=== PATIENT | female | born 1945 | race Caucasian/White ===

== ENCOUNTER 2020-11-03 07:08 | Outpatient (CLI) | payer MEDICARE ==
[2020-11-03 14:54] LABS: BASOPHILS # (AUTO) 0.1 10^3/uL (0.0-0.1); BASOPHILS % (AUTO) 1.3 %; EOSINOPHILS # (AUTO) 0.7 10^3/uL (0.0-0.7); EOSINOPHILS % (AUTO) 10.3 %; HCT - HEMATOCRIT 39.2 % (37.0-47.0); HGB - HEMOGLOBIN 12.2 g/dL (12.0-16.0); LYMPHOCYTES # (AUTO) 2.2 10^3/uL (1.5-3.5); LYMPHOCYTES % (AUTO) 32.4 %; MEAN CORPUSCULAR HEMOGLOBIN 28.1 pg (27.0-31.0); MEAN CORPUSCULAR HGB CONC 31.1 g/dL (32.0-36.0); MEAN CORPUSCULAR VOLUME 90.3 fL (81.0-99.0); MEAN PLATELET VOLUME 10.2 fL (7.9-10.8); MONOCYTES # (AUTO) 0.4 10^3/uL (0.0-1.0); MONOCYTES % (AUTO) 6.5 %; NEUTROPHILS # (AUTO) 3.4 10^3/uL (1.5-6.6); NEUTROPHILS % (AUTO) 49.2 %; PLT - PLATELET COUNT 278 10^3/uL (130-450); RED BLOOD COUNT 4.34 10^6/uL (4.20-5.40); RED CELL DISTRIBUTION WIDTH 13.2 % (12.0-15.0); WHITE BLOOD COUNT 6.8 x10^3/uL (4.8-10.8)
[2020-11-03 15:45] LABS: ALBUMIN 4.2 g/dL (3.2-5.5); ALBUMIN/GLOBULIN RATIO 1.6 (1.0-2.2); ALKALINE PHOSPHATASE 51 IU/L (42-121); ALT ALANINE AMINOTRANSFERASE 15 IU/L (10-60); AST ASPARTATE AMINOTRANSFERASE 21 IU/L (10-42); BILIRUBIN,TOTAL 0.9 mg/dL (0.2-1.0); BUN - BLOOD UREA NITROGEN 31 mg/dL (6-20); CALCIUM 9.5 mg/dL (8.5-10.3); CARBON DIOXIDE - CO2 28 mmol/L (21-32); CHLORIDE 103 mmol/L (101-111); CHOL/HDL RATIO 2.3 (<4.4); CHOLESTEROL 206 mg/dL; CREATININE 1.1 mg/dL (0.4-1.0); GFR - MDRD 49 (>89); GLUCOSE 100 mg/dL (70-100); HDL CHOLESTEROL 89 mg/dL; LDL CHOLESTEROL,CALCULATED 107 mg/dL; LDL/HDL RATIO 1.2 (<4.4); POTASSIUM 4.6 mmol/L (3.5-5.0); SODIUM 138 mmol/L (135-145); TOTAL PROTEIN 6.9 g/dL (6.7-8.2); TRIGLYCERIDES 51 mg/dL; VLDL CHOLESTEROL 10 mg/dL
== END 2020-11-03 07:09 | disposition home or self-care (01) ==
LOC: LAB.S 07:08
PROVIDERS: ATTEND Internal Medicine
DX: Z00.00 Encounter for general adult medical examination without abnormal findings (principal)
CPT/HCPCS: 36415; 80053; 80061; 83721; 84443; 85025

== ENCOUNTER 2020-11-30 21:05 | Outpatient (CLI) | payer MEDICARE | END 2020-11-30 21:06 | disposition critical access hospital (66) | LOC: EMS 21:05 | DX: Z04.3 Encounter for examination and observation following other accident (principal); M25.552 Pain in left hip; M25.532 Pain in left wrist | CPT/HCPCS: A0425; A0427 ==

== ENCOUNTER 2020-11-30 21:42 | Inpatient (IN) | payer MEDICARE ==
[2020-11-30] MEDS ORDERED: oxyCODONE 5 MG TABLET PO STA (23:32)
--- NOTE | 2020-11-30 23:51 | ED Physician Documentation ---
History of Present Illness - Stated complaint Stated Complaint: GLF - Chief complaint Chief Complaint: Trauma Ext - History obtained from History obtained from: Patient - Additonal information Additional information: 75-year-old woman presents with mechanical fall from standing today with sudden onset pain to the left hip and wrist that is constant, aching, severe, worse with range of motion of the wrist and hip. no HT, no loc. no other injury Review of Systems Skin: denies: Lesions, Laceration (s) Musculoskeletal: reports: Extremity pain, Joint pain Neurologic: denies: Focal weakness, Numbness PD PAST MEDICAL HISTORY - Allergies Allergies/Adverse Reactions: Allergies Allergy/AdvReac Type Severity Reaction Status Date / Time No Known Drug Allergies Allergy Verified 11/30/20 22:00 PD ED PE NORMAL - Vitals Vital signs reviewed: Yes - General General: Alert and oriented X 3, No acute distress, Well developed/nourished - HEENT HEENT: Atraumatic, PERRL, EOMI - Neck Neck: Supple, no meningeal sign - Derm Derm: Normal color, Warm and dry - Extremities Extremities: Other (deformity to L wrist with ttp. L hip tender with rom. 2+ BL radial and DP/PT pulses) - Neuro Neuro: Alert and oriented X 3, No motor deficit, No sensory deficit - Psych Psych: Normal mood, Normal affect Results - Vitals Vitals: Vital Signs - 24 hr 11/30/20 21:51 Temperature 35.8 C L Heart Rate 75 Respiratory 16 Rate Blood Pressure 219/91 H O2 Saturation 100 Oxygen O2 Source Room air PD MEDICAL DECISION MAKING - ED course ED course: 75-year-old woman presents with left intertrochanteric fracture and left wrist fracture. Discussed with orthopedics Dr. Benedict he will see her tomorrow. Will admit to medicine. Departure - Departure Disposition: [facility] DC/Xfer Clinical Impression: Hip fracture Distal radius fracture, left Qualifiers: Encounter type: initial encounter Fracture type: closed Condition: Stable Discharge Date/Time: 12/01/20 01:06
[2020-11-30] MEDS ORDERED: MORPHINE 2 MG/ML CARPUJECT IVP PRN (23:58)
--- NOTE | 2020-12-01 00:04 | HISTORY & PHYSICAL EXAMINATION ---
Chief Complaint - Chief Complaint Chief Complaint: Left wrist and hip pain History of Present Illness - Admitted From Admitted From:: Home - History Obtained From Records Reviewed: Yes History obtained from: Patient, ER Physician, EMR - History of Present Illness HPI Comment/Other: This is a 75-year-old female with a past medical history significant for hypertension who presents today complaining of left wrist and hip pain after a fall. She states she was walking her dog when the dog appeared to pull on the leash and she stumbled over her own feet and fell on her left side. She immediately complained of left hip and wrist pain. The pain is worse with movement. She reports no numbness in the extremities. She denies syncope or loss of consciousness. She states she felt nauseous after receiving fentanyl via EMS. She also felt chills and hot flashes on her way here. She denies any chest pain, dyspnea. She reports she is normally quite active. She denies any angina. She is able to climb up a flight of stairs without chest pain or dyspnea. She states she has been told she has a murmur in the past but to her knowledge this was not significant. She denies a history of stroke or diabetes. In the emergency department, she was found to have a left distal radius fracture and a left intertrochanteric femur fracture. This was discussed with orthopedic surgery who will evaluate her in the morning. Given the above findings, medicine was consulted for admission. I did discuss goals of care with the patient and she would like to be a DNR. History - Past Medical History Cardiovascular: reports: Hypertension, High cholesterol - Family & Social History Family History Comment/Other: Her father from prostate cancer. Both of her grandparents had a history of strokes. She reports no other significant family history. Living arrangement: At home Living Situation: With spouse/s.o. Social History Notes: She is a non-smoker. She drinks a half a beer with dinner on a regular basis. Meds/Allgy - Allergies Allergies/Adverse Reactions: Allergies Allergy/AdvReac Type Severity Reaction Status Date / Time No Known Drug Allergies Allergy Verified 11/30/20 22:00 Review of Systems - Constitutional Constitutional: reports: Fever, Chills, Other (Hot flashes.) - Cardiovascular Cariovascular: denies: Chest pain, Edema, Lightheadedness, Syncope, Exertional dyspnea, Decr. exercise tolerance - Respiratory Respiratory: denies: Cough, SOB at rest, SOB with exertion - Gastrointestinal Gastrointestinal: reports: Nausea. denies: Abdominal pain, Vomiting - Musculoskeletal Musculoskeletal: reports: Stiffness, Limited range of motion, Joint pain - Integumentary Integumentary: denies: Rash - Neurological Neurological: denies: General weakness, Focal weakness, Dizziness, Numbness, Pre-existing deficit - Hematologic/Lymphatic Hematologic/Lymphatic: denies: Anemia, Bleeding tendencies - All Other Systems All Other Systems: reports: Reviewed and negative Prior Level of Functionality: She is independent with her ADLs. Exam - Vital Signs Reviewed Vital Signs: Yes Vital Signs: Vital Signs x48h Temp Pulse Resp BP Pulse Ox 11/30/20 21:51 35.8 C L 75 16 219/91 H 100 - Physical Exam General Appearance: positive: Alert, Mild distress Eyes Bilateral: positive: Normal inspection, Conjunctivae nml ENT: positive: ENT inspection nml Neck: positive: Nml inspection Respiratory: positive: No respiratory distress. negative: Wheezes, Rales Cardiovascular: positive: Regular rate & rhythm, Systolic murmur. negative: No murmur, Tachycardia Abdomen: positive: Non-tender, No distention. negative: Tenderness Skin: positive: Warm, Dry Extremities: positive: No pedal edema, Other (Left lower extremity is externally rotated and shortened. There is mild tenderness over the lateral aspect of the left hip. Dorsalis pedis pulse is +2. Sensation intact. Left upper extremity is in a splint. Less than 2 seconds capillary refill.) Neurologic/Psychiatric: positive: Sensation nml, Other (Range of motion is limited due to pain.). negative: Disoriented to person, Disoriented to place, Disoriented to time, Sensory loss Conclusion/Plan - Problem List (1) Fracture of left hip Conclusion/Plan: This is secondary to mechanical fall. She will be made n.p.o. at midnight for surgical intervention with orthopedic surgery tomorrow. Pain control with Dilaudid IV as needed, Toradol IV as needed, and oral Tylenol and oxycodone as needed. She will need Fosamax 2 weeks postoperatively. PT and OT have been consulted as well as social work to assist with disposition but I am hopeful given she is quite active at baseline that she can go home with physical therapy. Qualifiers: Encounter type: initial encounter Fracture type: closed Qualified Code(s): S72.002A - Fracture of unspecified part of neck of left femur, initial encounter for closed fracture (2) Pre-op evaluation Conclusion/Plan: She has no active angina or dyspnea and is able to perform greater than 4 METS. Her Velarde perioperative risk is 0.2%. Given her murmur, we will order an echocardiogram for the morning. EKG has been ordered and is pending and unless both of these reveal any significant abnormalities then there would be no contraindication for surgical intervention. (3) Hypertension Conclusion/Plan: Her blood pressure is elevated with a systolic reading 200 which is likely exacerbated by her pain. We will resume her home benazepril and control her pain as mentioned above. There is no evidence of emergencies we will hold off on IV antihypertensives. Qualifiers: Hypertension type: primary hypertension Qualified Code(s): I10 - Essential (primary) hypertension (4) Distal radius fracture, left Conclusion/Plan: This is secondary to the fall. A splint was placed in the emergency department. Pain control with oxycodone as needed. Appreciate orthopedic surgery input. Qualifiers: Encounter type: initial encounter Fracture type: closed (5) Cardiac murmur Conclusion/Plan: She does have a systolic murmur on exam and we will order an echocardiogram for the morning. - Diagnostic Imaging Results Diagnostic Imaging Results: positive: Prelim report reviewed Core Measures - Anticipated LOS I expect patient to be DC'd or transferred within 96 hours.: Yes - Issues Hospital Issues and Management Plan: 75-year-old female who presents with a fall found to have a left hip fracture. We will admit her and consult with orthopedic surgery for surgical intervention. - DVT/VTE - Prophylaxis VTE/DVT Device ordered at admit?: Yes VTE/DVT Prophylaxis med ordered at admit?: Yes
[2020-12-01] MEDS: HYDROmorphone 2 MG/ML VIAL IVP PRN ×2 (01:10→05:53)
[2020-12-01] MEDS: SODIUM CHLORIDE FLUSH 0.9% 10 ML SYRINGE IVP SCH ×3 (01:10→16:28)
[2020-12-01 01:48] LABS: B. PARAPERTUSSIS- RESP PCR PAN NOT DETECTED; B. PERTUSSIS- RESP PCR PANEL NOT DETECTED; C. PNEUMONIAE- RESP PCR PANEL NOT DETECTED; CORONAVIRUS 229E-RESP PCR NOT DETECTED; CORONAVIRUS HKU1-RESP PCR NOT DETECTED; CORONAVIRUS NL63-RESP PCR NOT DETECTED; CORONAVIRUS OC43-RESP PCR NOT DETECTED; HUMAN METAPNEUMOVIRUS NOT DETECTED; INFLUENZA A- RESP PCR PANEL NOT DETECTED; INFLUENZA B - RESP PCR PANEL NOT DETECTED; M. PNEUMONIAE- RESP PCR PANEL NOT DETECTED; PARAINFLUENZA VIRUS 1 NOT DETECTED; PARAINFLUENZA VIRUS 2 NOT DETECTED; PARAINFLUENZA VIRUS 3 NOT DETECTED; PARAINFLUENZA VIRUS 4 NOT DETECTED; RHINOVIRUS/ENTEROVIRUS DETECTED; RSV- RESP PCR PANEL NOT DETECTED; SARS-CoV-2 -RESP PCR PANEL NOT DETECTED
[2020-12-01 05:00] LABS: BASOPHILS % (AUTO) 0.3 %; EOSINOPHILS % (AUTO) 0.1 %; HCT - HEMATOCRIT 32.9 % (37.0-47.0); HGB - HEMOGLOBIN 10.7 g/dL (12.0-16.0); LYMPHOCYTES # (AUTO) 0.9 10^3/uL (1.5-3.5); LYMPHOCYTES % (AUTO) 8.6 %; MEAN CORPUSCULAR HGB CONC 32.5 g/dL (32.0-36.0); MEAN CORPUSCULAR VOLUME 89.2 fL (81.0-99.0); MEAN PLATELET VOLUME 9.8 fL (7.9-10.8); MONOCYTES # (AUTO) 0.4 10^3/uL (0.0-1.0); MONOCYTES % (AUTO) 4.1 %; NEUTROPHILS # (AUTO) 9.2 10^3/uL (1.5-6.6); NEUTROPHILS % (AUTO) 86.5 %; PLT - PLATELET COUNT 234 10^3/uL (130-450); RED BLOOD COUNT 3.69 10^6/uL (4.20-5.40); RED CELL DISTRIBUTION WIDTH 12.7 % (12.0-15.0); WHITE BLOOD COUNT 10.6 x10^3/uL (4.8-10.8)
[2020-12-01 05:13] LABS: CALCIUM 9.3 mg/dL (8.5-10.3); MAGNESIUM 2.2 mg/dL (1.7-2.8); POTASSIUM 4.4 mmol/L (3.5-5.0)
[2020-12-01] MEDS: ONDANSETRON 4 MG/2 ML VIAL IVP PRN ×2 (05:53→17:40)
--- NOTE | 2020-12-01 08:33 | XRAY Report ---
PROCEDURE: Wrist 2 View LT INDICATIONS: fall; r/o fx TECHNIQUE: 3 views of the wrist were acquired. COMPARISON: None FINDINGS: Bones: No dislocations. No suspicious bony lesions. There is a dorsally angulated intra-articular mildly comminuted fracture involving the distal radius, and a definite distal ulnar fracture plane is not seen. Scaphoid view: Not obtained but the scaphoid visualized appears normal except for mild degenerative change. Soft tissues: No suspicious soft tissue calcifications. IMPRESSION: Distal radius Colle's fracture with dorsal angulation. Reviewed by: Omar Marie MD on 12/01/2020 8:31 AM PDT Approved by: Omar Marie MD on 12/01/2020 8:31 AM PDT Station ID: [id number]
--- NOTE | 2020-12-01 08:34 | XRAY Report ---
PROCEDURE: Hip w/Pelvis 2-3V LT INDICATIONS: fall TECHNIQUE: AP pelvis with lateral view(s) of the left hip(s). COMPARISON: None. FINDINGS: Bones: No dislocations. Pelvic ring appears intact. No suspicious bony lesions. There is an inter trochanteric left hip fracture, and degenerative osteoarthritic change at each hip is moderately shaji re. Soft tissues: The visualized bowel gas pattern is normal. No suspicious soft tissue calcifications. IMPRESSION: Intertrochanteric left hip fracture, moderately severe bilateral joint osteoarthritis. N o pelvic fracture is found. Reviewed by: Omar Marie MD on 12/01/2020 8:32 AM PDT Approved by: Omar Marie MD on 12/01/2020 8:32 AM PDT Station ID: [id number]
--- NOTE | 2020-12-01 08:46 | CONSULTATION NOTE ---
Referring Provider Name of Referring Provider:: Dr. Milan, Dr. Tejada Consult Date: 12/01/20 Chief Complaint - Chief Complaint Chief Complaint: Pain left hip and left wrist following fall History of Present Illness - History Obtained From Records Reviewed: Yes History obtained from: Patient Exam Limitations: Lethargy from pain medications - History of Present Illness HPI Comment/Other: 75-year-old woman who fell from standing height while walking her dog. She became entangled with the lesion her dog or both leading to fall. She enjoys walking and enjoys being active outdoors. After the fall she had immediate pain to left hip and thigh as well as left wrist as the fall was on her left side. She has no complaints of acute pain to right hip. She has a history of pain prior to fall to both hips but apparently has tolerated it. The pain to both hips have been present for least 5 years. She has no neurologic or vascular symptoms to left upper or left lower extremity. She denies syncope, chest pain, shortness of breath, dizziness or loss of consciousness associated with her fall prior to admission. She was seen in the emergency room yesterday evening and admitted to the hospital. History - Past Medical History Cardiovascular: reports: Hypertension, High cholesterol MRSA Hx?: No - Past Surgical History HEENT: reports: Rhinoplasty - Family & Social History Family History Comment/Other: Her father from prostate cancer. Both of her grandparents had a history of strokes. She reports no other significant family history. Living arrangement: At home Living Situation: With spouse/s.o. Social History Notes: She is a non-smoker. She drinks a half a beer with dinner on a regular basis. - POLST Patient has POLST: No Meds/Allgy - Allergies Allergies/Adverse Reactions: Allergies Allergy/AdvReac Type Severity Reaction Status Date / Time No Known Drug Allergies Allergy Verified 11/30/20 22:00 Exam - Vital Signs Vital Signs: Vital Signs x48h Temp Pulse Pulse Resp BP BP Pulse Ox 12/01/20 07:43 36.9 C 66 16 150/67 H 99 12/01/20 01:08 37.6 C 72 16 153/61 H 97 12/01/20 00:45 36.1 C L 63 16 147/62 H 96 - Physical Exam General Appearance: positive: No acute distress Neck: negative: Other (Nontender) Respiratory: positive: Chest non-tender, No respiratory distress Cardiovascular: positive: Regular rate & rhythm Peripheral Pulses: positive: 1+ Skin: positive: Color nml, Dry Extremities: positive: Other Neurologic/Psychiatric: positive: Oriented x3 Conclusion and Plan - Lab Results Laboratory Results 12/01/20 04:50: Sodium 138, Potassium 4.4, Chloride 101, Carbon Dioxide 26, Anion Gap 11.0, BUN 29 H, Creatinine 1.0, Estimated GFR (MDRD) 54 L, Glucose 158 H, Calcium 9.3, Magnesium 2.2 12/01/20 04:50: WBC 10.6, RBC 3.69 L, Hgb 10.7 L, Hct 32.9 L, MCV 89.2, MCH 29.0, MCHC 32.5, RDW 12.7, Plt Count 234, MPV 9.8, Neut # (Auto) 9.2 H, Lymph # (Auto) 0.9 L, [place] # (Auto) 0.4, Eos # (Auto) 0.0, Baso # (Auto) 0.0, Absolute Nucleated RBC 0.00, Nucleated RBC % 0.0 12/01/20 00:35: Nasal Adenovirus (PCR) NOT DETECTED, Nasal B. parapertussis DNA (PCR) NOT DETECTED, Nasal Coronavir 229E PCR NOT DETECTED, Nasal Coronavir HKU1 PCR NOT DETECTED, Nasal Coronavir NL63 PCR NOT DETECTED, Nasal Coronavir OC43 PCR NOT DETECTED, Nasal Enterovir/Rhinovir PCR DETECTED A, Nasal Influenza B PCR NOT DETECTED, Nasal Influenza A PCR NOT DETECTED, Nasal Parainfluen 1 PCR NOT DETECTED, Nasal Parainfluen 2 PCR NOT DETECTED, Nasal Parainfluen 3 PCR NOT DETECTED, Nasal Parainfluen 4 PCR NOT DETECTED, Nasal RSV (PCR) NOT DETECTED, Nasal B.pertussis DNA PCR NOT DETECTED, Nasal C.pneumoniae (PCR) NOT DETECTED, Alex Human Metapneumo PCR NOT DETECTED, Nasal M.pneumoniae (PCR) NOT DETECTED, Nasal SARS-CoV-2 (PCR) NOT DETECTED - Diagnostic Imaging Results Diagnostic Imaging Results: negative: Read independently (X-rays of the left wrist show a mildly shortened angulated fracture of the left distal radius. X- rays of the left hip show a mildly displaced intertrochanteric fracture left hip. Both hip joints show advanced hip joint space narrowing with osteophytes consistent with bilateral hip osteoarthritis) - Diagnosis Diagnosis: 1. Mildly displaced intertrochanteric fracture left hip. 2. Displaced left distal radius fracture, closed. 3. Bilateral hip osteoarthritis - Plan Plan: The plan would be for stabilization of her intertrochanteric fracture with open reduction internal fixation left hip The left distal radius can be treated closed or open. Results are comparable and probably will proceed with the least close reduction of left distal radius. She may require bilateral hip arthroplasties in the future and this was discussed with her. These would be best done as elective procedures in my opinion. The patient is in agreement to the proposed procedures. I have tried to discussed the risk, goals and likelihood of achieving goals, alternatives and their consequences, disability and rarely . She understands that even with fracture healing of her left hip, a hip replacement may be likely. She also understands that the left wrist will have some stiffness as part of the natural history of fracture healing of the left distal radius.
[2020-12-01 08:54] LABS: ABSOLUTE RETICS # AUTO 0.048 10^6/uL (0.020-0.110); RED BLOOD COUNT 3.63 10^6/uL (4.20-5.40); RETICULOCYTE COUNT % (AUTO) 1.32 % (0.5-2.3)
[2020-12-01] MEDS ORDERED: HYDROmorphone 2 MG/ML VIAL IVP PRN (08:56)
[2020-12-01] MEDS ORDERED: SODIUM CHLORIDE 0.9% 1,000 ML IV SCH (09:00)
[2020-12-01] MEDS ORDERED: ENOXAPARIN 40 MG/0.4 ML SYRINGE SUBQ SCH (09:00)
[2020-12-01] MEDS: ENOXAPARIN 40 MG/0.4 ML SYRINGE SUBQ SCH (09:24)
[2020-12-01 09:25] LABS: % IRON SATURATION 10 % (20-50); IRON 31 ug/dL (28-170); TOTAL IRON BINDING CAPACITY 311 ug/dL (250-450); TRANSFERRIN 222 mg/dL (192-382)
[2020-12-01] MEDS: SODIUM CHLORIDE 0.9% 1,000 ML IV SCH (09:27)
[2020-12-01] MEDS: PROCHLORPERAZINE 10 MG/2 ML VIAL IVP PRN (10:26)
[2020-12-01 11:23] LABS: FERRITIN 105.6 ng/mL (11.0-306.8)
[2020-12-01] MEDS: KETOROLAC 30 MG/ML VIAL IVP PRN ×2 (12:42→20:17)
--- NOTE | 2020-12-01 14:18 | PHARMACY PROGRESS NOTE ---
- Best Possible Medication History Admit Date and Time: 11/30/20 6615 Processed by: Pharmacy Medication History completed: Yes Patient Interview: Completed (PATIENT ABLE TO CONFIRM HOME MEDICATIONS) As the person ultimately responsible for medication therapy, providers are able to order a medication from an existing home medication list in [facility] via the "Reconcile Routine" prior to Confirmation of that medication by applications support engineer. Such practice is discouraged except when the physician, in their clinical judgment, deems that a medical need exists for a medication without regard to previous use.
[2020-12-01] MEDS: ACETAMINOPHEN 325 MG TABLET PO PRN ×2 (16:52→22:54)
[2020-12-01] MEDS ORDERED: ZOLPIDEM 5 MG TABLET PO PRN (18:03)
[2020-12-01] MEDS: ATORVASTATIN 40 MG TABLET PO SCH (20:34)
[2020-12-02] MEDS: ONDANSETRON ODT 4 MG TABLET TL PRN ×2 (00:45→12:49)
[2020-12-02] MEDS: oxyCODONE 5 MG TABLET PO PRN ×4 (00:45→16:55)
[2020-12-02] MEDS: SODIUM CHLORIDE FLUSH 0.9% 10 ML SYRINGE IVP SCH ×3 (00:48→18:17)
[2020-12-02] MEDS: SODIUM CHLORIDE 0.9% 1,000 ML IV SCH ×5 (03:37→20:17)
[2020-12-02 05:36] LABS: BASOPHILS % (AUTO) 0.4 %; EOSINOPHILS # (AUTO) 0.1 10^3/uL (0.0-0.7); HGB - HEMOGLOBIN 8.9 g/dL (12.0-16.0); LYMPHOCYTES # (AUTO) 1.7 10^3/uL (1.5-3.5); LYMPHOCYTES % (AUTO) 21.5 %; MEAN CORPUSCULAR VOLUME 87.9 fL (81.0-99.0); MEAN PLATELET VOLUME 10.1 fL (7.9-10.8); MONOCYTES # (AUTO) 0.5 10^3/uL (0.0-1.0); MONOCYTES % (AUTO) 6.9 %; NEUTROPHILS # (AUTO) 5.3 10^3/uL (1.5-6.6); NEUTROPHILS % (AUTO) 69.7 %; PLT - PLATELET COUNT 189 10^3/uL (130-450); RED BLOOD COUNT 3.07 10^6/uL (4.20-5.40); WHITE BLOOD COUNT 7.7 x10^3/uL (4.8-10.8)
[2020-12-02 05:39] LABS: CALCIUM 8.6 mg/dL (8.5-10.3); CREATININE 1.3 mg/dL (0.4-1.0); MAGNESIUM 2.3 mg/dL (1.7-2.8)
[2020-12-02] MEDS ORDERED: KETOROLAC 30 MG/ML VIAL IVP PRN (07:09)
[2020-12-02] MEDS: ACETAMINOPHEN 325 MG TABLET PO PRN (08:42)
[2020-12-02] MEDS: ENOXAPARIN 40 MG/0.4 ML SYRINGE SUBQ SCH (08:51)
[2020-12-02] MEDS ORDERED: lisinopriL 20 MG TABLET PO SCH (09:00)
[2020-12-02] MEDS ORDERED: ENOXAPARIN 40 MG/0.4 ML SYRINGE SUBQ SCH (09:00)
[2020-12-02] MEDS ORDERED: BUPIVACAINE 0.25% PF 30 ML VIAL ONE (10:13)
--- NOTE | 2020-12-02 10:21 | ANESTHESIA ---
Pre-Anesthesia VS, & Labs - Diagnosis Diagnosis 1. Mildly displaced intertrochanteric fracture left hip 2. Displaced left distal radius fracture, closed 3. Bilateral hip osteoarthritis - Procedure L hip nail, L wrist closed reduction Vital Signs: Temp Pulse Resp BP Pulse Ox 37.1 C 77 14 156/73 H 98 12/02/20 09:33 12/02/20 09:33 12/02/20 09:33 12/02/20 09:33 12/02/20 09:33 Height: 5 ft 6 in Weight (kg): 58.967 kg Body Mass Index: 20.9 BMI Classification: Healthy weight - NPO >8 hours - Is Patient ?: No - Lab Results Current Lab Results: Laboratory Tests 12/02/20 04:34: Sodium 135, Potassium 4.0, Chloride 100 L, Carbon Dioxide 25, Anion Gap 10.0, BUN 33 H, Creatinine 1.3 H, Estimated GFR (MDRD) 40 L, Glucose 112 H, Calcium 8.6, Magnesium 2.3 12/02/20 04:34: WBC 7.7, RBC 3.07 L, Hgb 8.9 L, Hct 27.0 L, MCV 87.9, MCH 29.0, MCHC 33.0, RDW 13.0, Plt Count 189, MPV 10.1, Neut # (Auto) 5.3, Lymph # (Auto) 1.7, [place] # (Auto) 0.5, Eos # (Auto) 0.1, Baso # (Auto) 0.0, Absolute Nucleated RBC 0.00, Nucleated RBC % 0.0 12/01/20 04:50: Lactate Dehydrogenase 146 12/01/20 04:50: Ferritin 105.6, Vitamin B12 2231 H 12/01/20 04:50: Iron 31, TIBC 311, % Saturation 10 L, Transferrin 222 12/01/20 04:50: RBC 3.63 L, Reticulocyte % (Auto) 1.32, Absolute Retic 0.048 12/01/20 04:50: Sodium 138, Potassium 4.4, Chloride 101, Carbon Dioxide 26, Anio n Gap 11.0, BUN 29 H, Creatinine 1.0, Estimated GFR (MDRD) 54 L, Glucose 158 H, Calcium 9.3, Magnesium 2.2 12/01/20 04:50: WBC 10.6, RBC 3.69 L, Hgb 10.7 L, Hct 32.9 L, MCV 89.2, MCH 29.0, MCHC 32.5, RDW 12.7, Plt Count 234, MPV 9.8, Neut # (Auto) 9.2 H, Lymph # (Auto) 0.9 L, [place] # (Auto) 0.4, Eos # (Auto) 0.0, Baso # (Auto) 0.0, Absolute Nucleated RBC 0.00, Nucleated RBC % 0.0 Lab results reviewed: Yes Fish Bones: 12/02/20 04:34 12/02/20 04:34 Home Medications and Allergies Home Medications: Ambulatory Orders Benazepril HCl [Lotensin] 20 mg PO DAILY 12/01/20 Rosuvastatin Calcium [Crestor] 20 mg PO QPM 12/01/20 Zolpidem Tartrate [Ambien Cr] 6.25 mg PO QPM PRN 12/01/20 Active Medications Acetaminophen (Acetaminophen 325 Mg Tablet) 650 mg PO Q4HR PRN PRN Reason: Pain 1 to 4 Last Admin: 12/02/20 08:42 Dose: 650 mg Documented by: Atorvastatin Calcium (Atorvastatin 40 Mg Tablet) 40 mg PO QPM [facility] Last Admin: 12/01/20 20:34 Dose: 40 mg Documented by: Enoxaparin Sodium (Enoxaparin 40 Mg/0.4 Ml Syringe) 40 mg SUBQ DAILY [facility] Last Admin: 12/02/20 08:51 Dose: Not Given Documented by: Hydralazine HCl (Hydralazine Inj 20 Mg/Ml Vial) 10 mg IVP QID PRN PRN Reason: Hypertensive Emergency Hydromorphone HCl (Hydromorphone 1 Mg/Ml Carpuject) 1 mg IVP Q2HR PRN PRN Reason: PAIN Ondansetron HCl (Ondansetron 4 Mg/2 Ml Vial) 4 mg IVP Q6HR PRN PRN Reason: Nausea / Vomiting Last Admin: 12/01/20 17:40 Dose: 4 mg Documented by: Ondansetron HCl (Ondansetron Odt 4 Mg Tablet) 4 mg TL Q6HR PRN PRN Reason: Nausea / Vomiting Last Admin: 12/02/20 00:45 Dose: 4 mg Documented by: Oxycodone HCl (Oxycodone 5 Mg Tablet) 5 mg PO Q4HR PRN PRN Reason: Pain 5 to 7 Last Admin: 12/02/20 10:05 Dose: 5 mg Documented by: Prochlorperazine Edisylate (Prochlorperazine 10 Mg/2 Ml Vial) 10 mg IVP Q6HR PRN PRN Reason: Nausea / Vomiting Last Admin: 12/01/20 10:26 Dose: 10 mg Documented by: Sodium Chloride (Sodium Chloride Flush 0.9% 10 Ml Syringe) 10 ml IVP PRN PRN PRN Reason: NEEDED PER PROVIDER ORDERS Sodium Chloride (Sodium Chloride Flush 0.9% 10 Ml Syringe) 10 ml IVP 0100,0900,1700 NITO Last Admin: 12/02/20 00:48 Dose: 10 ml Documented by: Zolpidem Tartrate (Zolpidem 5 Mg Tablet) 5 mg PO QPM PRN PRN Reason: Insomnia Benazepril HCl [Lotensin] 20 mg PO DAILY 12/01/20 Rosuvastatin Calcium [Crestor] 20 mg PO QPM 12/01/20 Zolpidem Tartrate [Ambien Cr] 6.25 mg PO QPM PRN 12/01/20 Allergies/Adverse Reactions: Allergies Allergy/AdvReac Type Severity Reaction Status Date / Time No Known Drug Allergies Allergy Verified 11/30/20 22:00 Anes History & Medical History - Anesthetic History Anesthesia Complications: reports: No previous complications Family history of Anesthesia Complications: Denies Family history of Malignant Hyperthermia: Denies - Medical History Cardiovascular: reports: Hypertension, High cholesterol Smoking Status: Never smoker - Surgical History Eyes Ears Nose Throat (EENT): reports: Rhinoplasty Exam General: Alert, Oriented x3, Cooperative Dental: WNL Mouth Openin Fingerbreadth Neck Mobility: Normal Mallampati classification: II Thyromental Distance: 4-6 cm Respiratory: Lungs clear, Normal breath sounds, No respiratory distress Cardiovascular: Regular rate Neurological: Normal speech Mental/Cognitive Status: Alert/Oriented X3, Normal for patient Cognitive Status: Within normal limits Plan Anesthesia Type: General (backup), Spinal, Fascia [place] Block Regional Block: Per Surgeon's request for Post Op pain control Consent for Procedure(s) Verified and Reviewed: Yes Code Status: Attempt Resuscitation ASA classification: 2-Mild systemic disease Is this case an emergency?: No
[2020-12-02] MEDS ORDERED: MIDAZOLAM 2 MG/2 ML VIAL ONE (10:58)
[2020-12-02] MEDS ORDERED: PHENYLEPHRINE 10 MG/ML VIAL ONE (10:59)
[2020-12-02] MEDS ORDERED: PROPOFOL 200 MG/20 ML VIAL IVP ONE ×2 (11:00→13:42)
[2020-12-02] MEDS ORDERED: LIDOCAINE-MPF 2% 5 ML VIAL ONE (11:01)
[2020-12-02] MEDS ORDERED: KETAMINE 500 MG/10 ML VIAL ONE (12:08)
[2020-12-02] MEDS ORDERED: SODIUM CHLORIDE 0.9% 10 ML VIAL IVP ONE (12:09)
--- NOTE | 2020-12-02 12:24 | PROVIDER PROGRESS NOTE ---
Assessment/Plan - Problem List (1) Fracture of left hip Qualifiers: Encounter type: initial encounter Fracture type: closed Qualified Code(s): S72.002A - Fracture of unspecified part of neck of left femur, initial encounter for closed fracture Assessment/Plan: pt will have left hip repair on today noon, will followup. continue pain control, continue PT/OT, DVT prophylaxis per surgeon (2) Pre-op evaluation Conclusion/Plan: my colleague did pre-op evaluation. ECHO reveals normal EF with mild aortic stenosis. EKG reveals Sinus rhythm. She has no active angina or dyspnea and is able to perform greater than 4 METS. Her [place] perioperative risk is 0.2%. (3) Hypertension stable. continue Vital signs monitor (4) Distal radius fracture, left stable. This is secondary to the fall. A splint was placed in the emergency department. Pain control with oxycodone and HydroMorphine as needed. Appreci ate orthopedic surgery input. (5) Cardiac murmur ECHO reveals normal EF with mild aortic stenosis. EKG reveals Sinus rhythm. (6)dehydration pt has slight elevated creatinine and dehydration, order IVF 125cc/h, lab monitor - Current Meds Current Meds: Current Medications Generic Name Dose Route Start Last Admin Trade Name Freq PRN Reason Stop Dose Admin Acetaminophen 650 mg 11/30/20 23:58 12/02/20 08:42 Acetaminophen 325 Mg Tablet PO 650 mg Q4HR PRN Administration Pain 1 to 4 Atorvastatin Calcium 40 mg 12/01/20 21:00 12/01/20 20:34 Atorvastatin 40 Mg Tablet PO 40 mg QPM NITO Administration Enoxaparin Sodium 40 mg 12/01/20 09:02 12/02/20 08:51 Enoxaparin 40 Mg/0.4 Ml Syringe SUBQ Not Given DAILY NITO Ondansetron HCl 4 mg 11/30/20 23:58 12/01/20 17:40 Ondansetron 4 Mg/2 Ml Vial IVP 4 mg Q6HR PRN Administration Nausea / Vomiting Ondansetron HCl 4 mg 11/30/20 23:58 12/02/20 00:45 Ondansetron Odt 4 Mg Tablet TL 4 mg Q6HR PRN Administration Nausea / Vomiting Oxycodone HCl 5 mg 11/30/20 23:58 12/02/20 10:05 Oxycodone 5 Mg Tablet PO 5 mg Q4HR PRN Administration Pain 5 to 7 Prochlorperazine Edisylate 10 mg 12/01/20 08:56 12/01/20 10:26 Prochlorperazine 10 Mg/2 Ml Vial IVP 10 mg Q6HR PRN Administration Nausea / Vomiting Sodium Chloride 10 ml 12/01/20 01:00 12/02/20 00:48 Sodium Chloride Flush 0.9% 10 Ml Syringe IVP 10 ml 0100,0900,1700 NITO Administration - Lab Result Fish Bone Diagrams: 12/02/20 04:34 12/02/20 04:34 - Additional Planning My Orders: My Active Orders 12/01/20 18:03 Zolpidem [Ambien] 5 mg PO QPM PRN 12/01/20 21:00 Atorvastatin [Lipitor] 40 mg PO QPM 12/02/20 00:01 NPO except Meds at Midnight [DIET] 12/02/20 07:12 hydrALAZINE INJ [Apresoline Inj] 10 mg IVP QID PRN 12/02/20 07:13 Incentive Spirometry - RT [RC] .tid 12/02/20 14:00 H&H [HEMOGLOBIN AND HEMATOCRIT] [HEME] Timed Subjective - Subjective Patient Reports: Feeling Better Objective Vital Signs: Vital Signs - 24 hr 12/01/20 12/02/20 12/02/20 16:07 00:15 09:33 Temperature 36.9 C 37.1 C 37.1 C Heart Rate [ 71 78 77 Brachial] Respiratory 18 16 14 Rate Blood Pressure 143/67 H 145/79 H 156/73 H [Right Brachial artery] O2 Saturation 99 97 98 Oxygen O2 Source Room air I&O (Last 24 Hrs): Intake and Output Totals x24h 11/30/20 12/01/20 12/02/20 23:59 23:59 23:59 Intake Total 1432.96 490.48 Output Total 80 Balance 1352.96 490.48 General: Alert, Oriented x3, Cooperative, No acute distress HEENT: Atraumatic Neck: Supple Lymphatic: no adenopathy Neuro: Alert, Non Focal, Oriented Times 3 Cardiovascular: Regular rate, Normal S1, Normal S2 Respiratory: Chest non-tender, No respiratory distress Abdomen: Normal bowel sounds, Soft Extremities: Normal pulses - Results Results: Laboratory Results WBC 7.7 x10^3/uL (4.8-10.8) 12/02/20 04:34 RBC 3.07 10^6/uL (4.20-5.40) L 12/02/20 04:34 Hgb 8.9 g/dL (12.0-16.0) L 12/02/20 04:34 Hct 27.0 % (37.0-47.0) L 12/02/20 04:34 MCV 87.9 fL (81.0-99.0) 12/02/20 04:34 MCH 29.0 pg (27.0-31.0) 12/02/20 04:34 MCHC 33.0 g/dL (32.0-36.0) 12/02/20 04:34 RDW 13.0 % (12.0-15.0) 12/02/20 04:34 Plt Count 189 10^3/uL (130-450) 12/02/20 04:34 MPV 10.1 fL (7.9-10.8) 12/02/20 04:34 Reticulocyte % (Auto) 1.32 % (0.5-2.3) 12/01/20 04:50 Neut # (Auto) 5.3 10^3/uL (1.5-6.6) 12/02/20 04:34 Lymph # (Auto) 1.7 10^3/uL (1.5-3.5) 12/02/20 04:34 [place] # (Auto) 0.5 10^3/uL (0.0-1.0) 12/02/20 04:34 Eos # (Auto) 0.1 10^3/uL (0.0-0.7) 12/02/20 04:34 Baso # (Auto) 0.0 10^3/uL (0.0-0.1) 12/02/20 04:34 Absolute Nucleated RBC 0.00 x10^3/uL 12/02/20 04:34 Nucleated RBC % 0.0 /100WBC 12/02/20 04:34 Absolute Retic 0.048 10^6/uL (0.020-0.110) 12/01/20 04:50 Sodium 135 mmol/L (135-145) 12/02/20 04:34 Potassium 4.0 mmol/L (3.5-5.0) 12/02/20 04:34 Chloride 100 mmol/L (101-111) L 12/02/20 04:34 Carbon Dioxide 25 mmol/L (21-32) 12/02/20 04:34 Anion Gap 10.0 (6-13) 12/02/20 04:34 BUN 33 mg/dL (6-20) H 12/02/20 04:34 Creatinine 1.3 mg/dL (0.4-1.0) H 12/02/20 04:34 Estimated GFR (MDRD) 40 (>89) L 12/02/20 04:34 Glucose 112 mg/dL (70-100) H 12/02/20 04:34 Calcium 8.6 mg/dL (8.5-10.3) 12/02/20 04:34 Magnesium 2.3 mg/dL (1.7-2.8) 12/02/20 04:34 Iron 31 ug/dL (28-170) 12/01/20 04:50 TIBC 311 ug/dL (250-450) 12/01/20 04:50 % Saturation 10 % (20-50) L 12/01/20 04:50 Transferrin 222 mg/dL (192-382) 12/01/20 04:50 Ferritin 105.6 ng/mL (11.0-306.8) 12/01/20 04:50 Lactate Dehydrogenase 146 IU/L (91-225) 12/01/20 04:50 Vitamin B12 2231 pg/mL (180-914) H 12/01/20 04:50 Nasal Adenovirus (PCR) NOT DETECTED 12/01/20 00:35 Nasal B. parapertussis DNA (PCR) NOT DETECTED 12/01/20 00:35 Nasal Coronavir 229E PCR NOT DETECTED 12/01/20 00:35 Nasal Coronavir HKU1 PCR NOT DETECTED 12/01/20 00:35 Nasal Coronavir NL63 PCR NOT DETECTED 12/01/20 00:35 Nasal Coronavir OC43 PCR NOT DETECTED 12/01/20 00:35 Nasal Enterovir/Rhinovir PCR DETECTED A 12/01/20 00:35 Nasal Influenza B PCR NOT DETECTED 12/01/20 00:35 Nasal Influenza A PCR NOT DETECTED 12/01/20 00:35 Nasal Parainfluen 1 PCR NOT DETECTED 12/01/20 00:35 Nasal Parainfluen 2 PCR NOT DETECTED 12/01/20 00:35 Nasal Parainfluen 3 PCR NOT DETECTED 12/01/20 00:35 Nasal Parainfluen 4 PCR NOT DETECTED 12/01/20 00:35 Nasal RSV (PCR) NOT DETECTED 12/01/20 00:35 Nasal B.pertussis DNA PCR NOT DETECTED 12/01/20 00:35 Nasal C.pneumoniae (PCR) NOT DETECTED 12/01/20 00:35 Alex Human Metapneumo PCR NOT DETECTED 12/01/20 00:35 Nasal M.pneumoniae (PCR) NOT DETECTED 12/01/20 00:35 Nasal SARS-CoV-2 (PCR) NOT DETECTED 12/01/20 00:35 ABX Reporting Has patient been on IV antibiotics over the past 48 hours?: No Current Medications - Current Medications Current Medications: Active Medications Acetaminophen (Acetaminophen 325 Mg Tablet) 650 mg PO Q4HR PRN PRN Reason: Pain 1 to 4 Last Admin: 12/02/20 08:42 Dose: 650 mg Documented by: Atorvastatin Calcium (Atorvastatin 40 Mg Tablet) 40 mg PO QPM [facility] Last Admin: 12/01/20 20:34 Dose: 40 mg Documented by: Enoxaparin Sodium (Enoxaparin 40 Mg/0.4 Ml Syringe) 40 mg SUBQ DAILY [facility] Last Admin: 12/02/20 08:51 Dose: Not Given Documented by: Hydralazine HCl (Hydralazine Inj 20 Mg/Ml Vial) 10 mg IVP QID PRN PRN Reason: Hypertensive Emergency Hydromorphone HCl (Hydromorphone 1 Mg/Ml Carpuject) 1 mg IVP Q2HR PRN PRN Reason: PAIN Sodium Chloride (Normal Saline 0.9%) 1,000 mls @ 125 mls/hr IV .Q8H [facility] Ondansetron HCl (Ondansetron 4 Mg/2 Ml Vial) 4 mg IVP Q6HR PRN PRN Reason: Nausea / Vomiting Last Admin: 12/01/20 17:40 Dose: 4 mg Documented by: Ondansetron HCl (Ondansetron Odt 4 Mg Tablet) 4 mg TL Q6HR PRN PRN Reason: Nausea / Vomiting Last Admin: 12/02/20 12:49 Dose: 4 mg Documented by: Oxycodone HCl (Oxycodone 5 Mg Tablet) 5 mg PO Q4HR PRN PRN Reason: Pain 5 to 7 Last Admin: 12/02/20 10:05 Dose: 5 mg Documented by: Prochlorperazine Edisylate (Prochlorperazine 10 Mg/2 Ml Vial) 10 mg IVP Q6HR PRN PRN Reason: Nausea / Vomiting Last Admin: 12/01/20 10:26 Dose: 10 mg Documented by: Sodium Chloride (Sodium Chloride Flush 0.9% 10 Ml Syringe) 10 ml IVP PRN PRN PRN Reason: NEEDED PER PROVIDER ORDERS Sodium Chloride (Sodium Chloride Flush 0.9% 10 Ml Syringe) 10 ml IVP 0100,0900,1700 NITO Last Admin: 12/02/20 13:44 Dose: Not Given Documented by: Zolpidem Tartrate (Zolpidem 5 Mg Tablet) 5 mg PO QPM PRN PRN Reason: Insomnia Benazepril HCl [Lotensin] 20 mg PO DAILY 12/01/20 Rosuvastatin Calcium [Crestor] 20 mg PO QPM 12/01/20 Zolpidem Tartrate [Ambien Cr] 6.25 mg PO QPM PRN 12/01/20
[2020-12-02] MEDS ORDERED: ceFAZolin 1 GM VIAL ONE (13:39)
[2020-12-02] MEDS ORDERED: TRANEXAMIC ACID 1,000 MG/10 ML VIAL ONE (13:46)
[2020-12-02] MEDS ORDERED: HYDROmorphone 0.5 MG/0.5 ML SYRINGE IVP PRN (14:37)
[2020-12-02] MEDS ORDERED: MORPHINE 2 MG/ML CARPUJECT IVP PRN (14:37)
[2020-12-02] MEDS ORDERED: ePHEDrine 50 MG/ML VIAL IVP PRN (14:37)
[2020-12-02] MEDS ORDERED: METOCLOPRAMIDE 10 MG/2 ML VIAL IVP PRN (14:37)
[2020-12-02] MEDS ORDERED: ONDANSETRON 4 MG/2 ML VIAL IVP PRN (14:37)
[2020-12-02] MEDS ORDERED: fentaNYL 100 MCG/2 ML VIAL IVP PRN (14:37)
[2020-12-02] MEDS ORDERED: NALOXONE 0.4 MG/ML VIAL IVP PRN (14:37)
[2020-12-02] MEDS ORDERED: ATROPINE ABBOJECT 1 MG/10 ML SYRINGE IVP PRN (14:37)
[2020-12-02] MEDS ORDERED: LACTATED RINGERS 1,000 ML IV SCH (15:00)
[2020-12-02] MEDS ORDERED: LACTATED RINGERS 1,000 ML IV ONE (15:46)
--- NOTE | 2020-12-02 15:53 | OPERATIVE REPORT ---
Operative Report - General Admit Date: 11/30/20 Procedure Date: 12/02/20 Planned Procedure: 1. Open reduction internal fixation intertrochanteric fracture left hip 2. Closed reduction left distal radius and application of short arm cast Pre-Op Diagnosis: And displaced left distal radius fracture Post Op Diagnosis: Displaced left hip intertrochanteric fracture and displaced left distal rad - Procedure Note Primary Surgeon: Gary Benedict MD Anesthesia Provider: Blair Odonnell CRNA Anesthesia Technique: Moderate sedation, Spinal Estimated Blood Loss (mL): 25 Indications: This is a relatively active 75-year-old woman who took a fall walking her dog, fell on her left side and was admitted to the hospital with left hip and left wrist pain. She was found to have a displaced intertrochanteric fracture of the left hip and a fracture left distal radius. She did have painful movement of the left hip, no fracture hematoma and x-ray showed the mildly displaced intertrochanteric fracture of the left. She also had tenderness in the length this with x-rays showing shortening and angulation of the left distal radius fracture. Both fractures were closed injuries with intact skin, no neurovascular deficit. She had been evaluated by the hospitalist prior to surgery and was felt to be a suitable candidate for surgery. The patient was in agreement to the surgery and signed informed consent prior to surgery Findings: Displaced intertrochanteric fracture left hip and left distal radius associated with osteopenia. Complications: None - Other Other Information/Narrative: After satisfactory spinal anesthesia was achieved, the patient was transferred to the [place] fracture table in the supine position. Boot traction was applied to the left foot and well-leg celis to the nonoperative right leg. Traction was applied to the left leg through the boot with the patella facing superiorly and the hip in a neutral position with regard to abduction and adduction and hip flexion/extension. The C-arm was used to assess the reduction and showed excellent alignment on both AP and lateral views. The left hip was then prepped and draped in a sterile manner in the usual fashion using a vertical [place] transparent barrier. A 4 to 5 cm incision was made in line with the greater trochanter but proximal to the greater trochanter. The subcutaneous tissue and fascia were split. A starting bone all was used to engage the trochanteric fossa at its most lateral edge. The starting awl was impacted to lesser trochanter and a guidepin was then inserted. The position of the guidepin was confirmed on both AP and lateral views. Reaming was then carried out with the starting reamer. The 10 mm diameter tatyana and guide was then utilized to insert the tatyana through the trochanteric area and pushed distally using C-arm image intensifier and biplanar mode. The leg screw guidepin was inserted through a separate incision more distal. This was inserted in the proximate midline in mansi th AP and lateral C arm images. The depth of the guidepin was 100 mm. The compression screw drills were then utilized both short and long. The antirotation bar was inserted. The lag screw reamer was then utilized and placed over the previously inserted pin to the appropriate depth. The 95 mm lag screw was inserted and the 90 compression screw followed achieving nice compression at the fracture site. The alignment of the fracture was very good on both AP and lateral views as well as the fixation. A third incision was made for the distal locking screw. Bicortical fixation was achieved with a 30 mm cortical screw. The wounds were irrigated. The subcutaneous tissue was closed with 2-0 Vicryl and the skin was closed with 3-0 Monocryl, Dermabond and dry sterile dressings. There is no deformity to the leg. The patient tolerated the procedure well. She did receive 2 g of Ancef prior to the incision.The fracture left distal radius was treated with closed reduction. This was achie dorothy with longitudinal traction and direct manipulation of the left distal radius. The C arm image intensifier showed satisfactory alignment and improved alignment of the left distal radius. A short arm fiberglass cast was applied, molded with the wrist placed in neutral position in slight ulnar deviation. The ring over the ring finger was cut and removed since it cannot be removed and is a potential source of constriction to the finger. There is no vascular compromise noted to the ring finger. But the ring was removed as a precaution. She tolerated this part of the procedure well and a timeout procedure was performed prior to doing the close reduction of the left distal radius.
[2020-12-02] MEDS ORDERED: ACETAMINOPHEN 1,000 MG/100 ML 100 ML IV ONE ×2 (16:03→16:06)
[2020-12-02] MEDS ORDERED: KETOROLAC 30 MG/ML VIAL IVP ONE (16:04)
[2020-12-02] MEDS ORDERED: KETOROLAC 15 MG/ML VIAL ONE (16:06)
--- NOTE | 2020-12-02 16:15 | OPERATIVE REPORT ---
Operative Report - General Admit Date: 11/30/20 - Other Other Information/Narrative: delete this document
[2020-12-02] MEDS ORDERED: ceFAZolin 1 GM VIAL IVP STA ×2 (16:30)
[2020-12-02] MEDS: ONDANSETRON 4 MG/2 ML VIAL IVP PRN (16:49)
[2020-12-02] MEDS ORDERED: ceFAZolin 2 GM/50 ML 2 GM/50 ML BAG IV SCH (17:00)
--- NOTE | 2020-12-02 17:17 | XRAY Report ---
PROCEDURE: OR C-Arm Procedure INDICATIONS: fx left hip and wrist TECHNIQUE: 3 intraoperative fluoroscopic images of left hip were obtained. COMPARISON: 11/30/2020. FINDINGS: Intraoperative fluoroscopic images of left hip shows internal fixation of patient's known left intert rochanteric femoral fracture with intramedullary tatyana and fixation screws in place. Left hip alignment is anatomic. Total fluoroscopy time is 36 seconds. IMPRESSION: Fluoroscopy guidance was provided intraoperatively for left hip ORIF. Reviewed by: Titus Ortiz MD on 12/02/2020 5:16 PM PDT Approved by: Titus Ortiz MD on 12/02/2020 5:16 PM PDT Station ID: [id number]
--- NOTE | 2020-12-02 17:18 | XRAY Report ---
PROCEDURE: OR C-Arm Procedure INDICATIONS: WRIST ORIF TECHNIQUE: 2 intraoperative fluoroscopic images of left wrist COMPARISON: Wrist radiograph dated 11/30/2020. FINDINGS: Intraoperative fluoroscopic images shows reduction of previously noted impacted distal radial fractur e with anatomic wrist alignment. Total fluoroscopy time is 5 seconds. IMPRESSION: Fluoroscopy guidance was provided intraoperatively for reduction of previously noted impacted distal radial fracture. Reviewed by: Titus Ortiz MD on 12/02/2020 5:17 PM PDT Approved by: Titus Ortiz MD on 12/02/2020 5:17 PM PDT Station ID: [id number]
[2020-12-02] MEDS: HYDROmorphone 1 MG/ML CARPUJECT IVP PRN (18:16)
[2020-12-02 19:04] LABS: HCT - HEMATOCRIT 24.5 % (37.0-47.0)
[2020-12-02] MEDS: PROCHLORPERAZINE 10 MG/2 ML VIAL IVP PRN (19:15)
[2020-12-02] MEDS: ceFAZolin 2 GM/50 ML 2 GM/50 ML BAG IV SCH (20:19)
[2020-12-02] MEDS: ATORVASTATIN 40 MG TABLET PO SCH (20:19)
[2020-12-03] MEDS: oxyCODONE 5 MG TABLET PO PRN ×4 (01:57→15:54)
[2020-12-03] MEDS: ACETAMINOPHEN 325 MG TABLET PO PRN ×5 (01:58→20:03)
[2020-12-03] MEDS: SODIUM CHLORIDE FLUSH 0.9% 10 ML SYRINGE IVP SCH ×4 (02:02→23:25)
[2020-12-03] MEDS: ceFAZolin 2 GM/50 ML 2 GM/50 ML BAG IV SCH (04:15)
[2020-12-03 06:49] LABS: BASOPHILS % (AUTO) 0.4 %; EOSINOPHILS # (AUTO) 0.2 10^3/uL (0.0-0.7); EOSINOPHILS % (AUTO) 2.2 %; HCT - HEMATOCRIT 22.3 % (37.0-47.0); HGB - HEMOGLOBIN 7.3 g/dL (12.0-16.0); LYMPHOCYTES # (AUTO) 1.4 10^3/uL (1.5-3.5); LYMPHOCYTES % (AUTO) 20.2 %; MEAN CORPUSCULAR HGB CONC 32.7 g/dL (32.0-36.0); MEAN CORPUSCULAR VOLUME 88.5 fL (81.0-99.0); MEAN PLATELET VOLUME 9.5 fL (7.9-10.8); MONOCYTES # (AUTO) 0.5 10^3/uL (0.0-1.0); MONOCYTES % (AUTO) 7.4 %; NEUTROPHILS # (AUTO) 4.8 10^3/uL (1.5-6.6); NEUTROPHILS % (AUTO) 69.5 %; PLT - PLATELET COUNT 169 10^3/uL (130-450); RED BLOOD COUNT 2.52 10^6/uL (4.20-5.40); RED CELL DISTRIBUTION WIDTH 12.6 % (12.0-15.0); WHITE BLOOD COUNT 6.9 x10^3/uL (4.8-10.8)
[2020-12-03 06:57] LABS: CALCIUM 7.9 mg/dL (8.5-10.3); POTASSIUM 3.6 mmol/L (3.5-5.0)
[2020-12-03] MEDS: SODIUM CHLORIDE 0.9% 1,000 ML IV SCH ×2 (07:49→23:24)
[2020-12-03] MEDS: ENOXAPARIN 40 MG/0.4 ML SYRINGE SUBQ SCH (07:49)
[2020-12-03] MEDS: lisinopriL 20 MG TABLET PO SCH (08:48)
[2020-12-03] MEDS: polyethylene glycoL 3350 17 GM PACKET PO SCH (08:48)
[2020-12-03] MEDS: CALCIUM CARBONATE CHEW 500 MG TABLET PO SCH ×2 (08:49→21:19)
[2020-12-03] MEDS: CHOLECALCIFEROL 25 MCG TABLET PO SCH (08:49)
--- NOTE | 2020-12-03 13:26 | PROVIDER PROGRESS NOTE ---
Assessment/Plan - Problem List (1) Fracture of left hip Qualifiers: Encounter type: initial encounter Fracture type: closed Qualified Code(s): S72.002A - Fracture of unspecified part of neck of left femur, initial encounter for closed fracture Assessment/Plan: 12/03 day 1 after s/p left hip repair. pt is doing well, will continue PT/OT, pain control, and Lovenox for DVT prophylaxis pt will have left hip repair on today noon, will followup. continue pain control, continue PT/OT, DVT prophylaxis per surgeon (2) anemia 12/03 HGB is 7.3, some Hemodilation. Patient is status post of hip repair surgery. We will do anemia study, We will continue H&H monitor patient. Patient does not show acute anemia symptoms (3) Hypertension stable. continue Vital signs monitor (4) Distal radius fracture, left stable. This is secondary to the fall. A splint was placed in the emergency department. Pain control with oxycodone and HydroMorphine as needed. Appreciate orthopedic surgery input. (5) Cardiac murmur ECHO reveals normal EF with mild aortic stenosis. EKG reveals Sinus rhythm. (6)dehydration 12/03 resolved. we will keep IVF at 75cc/h, lab monitor pt has slight elevated creatinine and dehydration, order IVF 125cc/h, lab monitor - Current Meds Current Meds: Current Medications Generic Name Dose Route Start Last Admin Trade Name Freq PRN Reason Stop Dose Admin Acetaminophen 650 mg 11/30/20 23:58 12/03/20 11:10 Acetaminophen 325 Mg Tablet PO 650 mg Q4HR PRN Administration Pain 1 to 4 Atorvastatin Calcium 40 mg 12/01/20 21:00 12/02/20 20:19 Atorvastatin 40 Mg Tablet PO 40 mg QPM NITO Administration Calcium Carbonate/Glycine 500 mg 12/03/20 09:00 12/03/20 08:49 Calcium Carbonate Chew 500 Mg Tablet PO 500 mg BID NITO Administration Cholecalciferol 50 mcg 12/03/20 09:00 12/03/20 08:49 Cholecalciferol 25 Mcg Tablet PO 50 mcg DAILY NITO Administration Enoxaparin Sodium 40 mg 12/01/20 09:02 12/03/20 07:49 Enoxaparin 40 Mg/0.4 Ml Syringe SUBQ 40 mg DAILY NITO Administration Hydromorphone HCl 1 mg 12/01/20 09:53 12/02/20 18:16 Hydromorphone 1 Mg/Ml Carpuject IVP 1 mg Q2HR PRN Administration PAIN Sodium Chloride 1,000 mls @ 75 mls/hr 12/03/20 08:00 12/03/20 07:49 Normal Saline 0.9% IV 12/04/20 10:39 75 mls/hr .[id number] NITO Administration Lisinopril 20 mg 12/03/20 09:00 12/03/20 08:48 Lisinopril 20 Mg Tablet PO 20 mg DAILY NITO Administration Ondansetron HCl 4 mg 11/30/20 23:58 12/02/20 16:49 Ondansetron 4 Mg/2 Ml Vial IVP 4 mg Q6HR PRN Administration Nausea / Vomiting Ondansetron HCl 4 mg 11/30/20 23:58 12/02/20 12:49 Ondansetron Odt 4 Mg Tablet TL 4 mg Q6HR PRN Administration Nausea / Vomiting Oxycodone HCl 5 mg 11/30/20 23:58 12/03/20 11:11 Oxycodone 5 Mg Tablet PO 5 mg Q4HR PRN Administration Pain 5 to 7 Polyethylene Glycol 17 gm 12/03/20 09:00 12/03/20 08:48 Polyethylene Glycol 3350 17 Gm Packet PO 17 gm DAILY NITO Administration Prochlorperazine Edisylate 10 mg 12/01/20 08:56 12/02/20 19:15 Prochlorperazine 10 Mg/2 Ml Vial IVP 10 mg Q6HR PRN Administration Nausea / Vomiting Sodium Chloride 10 ml 12/01/20 01:00 12/03/20 07:50 Sodium Chloride Flush 0.9% 10 Ml Syringe IVP 10 ml 0100,0900,1700 NITO Administration - Lab Result Fish Bone Diagrams: 12/03/20 06:43 12/03/20 06:43 - Additional Planning My Orders: My Active Orders 12/02/20 Dinner Regular Diet [DIET] 12/03/20 08:00 Sodium Chloride 0.9% [Normal Saline 0.9%] 1,000 ml IV 75 mls/hr 12/03/20 09:00 Calcium Carbonate [Tums] 500 mg PO BID Cholecalciferol [Vitamin D3] 50 mcg PO DAILY lisinopriL [Zestril] 20 mg PO DAILY 12/03/20 14:00 H&H [HEMOGLOBIN AND HEMATOCRIT] [HEME] Timed 12/03/20 22:00 H&H [HEMOGLOBIN AND HEMATOCRIT] [HEME] Timed Subjective - Subjective Patient Reports: Feeling Better Objective Vital Signs: Vital Signs - 24 hr 12/02/20 12/02/20 12/02/20 15:42 15:48 15:51 Temperature 37.3 C Heart Rate 73 73 72 Heart Rate [ Brachial] Respiratory 14 13 12 Rate Blood Pressure 143/74 H 111/92 H 105/85 H Blood Pressure [Right Brachial artery] O2 Saturation 97 100 100 12/02/20 12/02/20 12/02/20 15:56 16:01 16:11 Temperature 37.2 C Heart Rate 77 76 74 Heart Rate [ Brachial] Respiratory 14 13 12 Rate Blood Pressure 108/85 H 124/90 H 140/68 H Blood Pressure [Right Brachial artery] O2 Saturation 100 100 97 12/02/20 12/02/20 12/02/20 16:16 16:21 16:31 Temperature 37.6 C Heart Rate 74 70 84 Heart Rate [ Brachial] Respiratory 11 L 13 13 Rate Blood Pressure 145/72 H 159/70 H 154/64 H Blood Pressure [Right Brachial artery] O2 Saturation 97 98 98 12/02/20 12/02/20 12/02/20 16:45 17:01 17:15 Temperature 37.5 C 36.9 C 37.4 C Heart Rate Heart Rate [ 100 80 76 Brachial] Respiratory 16 18 16 Rate Blood Pressure Blood Pressure 170/66 H 159/70 H 170/70 H [Right Brachial artery] O2 Saturation 98 100 99 12/02/20 12/02/20 12/02/20 17:30 18:00 18:30 Temperature 37.4 C 36.8 C 36.8 C Heart Rate Heart Rate [ 81 71 76 Brachial] Respiratory 16 20 16 Rate Blood Pressure Blood Pressure 163/77 H 153/50 H 171/66 H [Right Brachial artery] O2 Saturation 100 97 98 12/02/20 12/02/20 12/03/20 19:28 20:30 01:46 Temperature 36.6 C 36.9 C 37.1 C Heart Rate Heart Rate [ 82 97 86 Brachial] Respiratory 16 16 16 Rate Blood Pressure Blood Pressure 165/74 H 154/53 H 164/61 H [Right Brachial artery] O2 Saturation 98 99 99 12/03/20 12/03/20 05:22 07:26 Temperature 37.3 C 37.0 C Heart Rate Heart Rate [ 74 77 Brachial] Respiratory 16 16 Rate Blood Pressure Blood Pressure 148/62 H 148/60 H [Right Brachial artery] O2 Saturation 97 98 Oxygen O2 Source Room air I&O (Last 24 Hrs): Intake and Output Totals x24h 12/01/20 12/02/20 12/03/20 23:59 23:59 23:59 Intake Total 1432.96 5783.260 3616.667 Output Total 80 175 575 Balance 1352.96 1573.813 626.667 General: Alert, Oriented x3, Cooperative, No acute distress HEENT: Atraumatic, PERRLA Neck: Supple Lymphatic: no adenopathy Neuro: Alert, Non Focal, Oriented Times 3 Cardiovascular: Regular rate, Normal S1, Normal S2 Respiratory: Chest non-tender, No respiratory distress Abdomen: Normal bowel sounds, Soft, No tenderness Extremities: Normal pulses, Other (Normal distal neurological and vascular exam.) - Results Results: Laboratory Results WBC 6.9 x10^3/uL (4.8-10.8) 12/03/20 06:43 RBC 2.52 10^6/uL (4.20-5.40) L 12/03/20 06:43 Hgb 7.3 g/dL (12.0-16.0) L 12/03/20 06:43 Hct 22.3 % (37.0-47.0) L 12/03/20 06:43 MCV 88.5 fL (81.0-99.0) 12/03/20 06:43 MCH 29.0 pg (27.0-31.0) 12/03/20 06:43 MCHC 32.7 g/dL (32.0-36.0) 12/03/20 06:43 RDW 12.6 % (12.0-15.0) 12/03/20 06:43 Plt Count 169 10^3/uL (130-450) 12/03/20 06:43 MPV 9.5 fL (7.9-10.8) 12/03/20 06:43 Reticulocyte % (Auto) 1.32 % (0.5-2.3) 12/01/20 04:50 Neut # (Auto) 4.8 10^3/uL (1.5-6.6) 12/03/20 06:43 Lymph # (Auto) 1.4 10^3/uL (1.5-3.5) L 12/03/20 06:43 [place] # (Auto) 0.5 10^3/uL (0.0-1.0) 12/03/20 06:43 Eos # (Auto) 0.2 10^3/uL (0.0-0.7) 12/03/20 06:43 Baso # (Auto) 0.0 10^3/uL (0.0-0.1) 12/03/20 06:43 Absolute Nucleated RBC 0.00 x10^3/uL 12/03/20 06:43 Nucleated RBC % 0.0 /100WBC 12/03/20 06:43 Absolute Retic 0.048 10^6/uL (0.020-0.110) 12/01/20 04:50 Sodium 132 mmol/L (135-145) L 12/03/20 06:43 Potassium 3.6 mmol/L (3.5-5.0) 12/03/20 06:43 Chloride 99 mmol/L (101-111) L 12/03/20 06:43 Carbon Dioxide 25 mmol/L (21-32) 12/03/20 06:43 Anion Gap 8.0 (6-13) 12/03/20 06:43 BUN 23 mg/dL (6-20) H 12/03/20 06:43 Creatinine 1.0 mg/dL (0.4-1.0) 12/03/20 06:43 Estimated GFR (MDRD) 54 (>89) L 12/03/20 06:43 Glucose 120 mg/dL (70-100) H 12/03/20 06:43 Calcium 7.9 mg/dL (8.5-10.3) L 12/03/20 06:43 Magnesium 2.0 mg/dL (1.7-2.8) 12/03/20 06:43 Iron 31 ug/dL (28-170) 12/01/20 04:50 TIBC 311 ug/dL (250-450) 12/01/20 04:50 % Saturation 10 % (20-50) L 12/01/20 04:50 Transferrin 222 mg/dL (192-382) 12/01/20 04:50 Ferritin 105.6 ng/mL (11.0-306.8) 12/01/20 04:50 Lactate Dehydrogenase 146 IU/L (91-225) 12/01/20 04:50 Vitamin B12 2231 pg/mL (180-914) H 12/01/20 04:50 Nasal Adenovirus (PCR) NOT DETECTED 12/01/20 00:35 Nasal B. parapertussis DNA (PCR) NOT DETECTED 12/01/20 00:35 Nasal Coronavir 229E PCR NOT DETECTED 12/01/20 00:35 Nasal Coronavir HKU1 PCR NOT DETECTED 12/01/20 00:35 Nasal Coronavir NL63 PCR NOT DETECTED 12/01/20 00:35 Nasal Coronavir OC43 PCR NOT DETECTED 12/01/20 00:35 Nasal Enterovir/Rhinovir PCR DETECTED A 12/01/20 00:35 Nasal Influenza B PCR NOT DETECTED 12/01/20 00:35 Nasal Influenza A PCR NOT DETECTED 12/01/20 00:35 Nasal Parainfluen 1 PCR NOT DETECTED 12/01/20 00:35 Nasal Parainfluen 2 PCR NOT DETECTED 12/01/20 00:35 Nasal Parainfluen 3 PCR NOT DETECTED 12/01/20 00:35 Nasal Parainfluen 4 PCR NOT DETECTED 12/01/20 00:35 Nasal RSV (PCR) NOT DETECTED 12/01/20 00:35 Nasal B.pertussis DNA PCR NOT DETECTED 12/01/20 00:35 Nasal C.pneumoniae (PCR) NOT DETECTED 12/01/20 00:35 Alex Human Metapneumo PCR NOT DETECTED 12/01/20 00:35 Nasal M.pneumoniae (PCR) NOT DETECTED 12/01/20 00:35 Nasal SARS-CoV-2 (PCR) NOT DETECTED 12/01/20 00:35 ABX Reporting Has patient been on IV antibiotics over the past 48 hours?: No Current Medications - Current Medications Current Medications: Active Medications Acetaminophen (Acetaminophen 325 Mg Tablet) 650 mg PO Q4HR PRN PRN Reason: Pain 1 to 4 Last Admin: 12/03/20 11:10 Dose: 650 mg Documented by: Atorvastatin Calcium (Atorvastatin 40 Mg Tablet) 40 mg PO QPM NITO Last Admin: 12/02/20 20:19 Dose: 40 mg Documented by: Calcium Carbonate/Glycine (Calcium Carbonate Chew 500 Mg Tablet) 500 mg PO BID [facility] Last Admin: 12/03/20 08:49 Dose: 500 mg Documented by: Cholecalciferol (Cholecalciferol 25 Mcg Tablet) 50 mcg PO DAILY [facility] Last Admin: 12/03/20 08:49 Dose: 50 mcg Documented by: Enoxaparin Sodium (Enoxaparin 40 Mg/0.4 Ml Syringe) 40 mg SUBQ DAILY [facility] Last Admin: 12/03/20 07:49 Dose: 40 mg Documented by: Hydralazine HCl (Hydralazine Inj 20 Mg/Ml Vial) 10 mg IVP QID PRN PRN Reason: Hypertensive Emergency Hydromorphone HCl (Hydromorphone 1 Mg/Ml Carpuject) 1 mg IVP Q2HR PRN PRN Reason: PAIN Last Admin: 12/02/20 18:16 Dose: 1 mg Documented by: Sodium Chloride (Normal Saline 0.9%) 1,000 mls @ 75 mls/hr IV .[id number] [facility] Stop: 12/04/20 10:39 Last Admin: 12/03/20 07:49 Dose: 75 mls/hr Documented by: Lisinopril (Lisinopril 20 Mg Tablet) 20 mg PO DAILY [facility] Last Admin: 12/03/20 08:48 Dose: 20 mg Documented by: Ondansetron HCl (Ondansetron 4 Mg/2 Ml Vial) 4 mg IVP Q6HR PRN PRN Reason: Nausea / Vomiting Last Admin: 12/02/20 16:49 Dose: 4 mg Documented by: Ondansetron HCl (Ondansetron Odt 4 Mg Tablet) 4 mg TL Q6HR PRN PRN Reason: Nausea / Vomiting Last Admin: 12/02/20 12:49 Dose: 4 mg Documented by: Oxycodone HCl (Oxycodone 5 Mg Tablet) 5 mg PO Q4HR PRN PRN Reason: Pain 5 to 7 Last Admin: 12/03/20 11:11 Dose: 5 mg Documented by: Polyethylene Glycol (Polyethylene Glycol 3350 17 Gm Packet) 17 gm PO DAILY [facility] Last Admin: 12/03/20 08:48 Dose: 17 gm Documented by: Prochlorperazine Edisylate (Prochlorperazine 10 Mg/2 Ml Vial) 10 mg IVP Q6HR PRN PRN Reason: Nausea / Vomiting Last Admin: 12/02/20 19:15 Dose: 10 mg Documented by: Sodium Chloride (Sodium Chloride Flush 0.9% 10 Ml Syringe) 10 ml IVP PRN PRN PRN Reason: NEEDED PER PROVIDER ORDERS Sodium Chloride (Sodium Chloride Flush 0.9% 10 Ml Syringe) 10 ml IVP 0100,0900,1700 NITO Last Admin: 12/03/20 07:50 Dose: 10 ml Documented by: Zolpidem Tartrate (Zolpidem 5 Mg Tablet) 5 mg PO QPM PRN PRN Reason: Insomnia Benazepril HCl [Lotensin] 20 mg PO DAILY 12/01/20 Rosuvastatin Calcium [Crestor] 20 mg PO QPM 12/01/20 Zolpidem Tartrate [Ambien Cr] 6.25 mg PO QPM PRN 12/01/20
--- NOTE | 2020-12-03 13:37 | PROVIDER PROGRESS NOTE ---
Subjective - General Admit Date: 11/30/20 Procedure Date: 12/02/20 Post Op Days: 1 Procedure Performed: Status post open reduction internal fixation intertrochanteric fracture lef - Review of Systems Wound/Incisions: positive: Dressing dry and intact General: positive: No symptoms Pulmonary: positive: No symptoms Cardiovascular: positive: No symptoms Musculoskeletal: negative: Other (Pain is controlled to extremities) Psychiatric: positive: No symptoms All Other Systems: positive: Reviewed and negative Objective - Patient Data Vital Signs: Vital Signs x48h Temp Pulse Pulse Pulse Pulse Pulse Resp 12/03/20 12:00 83 85 92 83 12/03/20 07:26 37.0 C 77 16 BP BP BP BP BP Pulse Ox 12/03/20 12:00 121/48 L 130/68 120/69 170/72 H 12/03/20 07:26 148/60 H 98 Weight: Weight 12/01/20 12/02/20 12/03/20 23:59 23:59 23:59 Weight (kg) 58.967 kg 58.967 kg Intake & Output: Intake and Output Totals x24h 12/01/20 12/02/20 12/03/20 23:59 23:59 23:59 Intake Total 1432.96 4299.659 8630.667 Output Total 80 175 575 Balance 1352.96 8522.482 0555.667 - Lab Results Lab Results: 12/03/20 06:43 12/03/20 06:43 Other Lab Results: Lab Results x24hrs 12/03/20 12/03/20 12/02/20 Range/Units 06:43 06:43 19:00 WBC 6.9 (4.8-10.8) x10^3/uL RBC 2.52 L (4.20-5.40) 10^6/uL Hgb 7.3 L 8.0 L (12.0-16.0) g/dL Hct 22.3 L 24.5 L (37.0-47.0) % MCV 88.5 (81.0-99.0) fL MCH 29.0 (27.0-31.0) pg MCHC 32.7 (32.0-36.0) g/dL RDW 12.6 (12.0-15.0) % Plt Count 169 (130-450) 10^3/uL MPV 9.5 (7.9-10.8) fL Neut # (Auto) 4.8 (1.5-6.6) 10^3/uL Lymph # (Auto) 1.4 L (1.5-3.5) 10^3/uL [place] # (Auto) 0.5 (0.0-1.0) 10^3/uL Eos # (Auto) 0.2 (0.0-0.7) 10^3/uL Baso # (Auto) 0.0 (0.0-0.1) 10^3/uL Absolute Nucleated RBC 0.00 x10^3/uL Nucleated RBC % 0.0 /100WBC Sodium 132 L (135-145) mmol/L Potassium 3.6 (3.5-5.0) mmol/L Chloride 99 L (101-111) mmol/L Carbon Dioxide 25 (21-32) mmol/L Anion Gap 8.0 (6-13) BUN 23 H (6-20) mg/dL Creatinine 1.0 (0.4-1.0) mg/dL Estimated GFR (MDRD) 54 L (>89) Glucose 120 H (70-100) mg/dL Calcium 7.9 L (8.5-10.3) mg/dL Magnesium 2.0 (1.7-2.8) mg/dL - Current Medications Current Medications: Current Medications Generic Name Dose Route Start Last Admin Trade Name Freq PRN Reason Stop Dose Admin Acetaminophen 650 mg 11/30/20 23:58 12/03/20 11:10 Acetaminophen 325 Mg Tablet PO 650 mg Q4HR PRN Administration Pain 1 to 4 Atorvastatin Calcium 40 mg 12/01/20 21:00 12/02/20 20:19 Atorvastatin 40 Mg Tablet PO 40 mg QPM NITO Administration Calcium Carbonate/Glycine 500 mg 12/03/20 09:00 12/03/20 08:49 Calcium Carbonate Chew 500 Mg Tablet PO 500 mg BID NITO Administration Cholecalciferol 50 mcg 12/03/20 09:00 12/03/20 08:49 Cholecalciferol 25 Mcg Tablet PO 50 mcg DAILY NITO Administration Enoxaparin Sodium 40 mg 12/01/20 09:02 12/03/20 07:49 Enoxaparin 40 Mg/0.4 Ml Syringe SUBQ 40 mg DAILY NITO Administration Hydromorphone HCl 1 mg 12/01/20 09:53 12/02/20 18:16 Hydromorphone 1 Mg/Ml Carpuject IVP 1 mg Q2HR PRN Administration PAIN Sodium Chloride 1,000 mls @ 75 mls/hr 12/03/20 08:00 12/03/20 07:49 Normal Saline 0.9% IV 12/04/20 10:39 75 mls/hr .[id number] NITO Administration Lisinopril 20 mg 12/03/20 09:00 12/03/20 08:48 Lisinopril 20 Mg Tablet PO 20 mg DAILY NITO Administration Ondansetron HCl 4 mg 11/30/20 23:58 12/02/20 16:49 Ondansetron 4 Mg/2 Ml Vial IVP 4 mg Q6HR PRN Administration Nausea / Vomiting Ondansetron HCl 4 mg 11/30/20 23:58 12/02/20 12:49 Ondansetron Odt 4 Mg Tablet TL 4 mg Q6HR PRN Administration Nausea / Vomiting Oxycodone HCl 5 mg 11/30/20 23:58 12/03/20 11:11 Oxycodone 5 Mg Tablet PO 5 mg Q4HR PRN Administration Pain 5 to 7 Polyethylene Glycol 17 gm 12/03/20 09:00 12/03/20 08:48 Polyethylene Glycol 3350 17 Gm Packet PO 17 gm DAILY NITO Administration Prochlorperazine Edisylate 10 mg 12/01/20 08:56 12/02/20 19:15 Prochlorperazine 10 Mg/2 Ml Vial IVP 10 mg Q6HR PRN Administration Nausea / Vomiting Sodium Chloride 10 ml 12/01/20 01:00 12/03/20 07:50 Sodium Chloride Flush 0.9% 10 Ml Syringe IVP 10 ml 0100,0900,1700 NITO Administration - Physical Exam Wound/Incisions: positive: Dressing dry and intact General Appearance: positive: No acute distress Neurologic/Psychiatric: positive: Oriented x3 Comments/Other: Patient is sitting up, doing well. She has had physical therapy. Her pain is well controlled. Her cast is fitting well. Color, motion sensation intact to fingers left hand. Incisions clean and dry, dressings intact left hip. There is no deformity to left leg. Neurovascular is intact to both left upper and left lower extremity. There is no sign of hematoma about the left thigh. Impression/Plan - Problem List Problem List: Status post open reduction internal fixation intertrochanteric fracture left hip: Continue physical and occupational therapy, use of walker, weightbearing as tolerated left leg. She may need a platform for her left forearm. Status post closed reduction left distal radius and application of short arm cast. She is doing well. She needs to continue with elevation of left hand and active range of motion of fingers to prevent stiffness of fingers. I like to recheck her in approximately 1 month in the orthopedic clinic
[2020-12-03 15:29] LABS: ABSOLUTE RETICS # AUTO 0.062 10^6/uL (0.020-0.110); RED BLOOD COUNT 2.37 10^6/uL (4.20-5.40); RETICULOCYTE COUNT % (AUTO) 2.62 % (0.5-2.3)
[2020-12-03 15:30] LABS: HCT - HEMATOCRIT 20.7 % (37.0-47.0)
[2020-12-03 15:32] LABS: HGB - HEMOGLOBIN 6.9 g/dL (12.0-16.0)
[2020-12-03 15:48] LABS: % IRON SATURATION 11 % (20-50); IRON 20 ug/dL (28-170); TOTAL IRON BINDING CAPACITY 189 ug/dL (250-450); TRANSFERRIN 135 mg/dL (192-382)
[2020-12-03] MEDS: FERROUS GLUCONATE 324 MG TABLET PO SCH (15:54)
[2020-12-03 16:05] LABS: FERRITIN 170.1 ng/mL (11.0-306.8)
[2020-12-03] MEDS: ONDANSETRON ODT 4 MG TABLET TL PRN (19:13)
[2020-12-03 21:09] LABS: BILIRUBIN,URINE NEGATIVE (NEGATIVE); GLUCOSE, URINE (UA) NEGATIVE (NEGATIVE); KETONES,URINE (UA) NEGATIVE (NEGATIVE); LEUKOCYTE ESTERASE, URINE NEGATIVE (NEGATIVE); NITRITE,URINE NEGATIVE (NEGATIVE); OCCULT BLOOD,URINE NEGATIVE (NEGATIVE); PROTEIN,URINE NEGATIVE (NEGATIVE); UROBILINOGEN,URINE 0.2 (NORMAL) E.U./dL (NORMAL)
[2020-12-03 21:19] LABS: BACTERIA,URINE Rare /HPF (None Seen); CLARITY,URINE CLEAR (CLEAR); RBC,URINE 0-5 /HPF (0-5); SQUAMOUS EPITHELIAL CELL,UR FEW Squamous (<= Few); WBC,URINE 0-3 /HPF (0-5)
[2020-12-03] MEDS: ATORVASTATIN 40 MG TABLET PO SCH (21:19)
[2020-12-03 21:53] LABS: HCT - HEMATOCRIT 22.7 % (37.0-47.0); HGB - HEMOGLOBIN 7.6 g/dL (12.0-16.0)
[2020-12-04] MEDS: oxyCODONE 5 MG TABLET PO PRN ×6 (00:21→21:24)
[2020-12-04] MEDS: ACETAMINOPHEN 325 MG TABLET PO PRN ×5 (00:21→21:23)
[2020-12-04] MEDS: polyethylene glycoL 3350 17 GM PACKET PO SCH (08:38)
[2020-12-04] MEDS: hydrALAZINE INJ 20 MG/ML VIAL IVP PRN (08:42)
[2020-12-04] MEDS: FERROUS GLUCONATE 324 MG TABLET PO SCH (08:44)
[2020-12-04] MEDS: CHOLECALCIFEROL 25 MCG TABLET PO SCH (08:44)
[2020-12-04] MEDS: lisinopriL 20 MG TABLET PO SCH (08:45)
[2020-12-04] MEDS: ENOXAPARIN 40 MG/0.4 ML SYRINGE SUBQ SCH (08:46)
[2020-12-04] MEDS: CALCIUM CARBONATE CHEW 500 MG TABLET PO SCH ×2 (08:46→21:23)
[2020-12-04] MEDS: SODIUM CHLORIDE FLUSH 0.9% 10 ML SYRINGE IVP SCH ×2 (11:22→17:17)
--- NOTE | 2020-12-04 14:05 | PROVIDER PROGRESS NOTE ---
Subjective - Prog Note Date Prog Note Date: 12/04/20 Prog Note Time: 14:09 - Subjective Pt reports feeling: Improved Subjective: tired. not much energy. denies cp, sob, and pain is controlled. Physical therapy try to get her up to work with her and she passed out. Such they brought her back to bed and physical therapy would like to delay therapy until tomorrow. She started out with a systolic of 1 72-1 80. Her blood pressure has been stable but they did not do orthostatics on her. I will have asked the aide or nursing to document some vital signs since 830 this morning. Current Medications - Current Medications Current Medications: Active Medications Acetaminophen (Acetaminophen 325 Mg Tablet) 650 mg PO Q4HR PRN PRN Reason: Pain 1 to 4 Last Admin: 12/04/20 12:55 Dose: 650 mg Documented by: Atorvastatin Calcium (Atorvastatin 40 Mg Tablet) 40 mg PO QPM [facility] Last Admin: 12/03/20 21:19 Dose: 40 mg Documented by: Calcium Carbonate/Glycine (Calcium Carbonate Chew 500 Mg Tablet) 500 mg PO BID [facility] Last Admin: 12/04/20 08:46 Dose: 500 mg Documented by: Cholecalciferol (Cholecalciferol 25 Mcg Tablet) 50 mcg PO DAILY [facility] Last Admin: 12/04/20 08:44 Dose: 50 mcg Documented by: Enoxaparin Sodium (Enoxaparin 40 Mg/0.4 Ml Syringe) 40 mg SUBQ DAILY [facility] Last Admin: 12/04/20 08:46 Dose: 40 mg Documented by: Ferrous Gluconate (Ferrous Gluconate 324 Mg Tablet) 324 mg PO DAILYWM [facility] Last Admin: 12/04/20 08:44 Dose: 324 mg Documented by: Hydralazine HCl (Hydralazine Inj 20 Mg/Ml Vial) 10 mg IVP QID PRN PRN Reason: Hypertensive Emergency Last Admin: 12/04/20 08:42 Dose: 10 mg Documented by: Hydromorphone HCl (Hydromorphone 1 Mg/Ml Carpuject) 1 mg IVP Q2HR PRN PRN Reason: PAIN Last Admin: 12/02/20 18:16 Dose: 1 mg Documented by: Lisinopril (Lisinopril 20 Mg Tablet) 20 mg PO DAILY [facility] Last Admin: 12/04/20 08:45 Dose: 20 mg Documented by: Ondansetron HCl (Ondansetron 4 Mg/2 Ml Vial) 4 mg IVP Q6HR PRN PRN Reason: Nausea / Vomiting Last Admin: 12/02/20 16:49 Dose: 4 mg Documented by: Ondansetron HCl (Ondansetron Odt 4 Mg Tablet) 4 mg TL Q6HR PRN PRN Reason: Nausea / Vomiting Last Admin: 12/03/20 19:13 Dose: 4 mg Documented by: Oxycodone HCl (Oxycodone 5 Mg Tablet) 5 mg PO Q4HR PRN PRN Reason: Pain 5 to 7 Last Admin: 12/04/20 12:55 Dose: 5 mg Documented by: Polyethylene Glycol (Polyethylene Glycol 3350 17 Gm Packet) 17 gm PO DAILY [facility] Last Admin: 12/04/20 08:38 Dose: 17 gm Documented by: Prochlorperazine Edisylate (Prochlorperazine 10 Mg/2 Ml Vial) 10 mg IVP Q6HR PRN PRN Reason: Nausea / Vomiting Last Admin: 12/02/20 19:15 Dose: 10 mg Documented by: Sodium Chloride (Sodium Chloride Flush 0.9% 10 Ml Syringe) 10 ml IVP PRN PRN PRN Reason: NEEDED PER PROVIDER ORDERS Sodium Chloride (Sodium Chloride Flush 0.9% 10 Ml Syringe) 10 ml IVP 0 100,0900,1700 [facility] Last Admin: 12/04/20 11:22 Dose: Not Given Documented by: Zolpidem Tartrate (Zolpidem 5 Mg Tablet) 5 mg PO QPM PRN PRN Reason: Insomnia Benazepril HCl [Lotensin] 20 mg PO DAILY 12/01/20 Rosuvastatin Calcium [Crestor] 20 mg PO QPM 12/01/20 Zolpidem Tartrate [Ambien Cr] 6.25 mg PO QPM PRN 12/01/20 Objective - Vital Signs/Intake & Output Reviewed Vital Signs: Yes Vital Signs: Vital Signs x48h Temp Pulse Resp BP BP Pulse Ox 12/04/20 09:12 143/54 H 12/04/20 08:59 89 143/54 H 12/04/20 08:54 92 151/62 H 12/04/20 08:47 86 158/66 H 12/04/20 08:42 183/71 H 12/04/20 07:39 37.0 C 72 16 183/71 H 96 Intake & Output: Intake & Output 12/01/20 12/02/20 12/03/20 12/04/20 23:59 23:59 23:59 23:59 Intake Total 1432.96 4556.976 3393.667 1800 Output Total 80 175 1175 1100 Balance 1352.96 1991.082 5504.667 700 - Objective General Appearance: positive: No acute distress, Alert, Other (pale, quiet, pleasant white female in no distress) Eyes Bilateral: positive: PERRL, EOMI ENT: positive: No signs of dehydration Neck: positive: No JVD. negative: Stiff neck Respiratory: positive: No respiratory distress. negative: Wheezes, Rales, Rhonchi Cardiovascular: positive: Regular rate & rhythm, Systolic murmur. negative: Gallop/S4, Friction rub Abdomen: positive: Non-tender, No organomegaly, Nml bowel sounds, No distention Skin: positive: Warm, Dry, Pallor Extremities: positive: Full ROM, Pedal edema Neurologic/Psychiatric: positive: Oriented x3, CN's nml (2-12), Motor nml, Sensation nml - Lab Results Fish Bones: 12/03/20 20:43 12/03/20 06:43 Other Labs: Lab Results x24hrs 12/03/20 12/03/20 12/03/20 Range/Units 20:53 20:43 16:00 RBC (4.20-5.40) 10^6/uL Hgb 7.6 L (12.0-16.0) g/dL Hct 22.7 L (37.0-47.0) % Reticulocyte % (Auto) (0.5-2.3) % Absolute Retic (0.020-0.110) 10^6/uL Iron (28-170) ug/dL TIBC (250-450) ug/dL % Saturation (20-50) % Transferrin (192-382) mg/dL Ferritin (11.0-306.8) ng/mL Lactate Dehydrogenase (91-225) IU/L Vitamin B12 (180-914) pg/mL Urine Color YELLOW Urine Clarity CLEAR (CLEAR) Urine pH 6.0 (5.0-7.5) PH Ur Specific [place] 1.020 (1.002-1.030) Urine Protein NEGATIVE (NEGATIVE) mg/dL Urine Glucose (UA) NEGATIVE (NEGATIVE) mg/dL Urine Ketones NEGATIVE (NEGATIVE) mg/dL Urine Occult Blood NEGATIVE (NEGATIVE) Urine Nitrite NEGATIVE (NEGATIVE) Urine Bilirubin NEGATIVE (NEGATIVE) Urine Urobilinogen 0.2 (NORMAL) (NORMAL) E.U./dL Ur Leukocyte Esterase NEGATIVE (NEGATIVE) Urine RBC 0-5 (0-5) /HPF Urine WBC 0-3 (0-5) /HPF Ur Squamous Epith Cells FEW Squamous (<= Few) Urine Bacteria Rare (None Seen) /HPF Blood Type A POSITIVE Blood Type Recheck Antibody Screen NEGATIVE Crossmatch IS Only See Detail 12/03/20 12/03/20 12/03/20 Range/Units 15:21 15: 15:21 RBC (4.20-5.40) 10^6/uL Hgb (12.0-16.0) g/dL Hct (37.0-47.0) % Reticulocyte % (Auto) (0.5-2.3) % Absolute Retic (0.020-0.110) 10^6/uL Iron (28-170) ug/dL TIBC (250-450) ug/dL % Saturation (20-50) % Transferrin (192-382) mg/dL Ferritin 170.1 (11.0-306.8) ng/mL Lactate Dehydrogenase 109 (91-225) IU/L Vitamin B12 1363 H (180-914) pg/mL Urine Color Urine Clarity (CLEAR) Urine pH (5.0-7.5) PH Ur Specific [place] (1.002-1.030) Urine Protein (NEGATIVE) mg/dL Urine Glucose (UA) (NEGATIVE) mg/dL Urine Ketones (NEGATIVE) mg/dL Urine Occult Blood (NEGATIVE) Urine Nitrite (NEGATIVE) Urine Bilirubin (NEGATIVE) Urine Urobilinogen (NORMAL) E.U./dL Ur Leukocyte Esterase (NEGATIVE) Urine RBC (0-5) /HPF Urine WBC (0-5) /HPF Ur Squamous Epith Cells (<= Few) Urine Bacteria (None Seen) /HPF Blood Type Blood Type Recheck A POSITIVE Antibody Screen Crossmatch IS Only 12/03/20 12/03/20 12/03/20 Range/Units 15:21 15: 15:21 RBC 2.37 L (4.20-5.40) 10^6/uL Hgb 6.9 L* (12.0-16.0) g/dL Hct 20.7 L (37.0-47.0) % Reticulocyte % (Auto) 2.62 H (0.5-2.3) % Absolute Retic 0.062 (0.020-0.110) 10^6/uL Iron 20 L (28-170) ug/dL TIBC 189 L (250-450) ug/dL % Saturation 11 L (20-50) % Transferrin 135 L (192-382) mg/dL Ferritin (11.0-306.8) ng/mL Lactate Dehydrogenase (91-225) IU/L Vitamin B12 (180-914) pg/mL Urine Color Urine Clarity (CLEAR) Urine pH (5.0-7.5) PH Ur Specific [place] (1.002-1.030) Urine Protein (NEGATIVE) mg/dL Urine Glucose (UA) (NEGATIVE) mg/dL Urine Ketones (NEGATIVE) mg/dL Urine Occult Blood (NEGATIVE) Urine Nitrite (NEGATIVE) Urine Bilirubin (NEGATIVE) Urine Urobilinogen (NORMAL) E.U./dL Ur Leukocyte Esterase (NEGATIVE) Urine RBC (0-5) /HPF Urine WBC (0-5) /HPF Ur Squamous Epith Cells (<= Few) Urine Bacteria (None Seen) /HPF Blood Type Blood Type Recheck Antibody Screen Crossmatch IS Only Assessment/Plan - Problem List (1) Fracture of left hip Impression: She is postoperative day #2. She has had an episode of hypotension today. She says she just felt nauseated, everything seemed to close and on her and she felt sweaty. So I think this is vasovagal syncope due to orthostatic hypotension. She is already received 1 unit of blood. Plan: Check orthostatics Work with physical therapy tomorrow She is already choice her rehab facility. Unfortunately they do not take patients on the weekend and she would have to be discharged December 06. (2) Acute blood loss anemia She was admitted at 10.7. Drifted down after surgery and she was 6.9 yesterday morning and received 1 unit of blood. After transfusion she was 7.6. She has not allowed the lab to check her blood today. This is even after the episode of syncope. I explained to her that I need to check to see if her anemia is the reason she passed out. I would like to give her another unit of blood if that would help her not pass out. Iron 20, TIBC 189, percent saturation 11, transferrin 135. 10 is 170. LDH 109. B12 1363. Reticulocyte count is 2.62 with absolute reticulocyte count 0.062. Already started on ferrous gluconate. We will add vitamin C 500 mg a day with the iron. (3) Hypertension stable. continue Vital signs monitor. Orthostatics. Blood pressures actually on the high side. But when she stands up she must drop. (4) Distal radius fracture, left stable. This is secondary to the fall. A splint was placed in the emergency department. Pain control with oxycodone and HydroMorphine as needed. Appreciate orthopedic surgery input. She will need a platform walker. This will allow her to rest her wrist on a walker to stabilize her from both her arm and her leg. (5) Cardiac murmur ECHO reveals normal EF with mild aortic stenosis. EKG reveals Sinus rhythm. (6)dehydration Admission creatinine was 1.3. She was 1.0 yesterday. So far she is not allowed us to recheck her blood today. But at this time I think her dehydration and acute kidney injury resolved.
[2020-12-04 17:42] LABS: BASOPHILS % (AUTO) 0.6 %; EOSINOPHILS # (AUTO) 0.2 10^3/uL (0.0-0.7); EOSINOPHILS % (AUTO) 2.5 %; HCT - HEMATOCRIT 23.6 % (37.0-47.0); LYMPHOCYTES # (AUTO) 1.2 10^3/uL (1.5-3.5); LYMPHOCYTES % (AUTO) 18.2 %; MEAN CORPUSCULAR HEMOGLOBIN 29.9 pg (27.0-31.0); MEAN CORPUSCULAR HGB CONC 33.9 g/dL (32.0-36.0); MEAN CORPUSCULAR VOLUME 88.1 fL (81.0-99.0); MEAN PLATELET VOLUME 9.5 fL (7.9-10.8); MONOCYTES # (AUTO) 0.4 10^3/uL (0.0-1.0); MONOCYTES % (AUTO) 6.1 %; NEUTROPHILS # (AUTO) 4.9 10^3/uL (1.5-6.6); NEUTROPHILS % (AUTO) 72.2 %; PLT - PLATELET COUNT 200 10^3/uL (130-450); RED BLOOD COUNT 2.68 10^6/uL (4.20-5.40); RED CELL DISTRIBUTION WIDTH 13.2 % (12.0-15.0); WHITE BLOOD COUNT 6.7 x10^3/uL (4.8-10.8)
[2020-12-04 17:51] LABS: CREATININE 0.9 mg/dL (0.4-1.0); MAGNESIUM 2.1 mg/dL (1.7-2.8); POTASSIUM 3.7 mmol/L (3.5-5.0)
[2020-12-04] MEDS: ATORVASTATIN 40 MG TABLET PO SCH (21:23)
[2020-12-05] MEDS: SODIUM CHLORIDE FLUSH 0.9% 10 ML SYRINGE IVP SCH ×4 (00:46→23:45)
[2020-12-05] MEDS: hydrALAZINE INJ 20 MG/ML VIAL IVP PRN ×2 (00:46→06:31)
[2020-12-05] MEDS: ACETAMINOPHEN 325 MG TABLET PO PRN ×4 (01:34→22:17)
[2020-12-05] MEDS: ONDANSETRON ODT 4 MG TABLET TL PRN (06:04)
[2020-12-05 06:41] LABS: BASOPHILS % (AUTO) 0.5 %; EOSINOPHILS # (AUTO) 0.5 10^3/uL (0.0-0.7); EOSINOPHILS % (AUTO) 5.9 %; HCT - HEMATOCRIT 26.4 % (37.0-47.0); HGB - HEMOGLOBIN 8.7 g/dL (12.0-16.0); LYMPHOCYTES # (AUTO) 1.5 10^3/uL (1.5-3.5); LYMPHOCYTES % (AUTO) 17.8 %; MEAN CORPUSCULAR HEMOGLOBIN 29.6 pg (27.0-31.0); MEAN CORPUSCULAR VOLUME 89.8 fL (81.0-99.0); MEAN PLATELET VOLUME 9.9 fL (7.9-10.8); MONOCYTES # (AUTO) 0.5 10^3/uL (0.0-1.0); MONOCYTES % (AUTO) 6.5 %; NEUTROPHILS # (AUTO) 5.6 10^3/uL (1.5-6.6); NEUTROPHILS % (AUTO) 68.9 %; PLT - PLATELET COUNT 251 10^3/uL (130-450); RED BLOOD COUNT 2.94 10^6/uL (4.20-5.40); RED CELL DISTRIBUTION WIDTH 13.1 % (12.0-15.0); WHITE BLOOD COUNT 8.1 x10^3/uL (4.8-10.8)
[2020-12-05 06:49] LABS: CALCIUM 8.4 mg/dL (8.5-10.3); CREATININE 0.7 mg/dL (0.4-1.0); POTASSIUM 3.5 mmol/L (3.5-5.0)
[2020-12-05] MEDS: PROCHLORPERAZINE 10 MG/2 ML VIAL IVP PRN (07:05)
[2020-12-05] MEDS: polyethylene glycoL 3350 17 GM PACKET PO SCH (08:21)
[2020-12-05] MEDS: CALCIUM CARBONATE CHEW 500 MG TABLET PO SCH ×2 (08:22→20:24)
[2020-12-05] MEDS: ASCORBIC ACID 500 MG TABLET PO SCH (08:22)
[2020-12-05] MEDS: FERROUS GLUCONATE 324 MG TABLET PO SCH (08:22)
[2020-12-05] MEDS: lisinopriL 20 MG TABLET PO SCH (08:22)
[2020-12-05] MEDS: ENOXAPARIN 40 MG/0.4 ML SYRINGE SUBQ SCH (08:23)
[2020-12-05] MEDS: CHOLECALCIFEROL 25 MCG TABLET PO SCH (08:23)
[2020-12-05] MEDS: oxyCODONE 5 MG TABLET PO PRN ×3 (08:23→22:16)
--- NOTE | 2020-12-05 10:43 | PROVIDER PROGRESS NOTE ---
Subjective - Prog Note Date Prog Note Date: 12/05/20 Prog Note Time: 10:41 - Subjective Pt reports feeling: Worse (Patient reports feeling "crummy" d/t worsening nausea and pain in her hip. She is worried about her high BP and is disappointed she is missing a republican tonight where she hoped to make new friends as she is new to living on [facility].) Objective - Vital Signs/Intake & Output Vital Signs: Vital Signs x48h Temp Pulse Resp BP BP Pulse Ox 12/05/20 07:19 37.2 C 105 H 18 149/63 H 98 12/05/20 07:01 149/63 H 12/05/20 06:55 86 142/62 H 12/05/20 06:31 198/134 H Intake & Output: Intake & Output 12/02/20 12/03/20 12/04/20 12/05/20 23:59 23:59 23:59 23:59 Intake Total 0851.804 5921.667 2700 150 Output Total 175 1175 1750 1400 Balance 0466.887 3660.667 950 -1250 - Objective General Appearance: positive: Alert, Mild distress Respiratory: positive: Chest non-tender, No respiratory distress, Breath sounds nml Cardiovascular: positive: Regular rate & rhythm, Systolic murmur (grade 2-3) Abdomen: positive: Non-tender, Nml bowel sounds, No distention Skin: positive: Color nml, No rash, Warm, Dry Extremities: positive: Nml appearance, Other (L hip surgical site discomfort, LUE surgical site discomfort; bunions to bilateral great toes) Neurologic/Psychiatric: positive: Oriented x3, Motor nml, Sensation nml, Mood/affect nml - Lab Results Fish Bones: 12/05/20 06:05 12/05/20 06:05 Other Labs: Lab Results x24hrs 12/05/20 12/05/20 12/04/20 Range/Units 06:05 06:05 17:35 WBC 8.1 (4.8-10.8) x10^3/uL RBC 2.94 L (4.20-5.40) 10^6/uL Hgb 8.7 L (12.0-16.0) g/dL Hct 26.4 L (37.0-47.0) % MCV 89.8 (81.0-99.0) fL MCH 29.6 (27.0-31.0) pg MCHC 33.0 (32.0-36.0) g/dL RDW 13.1 (12.0-15.0) % Plt Count 251 (130-450) 10^3/uL MPV 9.9 (7.9-10.8) fL Neut # (Auto) 5.6 (1.5-6.6) 10^3/uL Lymph # (Auto) 1.5 (1.5-3.5) 10^3/uL [place] # (Auto) 0.5 (0.0-1.0) 10^3/uL Eos # (Auto) 0.5 (0.0-0.7) 10^3/uL Baso # (Auto) 0.0 (0.0-0.1) 10^3/uL Absolute Nucleated RBC 0.00 x10^3/uL Nucleated RBC % 0.0 /100WBC Sodium 135 134 L (135-145) mmol/L Potassium 3.5 3.7 (3.5-5.0) mmol/L Chloride 100 L 101 (101-111) mmol/L Carbon Dioxide 27 25 (21-32) mmol/L Anion Gap 8.0 8.0 (6-13) BUN 13 16 (6-20) mg/dL Creatinine 0.7 0.9 (0.4-1.0) mg/dL Estimated GFR (MDRD) 82 L 61 L (>89) Glucose 135 H 150 H (70-100) mg/dL Calcium 8.4 L 8.0 L (8.5-10.3) mg/dL Magnesium 2.0 2.1 (1.7-2.8) mg/dL 12/04/20 Range/Units 17:35 WBC 6.7 (4.8-10.8) x10^3/uL RBC 2.68 L (4.20-5.40) 10^6/uL Hgb 8.0 L (12.0-16.0) g/dL Hct 23.6 L (37.0-47.0) % MCV 88.1 (81.0-99.0) fL MCH 29.9 (27.0-31.0) pg MCHC 33.9 (32.0-36.0) g/dL RDW 13.2 (12.0-15.0) % Plt Count 200 (130-450) 10^3/uL MPV 9.5 (7.9-10.8) fL Neut # (Auto) 4.9 (1.5-6.6) 10^3/uL Lymph # (Auto) 1.2 L (1.5-3.5) 10^3/uL [place] # (Auto) 0.4 (0.0-1.0) 10^3/uL Eos # (Auto) 0.2 (0.0-0.7) 10^3/uL Baso # (Auto) 0.0 (0.0-0.1) 10^3/uL Absolute Nucleated RBC 0.00 x10^3/uL Nucleated RBC % 0.0 /100WBC Sodium (135-145) mmol/L Potassium (3.5-5.0) mmol/L Chloride (101-111) mmol/L Carbon Dioxide (21-32) mmol/L Anion Gap (6-13) BUN (6-20) mg/dL Creatinine (0.4-1.0) mg/dL Estimated GFR (MDRD) (>89) Glucose (70-100) mg/dL Calcium (8.5-10.3) mg/dL Magnesium (1.7-2.8) mg/dL - Diagnostic Imaging Diagnostic Imaging Results: positive: Final report reviewed (X-ray and fluro reports reviewed) Assessment/Plan - Problem List (1) Fracture of left hip Impression: She is POD #3 of ORIF. Still having pain issues in that hip, more today than yesterday. I discussed with her that days 2-3 can be the most challenging post- operatively, which she stated was reassuring. She is participating with her physical therapy and looks forward to rehab. (2) Acute blood loss anemia She was admitted at 10.7. It was 6.9 post-operatively and she has since received 1 unit of blood. After transfusion she was 7.6, and she is 8.7 today. While her Hg has improved, she is still very symptomatic and today during PT she became pale, diaphoretic and hypotensive. Because she is still symptomatic, we will transfuse an additional 1 unit of PRBCs today for symptomatic anemia. Iron 20, TIBC 189, percent saturation 11, transferrin 135. 10 is 170. LDH 109. B 12 1363. Reticulocyte count is 2.62 with absolute reticulocyte count 0.062. She has been started on ferrous gluconate and vit c. (3) Hypertension This morning she received 10mg IV Hydralazine for a BP 198/134. Elevated BP likely r/t pain, nausea and anticipate this to be variable. Continue Vital signs monitoring, orthostatics. Today she became hypotensive while working with PT; will be very conservative managing her fluctuating pressures at this time as this does not appear to be a chronic issue. She will receive an additional 1 unit PRBCs today for symptomatic anemia, which may improve the hypotension fluctuations. Continue with adequate pain and nausea management (4) Distal radius fracture, left Closed reduction of left distal radius w/ application of short arm cast, stable. This is secondary to the fall. Pain control with oxycodone and HydroMorphine as needed. She will need a platform walker. This will allow her to rest her wrist on a walker to stabilize her from both her arm and her leg. Encouraged her to continue with elevation and active ROM of her left fingers, per orthopedic recommendations. (5) Cardiac murmur ECHO reveals normal EF with mild aortic stenosis. EKG reveals Sinus rhythm. Systolic murmur grade 2-3. (6)dehydration Admission creatinine was 1.3, which improved with fluids. IVFs were stopped, but she requested them to be resumed today since she is unable to take in much PO d/t continued nausea and loss of appetite. Will order D5+NS at 83.3/hr until she is able to take in more PO. (6)Nausea Patient reports extreme nausea since admission. We believe this is likely due to a combination of being opioid-naive (as she states the nausea first began after she received fentanyl in the ED) and also d/t her symptomatic anemia with associated BP lability. Continue antiemetics as ordered. She may benefit from receiving ondansetron 30mins prior to mealtimes to help promote adequate intake.
[2020-12-05] MEDS: HYDROmorphone 1 MG/ML CARPUJECT IVP PRN (11:11)
[2020-12-05] MEDS: SODIUM CHLORIDE FLUSH 0.9% 10 ML SYRINGE IVP PRN (11:12)
[2020-12-05] MEDS: DEXTROSE 5%-0.9% NACL 1,000 ML IV SCH ×2 (11:51→23:50)
[2020-12-05] MEDS: ATORVASTATIN 40 MG TABLET PO SCH (20:24)
[2020-12-05] MEDS: SENNA 8.6 MG TABLET PO SCH (21:27)
[2020-12-05] MEDS: DOCUSATE SODIUM 250 MG CAPSULE PO SCH (21:27)
[2020-12-06] MEDS: ACETAMINOPHEN 325 MG TABLET PO PRN ×5 (02:14→22:40)
[2020-12-06] MEDS: oxyCODONE 5 MG TABLET PO PRN ×5 (02:14→22:58)
[2020-12-06 05:57] LABS: BASOPHILS % (AUTO) 0.5 %; EOSINOPHILS # (AUTO) 0.4 10^3/uL (0.0-0.7); EOSINOPHILS % (AUTO) 5.3 %; HCT - HEMATOCRIT 24.1 % (37.0-47.0); LYMPHOCYTES # (AUTO) 1.8 10^3/uL (1.5-3.5); MEAN CORPUSCULAR HEMOGLOBIN 30.1 pg (27.0-31.0); MEAN CORPUSCULAR HGB CONC 33.2 g/dL (32.0-36.0); MEAN CORPUSCULAR VOLUME 90.6 fL (81.0-99.0); MEAN PLATELET VOLUME 9.6 fL (7.9-10.8); MONOCYTES # (AUTO) 0.6 10^3/uL (0.0-1.0); NEUTROPHILS # (AUTO) 4.5 10^3/uL (1.5-6.6); NEUTROPHILS % (AUTO) 61.7 %; PLT - PLATELET COUNT 272 10^3/uL (130-450); RED BLOOD COUNT 2.66 10^6/uL (4.20-5.40); RED CELL DISTRIBUTION WIDTH 13.5 % (12.0-15.0); WHITE BLOOD COUNT 7.4 x10^3/uL (4.8-10.8)
[2020-12-06 06:04] LABS: CREATININE 0.8 mg/dL (0.4-1.0)
[2020-12-06 06:28] LABS: CALCIUM 8.6 mg/dL (8.5-10.3)
[2020-12-06] MEDS: polyethylene glycoL 3350 17 GM PACKET PO SCH (08:40)
[2020-12-06] MEDS: ONDANSETRON 4 MG/2 ML VIAL IVP PRN (08:41)
[2020-12-06] MEDS: ASCORBIC ACID 500 MG TABLET PO SCH (08:45)
[2020-12-06] MEDS: FERROUS GLUCONATE 324 MG TABLET PO SCH (08:45)
[2020-12-06] MEDS: CALCIUM CARBONATE CHEW 500 MG TABLET PO SCH ×2 (08:45→21:28)
[2020-12-06] MEDS: DOCUSATE SODIUM 250 MG CAPSULE PO SCH (08:45)
[2020-12-06] MEDS: CHOLECALCIFEROL 25 MCG TABLET PO SCH (08:45)
[2020-12-06] MEDS: lisinopriL 20 MG TABLET PO SCH (08:46)
[2020-12-06] MEDS: SENNA 8.6 MG TABLET PO SCH (08:46)
[2020-12-06] MEDS: ENOXAPARIN 40 MG/0.4 ML SYRINGE SUBQ SCH (08:47)
[2020-12-06] MEDS: SODIUM CHLORIDE FLUSH 0.9% 10 ML SYRINGE IVP SCH ×2 (08:48→21:28)
--- NOTE | 2020-12-06 09:10 | PROVIDER PROGRESS NOTE ---
Subjective - Prog Note Date Prog Note Date: 12/06/20 Prog Note Time: 09:06 - Subjective Pt reports feeling: Improved (Patient reports feeling "a little better than yesterday" in terms of pain. She states she was able to eat a little yesterday afternoon, but is still experiencing some nausea. She is hoping to transfer to a rehab facility later today or tomorrow.) Objective - Vital Signs/Intake & Output Vital Signs: Vital Signs x48h Temp Pulse Resp BP Pulse Ox 12/06/20 01:15 37.0 C 77 16 133/59 H 95 Intake & Output: Intake & Output 12/03/20 12/04/20 12/05/20 12/06/20 23:59 23:59 23:59 23:59 Intake Total 3401.667 2700 1708.607 350 Output Total 1175 1750 2300 700 Balance 2226.667 950 -591.393 -350 - Objective General Appearance: positive: No acute distress, Alert Eyes Bilateral: positive: Normal inspection Respiratory: positive: Chest non-tender, No respiratory distress, Breath sounds nml Cardiovascular: positive: Regular rate & rhythm (systolic murmur grade 2-3) Abdomen: positive: Non-tender, No organomegaly, Nml bowel sounds Back: positive: Nml inspection Skin: positive: Color nml, No rash, Warm Neurologic/Psychiatric: positive: Oriented x3, Motor nml, Sensation nml, Mood/affect nml - Lab Results Fish Bones: 12/06/20 05:21 12/06/20 05:21 Other Labs: Lab Results x24hrs 12/06/20 12/06/20 12/03/20 Range/Units 05:21 05:21 16:00 WBC 7.4 (4.8-10.8) x10^3/uL RBC 2.66 L (4.20-5.40) 10^6/uL Hgb 8.0 L (12.0-16.0) g/dL Hct 24.1 L (37.0-47.0) % MCV 90.6 (81.0-99.0) fL MCH 30.1 (27.0-31.0) pg MCHC 33.2 (32.0-36.0) g/dL RDW 13.5 (12.0-15.0) % Plt Count 272 (130-450) 10^3/uL MPV 9.6 (7.9-10.8) fL Neut # (Auto) 4.5 (1.5-6.6) 10^3/uL Lymph # (Auto) 1.8 (1.5-3.5) 10^3/uL [place] # (Auto) 0.6 (0.0-1.0) 10^3/uL Eos # (Auto) 0.4 (0.0-0.7) 10^3/uL Baso # (Auto) 0.0 (0.0-0.1) 10^3/uL Absolute Nucleated RBC 0.00 x10^3/uL Nucleated RBC % 0.0 /100WBC Sodium 138 (135-145) mmol/L Potassium 4.0 (3.5-5.0) mmol/L Chloride 104 (101-111) mmol/L Carbon Dioxide 27 (21-32) mmol/L Anion Gap 7.0 (6-13) BUN 18 (6-20) mg/dL Creatinine 0.8 (0.4-1.0) mg/dL Estimated GFR (MDRD) 70 L (>89) Glucose 114 H (70-100) mg/dL Calcium 8.6 (8.5-10.3) mg/dL Blood Type A POSITIVE Antibody Screen NEGATIVE Crossmatch IS Only See Detail Assessment/Plan - Problem List (1) Fracture of left hip Impression: She is POD #4 of ORIF. Still having pain issues in that hip, less today than yesterday. She is participating with her physical therapy and looks forward to rehab at [facility]. (2) Acute blood loss anemia She was admitted at 10.7. It was 6.9 post-operatively and she has since received ~1/2 unit of blood before it was stopped early due to the patient having a slight. After transfusion she was 7.6, and she is 8.0 today. While her Hg has improved, she is still very symptomatic and yesterday during PT she became pale, diaphoretic and hypotensive. She was very hypotensive during othrostatic VS. We ordered an additional 1 unit PRBCs yesterday, but the patient did not want the transfusion yesterday. She is on board to be transfused today and we will pre- medicate with Tylenol and Benadryl. Because she is still symptomatic, we will transfuse the 1 unit of PRBCs today for symptomatic anemia. Iron 20, TIBC 189, percent saturation 11, transferrin 135. 10 is 170. LDH 109. B12 1363. Reticulocyte count is 2.62 with absolute reticulocyte count 0.062. She has been started on ferrous gluconate and vit c. (3) Hypertension Yesterday morning she received 10mg IV Hydralazine for a BP 198/134. Elevated BP likely r/t pain, nausea and anticipate this to be variable. Yesterday she became hypotensive while working with PT; we will be very conservative managing her fluctuating pressures at this time as this does not appear to be a chronic issue and she becomes quite hypotensive with position changes. She will receive an additional 1 unit PRBCs today for symptomatic anemi a, which may improve the BP fluctuations. Continue with adequate pain and nausea management. (4) Distal radius fracture, left Closed reduction of left distal radius w/ application of short arm cast, stable. This is secondary to the fall. Pain control with oxycodone and HydroMorphine as needed. She will need a platform walker. This will allow her to rest her wrist on a walker to stabilize her from both her arm and her leg. Encouraged her to continue with elevation and active ROM of her left fingers, per orthopedic recommendations. (5) Cardiac murmur ECHO reveals normal EF with mild aortic stenosis. EKG reveals Sinus rhythm. Systolic murmur grade 2-3. (6)dehydration Admission creatinine was 1.3, which improved with fluids. IVFs were stopped, but she requested them to be resumed yesterday since she is unable to take in much PO d/t continued nausea and loss of appetite. D5+NS at 83.3/hr until she is able to take in more PO. (6)Nausea Patient reports extreme nausea since admission. We believe this is likely due to a combination of being opioid-naive (as she states the nausea first began after she received fentanyl in the ED) and also d/t her symptomatic anemia with associated BP lability. Continue antiemetics as ordered. She may benefit from receiving ondansetron 30mins prior to mealtimes to help promote adequate intake.
[2020-12-06] MEDS ORDERED: diphenhydrAMINE INJ 50 MG/ML VIAL IVP STA (09:24)
[2020-12-06] MEDS ORDERED: diphenhydrAMINE INJ 50 MG/ML VIAL ONE (09:29)
--- NOTE | 2020-12-06 11:42 | Discharge Plan ---
"Discharge Plan for SNF / [facility] - Discharge Plan And Transition Orders Problem Reviewed?: Yes - SNF / [facility] Transition Orders Admit to ([facility] Discharge Diagnosis: 1. Intertrochanteric femoral neck fracture 2. Fall 3. Left wrist fracture 4. Orthostatic hypotension 5. Acute blood loss anemia after surgery 6. Hypertension history 7. Mild aortic stenosis, moderate aortic regurgitation Medicare Certification Statement: I certify that Post Hospital half-way care is medically necessary on a continuing basis for any of the conditions for which she/he is receiving care during hospitalization. Notify PCP of admission and forward orders to primary provider for signature. Weight on admission and: Weekly Other Notification Orders: Call PCP immediately if patient develops dyspnea, chest pain/tightness or edema. Additional Bowel Program Orders: If no BM after 2 days, nurse may give M.O.M. 30ml PO PRN and/or ducolax Supp 1 IN and/or NEELAM 250mg P.O., and/or senna 1-2 tabs PO. On day 3 nurse may give repeat above order until residents constipation is resolved. Annual Influenza Vaccine (between Jan 12 and August 11): Yes Two-step PPD per [facility] [id number] or approved exception documents: Yes Medication Orders: PLEASE REFER TO THE DISCHARGE MEDICATION LIST. - Diet Type: Geriatric Texture: Regular Liquids: Thin May have monthly special meal: Yes - Therapies | Activity Therapy: Evaluation | Treat if indicated: PT, OT Rehabilitation Potential: Return to independent living Activity: Wt Bearing as Tolerated Weight Bearing: Full Weight Assistance Devices: Walker, Other (Walker needs platform to support left wrist fracture as she walks.) Follow Up: 1. Orthopedic surgery in 2 weeks to have mayo removed. Also to have postoperative follow-up. 2.. To follow-up with her primary care provider for treatment of osteoporosis. She would be a candidate for calcium, vitamin D, and Reclast. She will need a postoperative CBC. She will also need referral to cardiology for possible symptomatic aortic stenosis. <Antoinette Aleman - Last Filed: 12/06/20 21:19> - SNF / [facility] Transition Orders Medicare Certification Statement: I certify that Post Hospital half-way care is medically necessary on a continuing basis for any of the conditions for which she/he is receiving care during hospitalization. Notify PCP of admission and forward orders to primary provider for signature. Other Notification Orders: Call PCP immediately if patient develops dyspnea, chest pain/tightness or edema. Additional Bowel Program Orders: If no BM after 2 days, nurse may give M.O.M. 30ml PO PRN and/or ducolax Supp 1 IN and/or NEELAM 250mg P.O., and/or senna 1-2 tabs PO. On day 3 nurse may give repeat above order until residents constipation is resolved. Medication Orders: PLEASE REFER TO THE DISCHARGE MEDICATION LIST. <Dickinson - Last Filed: 12/07/20 12:38> - Discharge Plan And Transition Orders Disposition: Home, Self Care Condition: Stable Allergies and Adverse Reactions: Allergies Allergy/AdvReac Type Severity Reaction Status Date / Time No Known Drug Allergies Allergy Verified 11/30/20 22:00 Health Concerns: 75-year-old female who has a past medical history of hypertension who presented to our emergency room with a fall. She ended up breaking her left hip, and her left wrist. Postoperatively she has had orthostatic falls and blood pressure with near syncope when she tries to stand for too long. As such she is received 2 units of blood for symptomatic anemia. She is progressing well with physical therapy but needs further rehab to be able to return to home in independent living. Plan of Treatment: 1. rehabilitation at half-way level of care until she is able to be returning home. 2. Monitor anemia to see if she needs a transfusion down the road. In the meantime she should be on iron and vitamin C daily until hemoglobin reaches normal level of 12 g of hemoglobin. 3. She has a history of syncope at home and had near syncope here that we attributed to acute blood loss anemia. However she has mild to moderate aortic stenosis on echocardiogram. I would strongly recommend a cardiology follow-up in the outpatient setting. She may be a candidate for left heart cath to truly assess aortic valve size and stenosis if she continues to be symptomatic. Care Goals: To return to home and independent living Assessment: Patient understands care goals and will follow through - Medications New Prescriptions: oxyCODONE [Roxicodone] 5 mg PO Q4HR PRN #30 tablet PRN Reason: Pain 5 to 7 Calcium Carbonate [Calcium Antacid] 300 mg PO TID #1 tab.chew Ondansetron HCl [Zofran] 4 mg PO Q6H PRN #15 tab PRN Reason: Nausea / Vomiting"
[2020-12-06] MEDS: DEXTROSE 5%-0.9% NACL 1,000 ML IV SCH (15:32)
[2020-12-06] MEDS: ATORVASTATIN 40 MG TABLET PO SCH (21:28)
[2020-12-06] MEDS ORDERED: BISACODYL 10 MG SUPP PR ONE (21:29)
[2020-12-07] MEDS: SODIUM CHLORIDE FLUSH 0.9% 10 ML SYRINGE IVP SCH ×2 (00:36→09:37)
[2020-12-07] MEDS: oxyCODONE 5 MG TABLET PO PRN ×3 (03:15→12:17)
[2020-12-07] MEDS: ACETAMINOPHEN 325 MG TABLET PO PRN ×3 (03:16→12:16)
[2020-12-07] MEDS: DEXTROSE 5%-0.9% NACL 1,000 ML IV SCH (03:30)
[2020-12-07] MEDS: ONDANSETRON 4 MG/2 ML VIAL IVP PRN (08:14)
[2020-12-07 08:23] LABS: BASOPHILS % (AUTO) 0.4 %; EOSINOPHILS # (AUTO) 0.3 10^3/uL (0.0-0.7); EOSINOPHILS % (AUTO) 2.4 %; HCT - HEMATOCRIT 28.4 % (37.0-47.0); HGB - HEMOGLOBIN 9.3 g/dL (12.0-16.0); LYMPHOCYTES # (AUTO) 1.4 10^3/uL (1.5-3.5); LYMPHOCYTES % (AUTO) 12.9 %; MEAN CORPUSCULAR HEMOGLOBIN 29.9 pg (27.0-31.0); MEAN CORPUSCULAR HGB CONC 32.7 g/dL (32.0-36.0); MEAN CORPUSCULAR VOLUME 91.3 fL (81.0-99.0); MEAN PLATELET VOLUME 9.2 fL (7.9-10.8); MONOCYTES # (AUTO) 0.7 10^3/uL (0.0-1.0); MONOCYTES % (AUTO) 6.3 %; NEUTROPHILS # (AUTO) 8.3 10^3/uL (1.5-6.6); NEUTROPHILS % (AUTO) 77.3 %; PLT - PLATELET COUNT 290 10^3/uL (130-450); RED BLOOD COUNT 3.11 10^6/uL (4.20-5.40); RED CELL DISTRIBUTION WIDTH 14.1 % (12.0-15.0); WHITE BLOOD COUNT 10.7 x10^3/uL (4.8-10.8)
[2020-12-07 08:31] LABS: CALCIUM 8.3 mg/dL (8.5-10.3); CREATININE 0.8 mg/dL (0.4-1.0); POTASSIUM 3.9 mmol/L (3.5-5.0)
[2020-12-07] MEDS: ENOXAPARIN 40 MG/0.4 ML SYRINGE SUBQ SCH (09:35)
[2020-12-07] MEDS: CALCIUM CARBONATE CHEW 500 MG TABLET PO SCH (09:35)
[2020-12-07] MEDS: CHOLECALCIFEROL 25 MCG TABLET PO SCH (09:36)
[2020-12-07] MEDS: ASCORBIC ACID 500 MG TABLET PO SCH (09:36)
[2020-12-07] MEDS: FERROUS GLUCONATE 324 MG TABLET PO SCH (09:36)
[2020-12-07] MEDS: lisinopriL 20 MG TABLET PO SCH (09:37)
[2020-12-07] MEDS: DOCUSATE SODIUM 250 MG CAPSULE PO SCH (09:40)
[2020-12-07] MEDS: SENNA 8.6 MG TABLET PO SCH (09:43)
[2020-12-07] MEDS: polyethylene glycoL 3350 17 GM PACKET PO SCH (09:43)
[2020-12-07] MEDS: PROCHLORPERAZINE 10 MG/2 ML VIAL IVP PRN (11:05)
[2020-12-07] MEDS: SODIUM CHLORIDE FLUSH 0.9% 10 ML SYRINGE IVP PRN (11:10)
--- NOTE | 2020-12-07 11:13 | DISCHARGE SUMMARY ---
"Discharge Summary Admit Date: 12/01/20 Discharge Date: 12/07/20 Discharging Provider: Kennedy Rosenbaum Primary Care Provider: Sushma Nagy Condition at Discharge: Stable Discharge Disposition: 01 Home, Self Care Discharge [facility] Name: [facility] - DIAGNOSES Discharge Diagnoses with Status of Each Condition: (1) Fracture of left hip Patient had a mechanical fall And left hip fracture. Patient had left hip repair by Orthopedic surgeon. Patient had PT and OT evaluation and treatment in the hospital. Patient was recommended to discharge to SNF. Pain medication Hitchcock and Lovenox for DVT prophylaxis is prescribed for patient, Follow-up with orthopedic surgeon In 2 weeks or earlier as needed (2) Acute blood loss anemia Patient had 2 unit blood transfusion hospital. Hemoglobin is 9.3 at discharge. P atient was found iron deficiency as well. Patient is prescribed iron, vitamin C, follow-up with PCP continue monitor hemoglobin. (3) Hypertension Stable, resume patient's home blood pressure medicine, follow-up with PCP continue management (4) Distal radius fracture, left Patient had mechanical fall in the home. Patient had a left distal radius fracture. orthopedic surgeon did Closed reduction of left distal radius w/ application of short arm cast, stable and normal on Neurological and vascular exam on distal fingers. Continue PT/OT SNF, continue cast care for pt in SNF, Follow-up with orthopedic surgeon In 2 weeks or earlier as needed (5) Cardiac murmur ECHO reveals normal EF with mild aortic stenosis. EKG reveals Sinus rhythm. Follow-up with remarketing manager continue management. (6)dehydration Creatinine 0.8, resolved, encourage patient keep hydration (6)Nausea improved. Patient tolerated eating, she ate her diet 100%. Patient reports extreme nausea since admission. We believe this is likely due to being opioid- naive (as she states the nausea first began after she received fentanyl in the ED). Patient is prescribed Zofran as needed. She may benefit from receiving ondansetron 30mins prior to mealtimes to help promote adequate intake. - HPI History of Present Illness: refer from Dr. Milan's HPI on 12/01/20 This is a 75-year-old female with a past medical history significant for hyperte nsion who presents today complaining of left wrist and hip pain after a fall. She states she was walking her dog when the dog appeared to pull on the leash and she stumbled over her own feet and fell on her left side. She immediately complained of left hip and wrist pain. The pain is worse with movement. She reports no numbness in the extremities. She denies syncope or loss of consciousness. She states she felt nauseous after receiving fentanyl via EMS. She also felt chills and hot flashes on her way here. She denies any chest pain, dyspnea. She reports she is normally quite active. She denies any angina. She is able to climb up a flight of stairs without chest pain or dyspnea. She states she has been told she has a murmur in the past but to her knowledge this was not significant. She denies a history of stroke or diabetes. In the emergency department, she was found to have a left distal radius fracture and a left intertrochanteric femur fracture. This was discussed with orthopedic surgery who will evaluate her in the morning. Given the above findings, medicine was consulted for admission. I did discuss goals of care with the patient and she would like to be a DNR. - CONSULTS | PROCEDURES Consultations: Orthopedic surgeon Dr. Benedict Procedures: 1. Open reduction internal fixation intertrochanteric fracture left hip 2. Closed reduction left distal radius and application of short arm cast - HOSPITAL COURSE Hospital Course: Patient had mechanical fall in the home. Patient was found to have left hip fracture and left radius fracture. Patient had a orthopedic surgeon consult. pt had Open reduction internal fixation intertrochanteric fracture left hip and Closed reduction left distal radius and application of short arm cast. After surgery, patient developed symptomatic anemia likely due to surgery blood loss. After transfusion, patient hemoglobin is 9.3, patient's anemia symptoms have resolved. Patient had PT and OT evaluation and treatment, patient was recommended to discharge to [facility]. Patient is discharge to [facility] today With hemodynamic stable condition - ALLERGIES Allergies/Adverse Reactions: Allergies Allergy/AdvReac Type Severity Reaction Status Date / Time No Known Drug Allergies Allergy Verified 11/30/20 22:00 - MEDICATIONS Home Medications: Ambulatory Orders Medication Instructions Recorded Confirmed Benazepril HCl [Lotensin] 20 mg PO DAILY 12/01/20 12/01/20 Rosuvastatin Calcium [Crestor] 20 mg PO QPM 12/01/20 12/01/20 Zolpidem Tartrate [Ambien Cr] 6.25 mg PO QPM PRN 12/01/20 12/01/20 Acetaminophen [Tylenol] 650 mg PO Q4HR PRN tablet 12/06/20 Ascorbic Acid Chew [Vitamin C] 500 mg PO DAILY tablet 12/06/20 Calcium Carbonate [Calcium Antacid] 300 mg PO TID #1 tab.chew 12/06/20 Cholecalciferol [Vitamin D3] 50 mcg PO DAILY tablet 12/06/20 Enoxaparin [Lovenox] 40 mg SUBQ DAILY #14 12/06/20 Ferrous Gluconate [Fergon] 324 mg PO DAILYWM tablet 12/06/20 oxyCODONE [Roxicodone] 5 mg PO Q4HR PRN #30 tablet 12/06/20 Ondansetron HCl [Zofran] 4 mg PO Q6H PRN #15 tab 12/07/20 - PHYSICAL EXAM AT DISCHARGE General Appearance: positive: No acute distress, Alert. negative: Lethargic Eyes Bilateral: positive: Normal inspection, PERRL, No lid inflammation ENT: positive: ENT inspection nml, No signs of dehydration. negative: Purulent nasal drainage Neck: positive: Nml inspection, Trachea midline. negative: Thyromegaly, Tracheal deviation Respiratory: positive: Chest non-tender, No respiratory distress. negative: Wheezes, Rales Cardiovascular: positive: Regular rate & rhythm, Systolic murmur, Diastolic murmur. negative: Tachycardia, Bradycardia Peripheral Pulses: positive: 2+ Abdomen: positive: Non-tender, Nml bowel sounds, No distention. negative: Tenderness Back: positive: Nml inspection Skin: positive: Color nml, Warm, Dry. negative: Cyanosis Extremities: positive: Non-tender, Nml appearance, Other (Both left upper and lower extremity had normal neurological and vascular examination on distal ). negative: Calf tenderness Neurologic/Psychiatric: positive: Oriented x3, Sensation nml, Mood/affect nml. negative: Weakness, Sensory loss, Facial droop, Slurred/abnml speech, Depressed mood/affect - LABS Result Diagrams: 12/07/20 08:15 12/07/20 08:15 - FOLLOW UP Follow Up: 1. rehabilitation at assisted level of care until she is able to be returning home. 2. Monitor anemia to see if she needs a transfusion down the road. In the meantime she should be on iron and vitamin C daily until hemoglobin reaches normal level of 12 g of hemoglobin. 3. She has a history of syncope at home and had near syncope here that we attributed to acute blood loss anemia. However she has mild to moderate aortic stenosis on echocardiogram. I would strongly recommend a cardiology follow-up in the outpatient setting. She may be a candidate for left heart cath to truly assess aortic valve size and stenosis if she continues to be symptomatic. 4. Orthopedic surgery in 2 weeks to have mayo removed or early as needed. Also to have postoperative follow-up. 5. To follow-up with her primary care provider for treatment of osteoporosis. She would be a candidate for calcium, vitamin D, and Reclast. She will need a postoperative CBC. She will also need referral to cardiology for possible symptomatic aortic stenosis. - TIME SPENT Time Spent in Discharge (Minutes): 45"
[2020-12-07 13:22] VITALS: BP 148/59
== END 2020-12-07 13:09 | disposition home or self-care (01) | DRG 481 ==
LOC: EDUNIT# → ED 21:42 → MS2 23:58
PROVIDERS: ADMIT Internal Medicine; ATTEND Nurse Practitioner Gerontology
PROC: 0QS704Z Reposition Left Upper Femur with Internal Fixation Device, Open Approach (ICD-10-PCS; principal; 2020-12-02 12:30)
PROC: 0PSJXZZ Reposition Left Radius, External Approach (ICD-10-PCS; 2020-12-02 12:30)
PROC: 30233N1 Transfusion of Nonautologous Red Blood Cells into Peripheral Vein, Percutaneous Approach (ICD-10-PCS; 2020-12-03)
DX: S72.142A Displaced intertrochanteric fracture of left femur, initial encounter for closed fracture (principal); S52.532A Colles' fracture of left radius, initial encounter for closed fracture; D62 Acute posthemorrhagic anemia; N17.9 Acute kidney failure, unspecified; W01.0XXA Fall on same level from slipping, tripping and stumbling without subsequent striking against object, initial encounter; Y92.9 Unspecified place or not applicable; M85.89 Other specified disorders of bone density and structure, multiple sites; E61.1 Iron deficiency; I10 Essential (primary) hypertension; I35.0 Nonrheumatic aortic (valve) stenosis; E86.0 Dehydration; R11.0 Nausea; T40.2X5A Adverse effect of other opioids, initial encounter; Y92.238 Other place in hospital as the place of occurrence of the external cause; Z66 Do not resuscitate; M16.0 Bilateral primary osteoarthritis of hip; I95.1 Orthostatic hypotension; G89.18 Other acute postprocedural pain; M81.0 Age-related osteoporosis without current pathological fracture
CPT/HCPCS: 36415; 73100; 73502; 80048; 81001; 82607; 82728; 83540; 83615; 83735; 84466; 85014; 85018; 85025; 85045; 86850; 86900; 86901; 86920; 87040; 87205; 87631; 93005; 93306; 97162; 97166; 97530; 99284; 99285; A9270; C1713; J0131; J0690; J1170; J1200; J1650; J7120; P9016; Q0162; 0202U

== ENCOUNTER 2021-01-18 14:07 | Outpatient (CLI) | payer MEDICARE ==
--- NOTE | 2021-01-18 13:15 | XRAY Report ---
PROCEDURE: Wrist 3 View LT INDICATIONS: COLLES FX OF L RADIUS TECHNIQUE: 3 views of the wrist were acquired. COMPARISON: 11/30/2020 FINDINGS: Bones: Comminuted, intra-articular fracture of the distal radius redemonstrated. Soft tissues: No suspicious soft tissue calcifications. IMPRESSION: Comminuted, intra-articular distal radius fracture not significantly changed compared to prior exam.. Reviewed by: Ginger Coreas MD, PhD on 01/18/2021 1:14 PM PDT Approved by: Ginger Coreas MD, PhD on 01/18/2021 1:14 PM PDT Station ID: [id number]
--- NOTE | 2021-01-18 13:17 | XRAY Report ---
PROCEDURE: Hip w/Pelvis 1V LT INDICATIONS: DISPLACED INTERTROCHANTERIC FX OF L FEMUR TECHNIQUE: AP pelvis with lateral view(s) of the bilateral hip(s). COMPARISON: .. FINDINGS: Bones: Postoperative changes compatible with ORIF of intertrochanteric left femur fracture noted. Ort hopedic hardware is intact. Dynamic compression screw projects within 6 mm of the left femoral head. Chronic appearing right obturator ring fracture. Moderate to severe bilateral hip osteophytosis. Soft tissues: The visualized bowel gas pattern is normal. No suspicious soft tissue calcifications. IMPRESSION: Status post ORIF of left intertrochanteric femur fracture. Reviewed by: Ginger Coreas MD, PhD on 01/18/2021 1:16 PM PDT Approved by: Ginger Coreas MD, PhD on 01/18/2021 1:16 PM PDT Station ID: [id number]
--- NOTE | 2021-01-18 13:19 | XRAY Report ---
PROCEDURE: Femur 2V LT INDICATIONS: DISPLACED INTERTROCHANTERIC FX OF L FEMUR TECHNIQUE: 2 views of the left femur were acquired. COMPARISON: None. FINDINGS: Bones: Post surgical changes compatible with ORIF of intertrochanteric proximal left femur fracture. Orthopedic hardware is intact. No lucencies at the bone hardware interface. Dynamic compression screw projects within 6 mm of the humeral head. Single distal interlocking screw. Soft tissues: No suspicious soft tissue calcifications or masses. IMPRESSION: Status post ORIF of intertrochanteric left femur fracture. Reviewed by: Ginger Coreas MD, PhD on 01/18/2021 1:17 PM PDT Approved by: Ginger Coreas MD, PhD on 01/18/2021 1:17 PM PDT Station ID: [id number]
== END 2021-01-18 14:08 ==
LOC: DI.N 14:07
PROVIDERS: ATTEND Orthopaedic Surgery
DX: S52.532A Colles' fracture of left radius, initial encounter for closed fracture (principal); S72.142A Displaced intertrochanteric fracture of left femur, initial encounter for closed fracture

== ENCOUNTER 2021-01-19 13:01 | Outpatient (CLI) | payer MEDICARE ==
[2021-01-19 13:20] LABS: HCT - HEMATOCRIT 36.3 % (37.0-47.0); HGB - HEMOGLOBIN 11.7 g/dL (12.0-16.0); MEAN CORPUSCULAR HEMOGLOBIN 29.7 pg (27.0-31.0); MEAN CORPUSCULAR HGB CONC 32.2 g/dL (32.0-36.0); MEAN CORPUSCULAR VOLUME 92.1 fL (81.0-99.0); MEAN PLATELET VOLUME 9.6 fL (7.9-10.8); RED BLOOD COUNT 3.94 10^6/uL (4.20-5.40); WHITE BLOOD COUNT 9.5 x10^3/uL (4.8-10.8)
== END 2021-01-19 13:02 | disposition home or self-care (01) ==
LOC: LAB 13:01
PROVIDERS: ATTEND Internal Medicine
DX: D50.0 Iron deficiency anemia secondary to blood loss (chronic) (principal)
CPT/HCPCS: 36415; 85027

== ENCOUNTER 2021-03-01 10:45 | Outpatient (CLI) | payer MEDICARE ==
--- NOTE | 2021-03-01 11:06 | XRAY Report ---
PROCEDURE: Femur 2V LT INDICATIONS: DISPLACED INTERTROCHANTERIC FX OF L FEMUR TECHNIQUE: 2 views of the femur were acquired. COMPARISON: January 18, 2021 FINDINGS: BONES: Redemonstrated fracture deformity of the femoral neck with fixation hardware in place. No hard cartwright compromise is appreciated. Moderate to advanced degenerative changes of the hip with joint space loss, remodeling, and osteophyt osis. SOFT TISSUES: No focal abnormality. IMPRESSION: 1.No significant interval change. Reviewed by: Michael Holguin MD on 03/01/2021 11:05 AM PDT Approved by: Michael Holguin MD on 03/01/2021 11:05 AM PDT Station ID: [id number]
--- NOTE | 2021-03-01 11:09 | XRAY Report ---
PROCEDURE: Hip w/Pelvis 2-3V LT INDICATIONS: FRACTURE OF LEFT FEMUR TECHNIQUE: AP pelvis with lateral view(s) of the left hip(s). COMPARISON: October 31, 2020. FINDINGS: BONES/JOINTS: No acute, displaced fracture. Redemonstrated deform of the right pubis, compatible with remote chronic injury. No widening of the p ubic symphysis. The sacroiliac joints are symmetric. The femoral heads are normally seated within the acetabulum. Moderate to advanced degenerative change s of the hips with remodeling, osteophytosis, and sclerosis of the opposing articular surfaces. Left hip fixation hardware is seen without appreciable compromise. SOFT TISSUES: No focal abnormality. IMPRESSION: 1.No acute osseous abnormality. Reviewed by: Michael Holguin MD on 03/01/2021 11:08 AM PDT Approved by: Michael Holguin MD on 03/01/2021 11:08 AM PDT Station ID: [id number]
== END 2021-03-01 23:59 ==
LOC: DI.N 10:45
PROVIDERS: ATTEND Orthopaedic Surgery
DX: S72.142A Displaced intertrochanteric fracture of left femur, initial encounter for closed fracture (principal)

== ENCOUNTER 2021-03-09 14:22 | Outpatient (CLI) | payer MEDICARE ==
[2021-03-09 15:03] LABS: ALBUMIN 4.7 g/dL (3.2-5.5); ALKALINE PHOSPHATASE 75 IU/L (42-121); ALT ALANINE AMINOTRANSFERASE 22 IU/L (10-60); AST ASPARTATE AMINOTRANSFERASE 21 IU/L (10-42); BILIRUBIN,TOTAL 0.6 mg/dL (0.2-1.0); CHOL/HDL RATIO 2.3 (<4.4); CHOLESTEROL 174 mg/dL; HDL CHOLESTEROL 75 mg/dL; LDL CHOLESTEROL,CALCULATED 79 mg/dL; LDL/HDL RATIO 1.1 (<4.4); TOTAL PROTEIN 7.5 g/dL (6.7-8.2); TRIGLYCERIDES 99 mg/dL; VLDL CHOLESTEROL 20 mg/dL
[2021-03-09 16:29] LABS: BILIRUBIN,DIRECT < 0.1 mg/dL (0.1-0.5)
== END 2021-03-09 14:23 | disposition home or self-care (01) ==
LOC: LAB 14:22
PROVIDERS: ATTEND Internal Medicine Cardiovascular Disease
DX: E78.5 Hyperlipidemia, unspecified (principal)
CPT/HCPCS: 36415; 80061; 80076; 83721

== ENCOUNTER 2021-03-23 13:10 | Outpatient (CLI) | payer MEDICARE ==
--- NOTE | 2021-03-23 16:48 | DEXA Report ---
PROCEDURE: Dexa Spine and/or Hip INDICATIONS: OSTEOPOROSIS TECHNIQUE: Dual energy x-ray absorptiometry (DXA) was performed on a FSI System. Regions measur ed are the AP Spine, femoral neck, and if needed forearm. COMPARISON: None. FINDINGS: Lumbar Spine: Bone Mineral Density 1.106 g/cm/cm,T score -0.6, normal Left Hip: Bone Mineral Density 0.770 g/cm/cm,T score -1.9, moderate osteopenia Left Femoral Neck: Bone Mineral Density 0.859 g/cm/cm, T score -1.3, mild osteopenia (T score greater or equal to -1.0: NORMAL) (T score from -1.1 to -2.4: OSTEOPENIA) (T score less than or equal to -2.5 to: OSTEOPOROSIS) Impression: Moderate osteopenia in the left hip. Patients with diagnosis of osteoporosis or osteopenia should have regular bone mineral density assess ment. For those eligible for Medicare, routine testing is allowed once every 2 years. Testing frequ ency can be increased for patients who have rapidly progressing disease or for those who are receivin g medical therapy to restore bone mass. Reviewed by: Jennifer Woods MD on 03/23/2021 4:47 PM PST Approved by: Jennifer Woods MD on 03/23/2021 4:47 PM PST Station ID: [id number]
== END 2021-03-23 13:11 | disposition home or self-care (01) ==
LOC: DI 13:10
PROVIDERS: ATTEND Internal Medicine
DX: M80.00XS Age-related osteoporosis with current pathological fracture, unspecified site, sequela (principal); M85.89 Other specified disorders of bone density and structure, multiple sites

== ENCOUNTER 2022-03-28 08:37 | Outpatient (CLI) | payer MEDICARE | END 2022-03-28 23:59 | disposition critical access hospital (66) | LOC: EMS 08:37 | DX: M25.551 Pain in right hip (principal); W01.0XXA Fall on same level from slipping, tripping and stumbling without subsequent striking against object, initial encounter; Y93.01 Activity, walking, marching and hiking; Y92.008 Other place in unspecified non-institutional (private) residence as the place of occurrence of the external cause | CPT/HCPCS: A0425; A0429 ==

== ENCOUNTER 2022-03-28 09:13 | Inpatient (IN) | payer MEDICARE ==
--- NOTE | 2022-03-28 09:25 | ED Physician Documentation ---
PD HPI LOWER EXT INJURY - Stated complaint Stated Complaint: FALL/RT HIP PX - Chief complaint Chief Complaint: Ext Problem - History obtained from History obtained from: Patient, EMS - History of Present Illness PD HPI LOW EXT INJURY LOCATION: Right, Hip Type of injury: Fall (slipped on [address], landed right hip.) Where injury occurred: Home Timing - onset: How many hours ago (1), Today Timing - duration: Hours (1) Timing - details: Abrupt onset, Still present Improved by: Rest Worsened by: Moving, Palpating Associated symptoms: No: Weakness, Numbness Contributing factors: Prior ortho surgery (left hip November 2020 Dr. bain for left hip fracture.). No: Anticoagulated Recently seen: Not recently seen Review of Systems Constitutional: denies: Fever, Chills Nose: denies: Rhinorrhea / runny nose, Congestion Throat: denies: Sore throat Cardiac: denies: Chest pain / pressure Respiratory: denies: Cough GI: denies: Nausea, Vomiting Skin: denies: Abrasion (s), Laceration (s) Neurologic: denies: Focal weakness, Numbness, Altered mental status, Headache, Head injury PD PAST MEDICAL HISTORY - Past Medical History Cardiovascular: Hypertension, High cholesterol Neuro: None Musculoskeletal: Osteoarthritis - Past Surgical History Past Surgical History: Yes HEENT: Rhinoplasty - Present Medications Home Medications: Ambulatory Orders Medication Instructions Recorded Confirmed Benazepril HCl [Lotensin] 20 mg PO DAILY 12/01/20 12/01/20 Rosuvastatin Calcium [Crestor] 20 mg PO QPM 12/01/20 12/01/20 Zolpidem Tartrate [Ambien Cr] 6.25 mg PO QPM PRN 12/01/20 12/01/20 Acetaminophen [Tylenol] 650 mg PO Q4HR PRN tablet 12/06/20 Ascorbic Acid [Vitamin C] 500 mg PO DAILY tablet 12/06/20 Calcium Carbonate [Calcium Antacid] 300 mg PO TID #1 tab.chew 12/06/20 Cholecalciferol [Vitamin D3] 50 mcg PO DAILY tablet 12/06/20 Enoxaparin [Lovenox] 40 mg SUBQ DAILY #14 12/06/20 Ferrous Gluconate [Fergon] 324 mg PO DAILYWM tablet 12/06/20 oxyCODONE [Roxicodone] 5 mg PO Q4HR PRN #30 tablet 12/06/20 ondansetron HCL [Zofran] 4 mg PO Q6H PRN #15 tab 12/07/20 - Allergies Allergies/Adverse Reactions: Allergies Allergy/AdvReac Type Severity Reaction Status Date / Time No Known Drug Allergies Allergy Verified 11/30/20 22:00 - Social History Does the pt smoke?: No Smoking Status: Never smoker Does the pt drink ETOH?: Yes Does the pt have substance abuse?: No - Immunizations Immunizations are current?: Yes - POLST Patient has POLST: No PD ED PE NORMAL - Vitals Vital signs reviewed: Yes - General General: Alert and oriented X 3, No acute distress, Well developed/nourished - HEENT HEENT: Atraumatic, Moist mucous membranes, Pharynx benign - Neck Neck: Supple, no meningeal sign, No adenopathy - Cardiac Cardiac: RRR, No murmur - Respiratory Respiratory: Clear bilaterally, Other (no chestwall tenderness) - Abdomen Abdomen: Soft, Non tender - Back Back: No spinal TTP - Derm Derm: Normal color, Warm and dry - Extremities Extremities: No deformity, No tenderness to palpate, Other (right hip with pain on slight ROM, impaction and distraction. ) - Neuro Neuro: Alert and oriented X 3, No motor deficit, No sensory deficit, Normal speech Eye Opening: Spontaneous Motor: Obeys Commands Verbal: Oriented GCS Score: 15 - Psych Psych: Normal mood, Normal affect Results - Vitals Vitals: Vital Signs - 24 hr 03/28/22 03/28/22 03/28/22 09:14 10:56 12:00 Temperature 36.2 C L Heart Rate 66 65 84 Respiratory 18 17 Rate Blood Pressure 157/96 H 169/79 H O2 Saturation 100 97 99 03/28/22 14:00 Temperature Heart Rate 84 Respiratory 16 Rate Blood Pressure 160/87 H O2 Saturation 98 Oxygen O2 Source Room air - EKG (time done) 10:36 Rate: Rate (enter#) (63) Rhythm: NSR [place]: Normal Intervals: Normal PA QRS: Normal, Poor R wave progression Ischemia: Normal ST segments. No: ST elevation c/w ischemia, ST depression - Labs Labs: Laboratory Tests 03/28/22 03/28/22 03/28/22 10:29 10:29 10:29 WBC 12.4 H RBC 3.96 L Hgb 11.4 L Hct 35.6 L MCV 89.9 MCH 28.8 MCHC 32.0 RDW 13.0 Plt Count 230 MPV 9.9 Neut # (Auto) 10.6 H Lymph # (Auto) 1.0 L Gilchrist # (Auto) 0.5 Eos # (Auto) 0.2 Baso # (Auto) 0.1 Absolute Nucleated RBC 0.00 Nucleated RBC % 0.0 PT 11.2 INR 1.0 Sodium 138 Potassium 4.3 Chloride 102 Carbon Dioxide 28 Anion Gap 8.0 BUN 19 Creatinine 1.0 Estimated GFR (MDRD) 54 L Glucose 109 H Calcium 9.4 Magnesium 2.1 Total Bilirubin 0.4 AST 25 ALT 21 Alkaline Phosphatase 49 Total Protein 6.5 L Albumin 3.9 Globulin 2.6 Albumin/Globulin Ratio 1.5 Lipase 30 Nasal Adenovirus (PCR) Nasal B. parapertussis DNA (PCR) Nasal Coronavir 229E PCR Nasal Coronavir HKU1 PCR Nasal Coronavir NL63 PCR Nasal Coronavir OC43 PCR Nasal Enterovir/Rhinovir PCR Nasal Influenza B PCR Nasal Influenza A PCR Nasal Parainfluen 1 PCR Nasal Parainfluen 2 PCR Nasal Parainfluen 3 PCR Nasal Parainfluen 4 PCR Nasal RSV (PCR) Nasal B.pertussis DNA PCR Nasal C.pneumoniae (PCR) Alex Human Metapneumo PCR Nasal M.pneumoniae (PCR) Nasal SARS-CoV-2 (PCR) 03/28/22 11:50 WBC RBC Hgb Hct MCV MCH MCHC RDW Plt Count MPV Neut # (Auto) Lymph # (Auto) Gilchrist # (Auto) Eos # (Auto) Baso # (Auto) Absolute Nucleated RBC Nucleated RBC % PT INR Sodium Potassium Chloride Carbon Dioxide Anion Gap BUN Creatinine Estimated GFR (MDRD) Glucose Calcium Magnesium Total Bilirubin AST ALT Alkaline Phosphatase Total Protein Albumin Globulin Albumin/Globulin Ratio Lipase Nasal Adenovirus (PCR) NOT DETECTED Nasal B. parapertussis DNA (PCR) NOT DETECTED Nasal Coronavir 229E PCR NOT DETECTED Nasal Coronavir HKU1 PCR NOT DETECTED Nasal Coronavir NL63 PCR NOT DETECTED Nasal Coronavir OC43 PCR NOT DETECTED Nasal Enterovir/Rhinovir PCR NOT DETECTED Nasal Influenza B PCR NOT DETECTED Nasal Influenza A PCR NOT DETECTED Nasal Parainfluen 1 PCR NOT DETECTED Nasal Parainfluen 2 PCR NOT DETECTED Nasal Parainfluen 3 PCR NOT DETECTED Nasal Parainfluen 4 PCR NOT DETECTED Nasal RSV (PCR) NOT DETECTED Nasal B.pertussis DNA PCR NOT DETECTED Nasal C.pneumoniae (PCR) NOT DETECTED Alex Human Metapneumo PCR NOT DETECTED Nasal M.pneumoniae (PCR) NOT DETECTED Nasal SARS-CoV-2 (PCR) NOT DETECTED - Rads (name of study) right hip Radiology: Prelim report reviewed (right intertrochanteric fracture. ), See rad report PD MEDICAL DECISION MAKING - ED course Complexity details: considered differential, d/w patient, d/w environmental remediation consultant (Dr. Benedict and Dr. Desir) Departure - Departure Disposition: 66 [facility] DC/Xfer Clinical Impression: Intertrochanteric fracture of right hip, Accidental fall Condition: Stable Record reviewed to determine appropriate education?: Yes
[2022-03-28] MEDS ORDERED: HYDROmorphone 1 MG/ML CARPUJECT IM STA (09:40)
--- NOTE | 2022-03-28 10:32 | XRAY Report ---
PROCEDURE: Hip w/Pelvis 2-3V RT INDICATIONS: fall onto right hip, pain TECHNIQUE: AP pelvis with lateral view(s) of the right hip(s). COMPARISON: None. FINDINGS: Bones: There is a trochanteric fracture of the right hip with extension into the base of the femoral neck. Severe right hip degenerative arthritis. Severe left hip degenerative arthritis. Pelvic ring ap pears intact. No suspicious bony lesions. Soft tissues: The visualized bowel gas pattern is normal. No suspicious soft tissue calcifications. IMPRESSION: 1. Trochanteric fracture of the right hip, also involving the base of the femoral neck. 2. Severe bilateral degenerative hip disease. Reviewed by: Reginaldo Monahan MD on 03/28/2022 10:31 AM PST Approved by: Reginaldo Monahan MD on 03/28/2022 10:31 AM PST Station ID: [id number]
[2022-03-28 10:35] LABS: BASOPHILS # (AUTO) 0.1 10^3/uL (0.0-0.1); BASOPHILS % (AUTO) 0.5 %; EOSINOPHILS # (AUTO) 0.2 10^3/uL (0.0-0.7); EOSINOPHILS % (AUTO) 1.8 %; HCT - HEMATOCRIT 35.6 % (37.0-47.0); HGB - HEMOGLOBIN 11.4 g/dL (12.0-16.0); LYMPHOCYTES % (AUTO) 8.3 %; MEAN CORPUSCULAR HEMOGLOBIN 28.8 pg (27.0-31.0); MEAN CORPUSCULAR VOLUME 89.9 fL (81.0-99.0); MEAN PLATELET VOLUME 9.9 fL (7.9-10.8); MONOCYTES # (AUTO) 0.5 10^3/uL (0.0-1.0); MONOCYTES % (AUTO) 4.1 %; NEUTROPHILS # (AUTO) 10.6 10^3/uL (1.5-6.6); NEUTROPHILS % (AUTO) 84.9 %; PLT - PLATELET COUNT 230 10^3/uL (130-450); RED BLOOD COUNT 3.96 10^6/uL (4.20-5.40); WHITE BLOOD COUNT 12.4 x10^3/uL (4.8-10.8)
[2022-03-28 10:50] LABS: PT - PROTHROMBIN TIME 11.2 secs (9.9-12.6)
[2022-03-28 10:57] LABS: ALBUMIN 3.9 g/dL (3.2-5.5); ALBUMIN/GLOBULIN RATIO 1.5 (1.0-2.2); BILIRUBIN,TOTAL 0.4 mg/dL (0.2-1.0); CALCIUM 9.4 mg/dL (8.5-10.3); MAGNESIUM 2.1 mg/dL (1.7-2.8); POTASSIUM 4.3 mmol/L (3.5-5.0); TOTAL PROTEIN 6.5 g/dL (6.7-8.2)
[2022-03-28 12:49] LABS: B. PARAPERTUSSIS- RESP PCR PAN NOT DETECTED; B. PERTUSSIS- RESP PCR PANEL NOT DETECTED; C. PNEUMONIAE- RESP PCR PANEL NOT DETECTED; CORONAVIRUS 229E-RESP PCR NOT DETECTED; CORONAVIRUS HKU1-RESP PCR NOT DETECTED; CORONAVIRUS NL63-RESP PCR NOT DETECTED; CORONAVIRUS OC43-RESP PCR NOT DETECTED; HUMAN METAPNEUMOVIRUS NOT DETECTED; INFLUENZA A- RESP PCR PANEL NOT DETECTED; INFLUENZA B - RESP PCR PANEL NOT DETECTED; M. PNEUMONIAE- RESP PCR PANEL NOT DETECTED; PARAINFLUENZA VIRUS 1 NOT DETECTED; PARAINFLUENZA VIRUS 2 NOT DETECTED; PARAINFLUENZA VIRUS 3 NOT DETECTED; PARAINFLUENZA VIRUS 4 NOT DETECTED; RHINOVIRUS/ENTEROVIRUS NOT DETECTED; RSV- RESP PCR PANEL NOT DETECTED; SARS-CoV-2 -RESP PCR PANEL NOT DETECTED
[2022-03-28] MEDS ORDERED: HYDROmorphone 1 MG/ML CARPUJECT IVP STA (14:36)
[2022-03-28] MEDS ORDERED: KETOROLAC 15 MG/ML VIAL IVP STA (14:36)
--- NOTE | 2022-03-28 14:38 | CONSULTATION NOTE ---
Referring Provider Name of Referring Provider:: ED provider and Orthopedist Consult Date: 03/28/22 Chief Complaint - Chief Complaint Chief Complaint: Pain in R hip after a fall, slipped on icy surface History of Present Illness - Admitted From Admitted From:: ED - History Obtained From Records Reviewed: Yes History obtained from: ED provider and the patient - History of Present Illness HPI Comment/Other: This is a 76 y/o WF with Hx HTN and aortic stenosis. In 2020, she fell and broke her L hip and it was repaired here. During that hospital stay an Echo was done as she had a loud heart murmur and the Echo showed mild Aortic stenosis and moderate Aortic regurg. Cardiology eval and management was advised to be done after discharge. Today while walking outside on an icy surface, she slipped and fell on her R hip, and had pain and was brought to the ED. Her imaging shows a R hip fracture. She is being admitted by Orthopedics and the Hospitalist Team is consulting. At the last admission a year ago, she told the admitting provider she wanted to be a DNR. History - Past Medical History Cardiovascular: reports: Hypertension, High cholesterol, Murmur, Valve disorder (By Echo in 12/01: mild and moderate AI) Neuro: reports: None Musculoskeletal: reports: Osteoarthritis MRSA Hx?: No - Past Surgical History Ortho: reports: Hip replacement (after a fall in 11/2020) HEENT: reports: Rhinoplasty - Family & Social History Family History: Mother: Alive and Well, Father: Alive and Well Family History Comment/Other: Her father from prostate cancer. Both of her grandparents had a history of strokes. She reports no other significant family history. Living arrangement: At home Living Situation: With spouse/s.o. Social History Notes: She is a non-smoker. She drinks a half a beer with dinner on a regular basis. - Substance History Use: Uses substance without health or social issues: NONE - POLST Patient has POLST: No Meds/Allgy - Home Medications Home Medications: Ambulatory Orders Medication Instructions Recorded Confirmed Benazepril HCl [Lotensin] 20 mg PO DAILY 12/01/20 12/01/20 Rosuvastatin Calcium [Crestor] 20 mg PO QPM 12/01/20 12/01/20 Zolpidem Tartrate [Ambien Cr] 6.25 mg PO QPM PRN 12/01/20 12/01/20 Acetaminophen [Tylenol] 650 mg PO Q4HR PRN tablet 12/06/20 Ascorbic Acid [Vitamin C] 500 mg PO DAILY tablet 12/06/20 Calcium Carbonate [Calcium Antacid] 300 mg PO TID #1 tab.chew 12/06/20 Cholecalciferol [Vitamin D3] 50 mcg PO DAILY tablet 12/06/20 Enoxaparin [Lovenox] 40 mg SUBQ DAILY #14 12/06/20 Ferrous Gluconate [Fergon] 324 mg PO DAILYWM tablet 12/06/20 oxyCODONE [Roxicodone] 5 mg PO Q4HR PRN #30 tablet 12/06/20 ondansetron HCL [Zofran] 4 mg PO Q6H PRN #15 tab 12/07/20 - Allergies Allergies/Adverse Reactions: Allergies Allergy/AdvReac Type Severity Reaction Status Date / Time No Known Drug Allergies Allergy Verified 11/30/20 22:00 Review of Systems - All Other Systems All Other Systems: reports: Reviewed and negative Exam - Vital Signs Vital Signs: Vital Signs x48h Temp Pulse Resp BP Pulse Ox 03/28/22 14:00 84 16 160/87 H 98 03/28/22 12:00 84 17 169/79 H 99 03/28/22 10:56 65 97 03/28/22 09:14 36.2 C L 66 18 157/96 H 100 - Physical Exam General Appearance: positive: Alert, Mild distress (Nauseated afyter receiving narcotic Dilaudid) Eyes Bilateral: positive: Normal inspection, EOMI ENT: positive: ENT inspection nml, No signs of dehydration Neck: positive: Nml inspection, No JVD Respiratory: positive: No respiratory distress, Breath sounds nml Cardiovascular: positive: Regular rate & rhythm, Systolic murmur Abdomen: positive: Non-tender, No organomegaly, No distention Skin: positive: Warm, Dry Extremities: positive: No pedal edema Neurologic/Psychiatric: positive: Oriented x3 Conclusion/Plan - Problem List (1) Intertrochanteric fracture of right hip Conclusion/Plan: Caused by fall at home. Plan is for orthopedic surg tomorrow Will allow diet today, clear liquids tomorrow for breakfast, then NPO except meds since she will be third case for the OR tomorrow. Continue pain meds PT and OT to follow after OR (2) Pre-operative clearance Conclusion/Plan: This patient's Revised Cardiac Risk Index is 1 point, which is a Class II risk, which gives her a 6% chance of perioperative cardiac event (such as , [place] or cardiac arrest) and in the next 30 days. The case was discussed with the Orthopedist and Orthopedic PA. The pt has given consent for surgery. (3) Fall at home Conclusion/Plan: Apparently this was a fall because of an icy surface. Because of her anemia plus prior history of falls, after surgery will follow orthostatic vital signs. (4) Nonrheumatic aortic valve stenosis with regurgitation Conclusion/Plan: Her EKG shows the same LVH voltage with NSSTT changes, as a year ago. We need to watch her fluid balance and BP control, since excessive fluids or high BP may cause CHF. (5) Hypertension Conclusion/Plan: We will resume her home med which is DILAN inhibitor. She may need additional doses of IV blood pressure meds since blood pressure could be higher while she is in pain. Qualifiers: Hypertension type: primary hypertension Qualified Code(s): I10 - Essential (primary) hypertension (6) Anemia Conclusion/Plan: She presents mildly anemic, hemoglobin 10 with a normal MCV. Will watch CBC daily - Lab Results Fish Bones: 03/29/22 05:25 03/28/22 10:29 - Diagnostic Imaging Results Diagnostic Imaging Results: positive: Final report reviewed - EKG Results EKG Comparison: Unchanged from prior EKG - Other Other Results/Comments: Attestation: The patient is expected to be discharged or transferred to another facility within 96 hours: Yes.
[2022-03-28] MEDS ORDERED: oxyCODONE 5 MG TABLET PO PRN (16:43)
[2022-03-28] MEDS ORDERED: ACETAMINOPHEN 325 MG TABLET PO PRN (16:43)
[2022-03-28] MEDS ORDERED: SODIUM CHLORIDE FLUSH 0.9% 10 ML SYRINGE IVP PRN (16:43)
[2022-03-28] MEDS ORDERED: TRANEXAMIC ACID 1,000 MG in SODIUM CHLORIDE 0.9% 100ML 100 ML IV STA (16:43)
[2022-03-28] MEDS ORDERED: ONDANSETRON 4 MG/2 ML VIAL IVP PRN (16:43)
[2022-03-28] MEDS ORDERED: fentaNYL 100 MCG/2 ML VIAL IVP STA (16:43)
--- NOTE | 2022-03-28 16:50 | HISTORY & PHYSICAL EXAMINATION ---
HPI - History Obtained From History obtained from: Patient, Family, Other Exam limitations: Clinical condition - History of Present Illness HPI Comment/Other: This is a 76-year-old woman who slipped on pavement today and landed on her right hip. She had marked pain about her right hip and upper thigh, inability to bear weight on right leg and was brought to the emergency room for evaluation. She does have a history of arthritis to her hips, mainly left and had an intertrochanteric fracture of her left hip that I treated with intramedullary nail. She states she can walk up to 2 miles per day. Her right hip is been bothering her recently. She denies any other areas of pain other than her right hip. She denies chest pain, shortness of breath, dizziness or syncope associated with the fall. The pavement that she fell was slippery at the time of fall. She is accompanied by her significant other, soon-to-be as there contemplating wedding on 04/08/2022. She has been evaluated in the [place] area for potential hip replacement on the left. She is also been evaluated for her back. She does have a history of a murmur. She does have a history of a transient ischemic attack in the past. She does have hypertension. She denies myocardial infarction, stroke, pulmonary embolus or cancer. PMH/PSH - Past Medical History Cardiovascular: positive: Hypertension, High cholesterol, Murmur, Valve disorder (By Echo 12/01: mild and moderate AI) Neuro: positive: None Musculoskeletal: positive: Osteoarthritis MRSA Hx?: No - Past Surgical History Ortho: positive: Hip replacement (after a fall in 11/2020) HEENT: positive: Rhinoplasty Social & Family Hx - Social History Does the pt smoke?: No Smoking Status: Never smoker Does the pt drink ETOH?: Yes Does the pt have substance abuse?: No - POLST Patient has POLST: No Meds/Allgy - Home Medications Home Medications: Ambulatory Orders Medication Instructions Recorded Confirmed Benazepril HCl [Lotensin] 20 mg PO DAILY 12/01/20 12/01/20 Rosuvastatin Calcium [Crestor] 20 mg PO QPM 12/01/20 12/01/20 Zolpidem Tartrate [Ambien Cr] 6.25 mg PO QPM PRN 12/01/20 12/01/20 Acetaminophen [Tylenol] 650 mg PO Q4HR PRN tablet 12/06/20 Ascorbic Acid [Vitamin C] 500 mg PO DAILY tablet 12/06/20 Calcium Carbonate [Calcium Antacid] 300 mg PO TID #1 tab.chew 12/06/20 Cholecalciferol [Vitamin D3] 50 mcg PO DAILY tablet 12/06/20 Enoxaparin [Lovenox] 40 mg SUBQ DAILY #14 12/06/20 Ferrous Gluconate [Fergon] 324 mg PO DAILYWM tablet 12/06/20 oxyCODONE [Roxicodone] 5 mg PO Q4HR PRN #30 tablet 12/06/20 ondansetron HCL [Zofran] 4 mg PO Q6H PRN #15 tab 12/07/20 - Allergies Allergies/Adverse Reactions: Allergies Allergy/AdvReac Type Severity Reaction Status Date / Time No Known Drug Allergies Allergy Verified 11/30/20 22:00 Exam - Vital Signs Vital Signs: Vital Signs x48h Temp Pulse Resp BP Pulse Ox 03/28/22 14:00 84 16 160/87 H 98 03/28/22 12:00 84 17 169/79 H 99 03/28/22 10:56 65 97 03/28/22 09:14 36.2 C L 66 18 157/96 H 100 - Physical Exam General Appearance: positive: Mild distress Eyes Bilateral: positive: Normal inspection Neck: negative: Other (No pain with movement) Respiratory: positive: Chest non-tender, No respiratory distress, Breath sounds nml Cardiovascular: positive: Regular rate & rhythm Peripheral Pulses: positive: 2+ Abdomen: positive: Non-tender Skin: positive: Color nml, No rash, Warm, Dry Neurologic/Psychiatric: positive: Oriented x3, Motor nml, Sensation nml Comments/Other: Right leg so shortening and external rotation, marked pain with any attempted passive right hip motion. Neurovascular is intact right leg. There is no tenderness to upper extremities or left hip Results - Lab Results Fish Bones: 03/28/22 10:29 03/28/22 10:29 Other Lab Results: Lab Results x24hrs 03/28/22 03/28/22 03/28/22 Range/Units 11:50 10:29 10:29 WBC (4.8-10.8) x10^3/uL RBC (4.20-5.40) 10^6/uL Hgb (12.0-16.0) g/dL Hct (37.0-47.0) % MCV (81.0-99.0) fL MCH (27.0-31.0) pg MCHC (32.0-36.0) g/dL RDW (12.0-15.0) % Plt Count (130-450) 10^3/uL MPV (7.9-10.8) fL Neut # (Auto) (1.5-6.6) 10^3/uL Lymph # (Auto) (1.5-3.5) 10^3/uL Leslie # (Auto) (0.0-1.0) 10^3/uL Eos # (Auto) (0.0-0.7) 10^3/uL Baso # (Auto) (0.0-0.1) 10^3/uL Absolute Nucleated RBC x10^3/uL Nucleated RBC % /100WBC PT 11.2 (9.9-12.6) secs INR 1.0 (0.8-1.2) Sodium 138 (135-145) mmol/L Potassium 4.3 (3.5-5.0) mmol/L Chloride 102 (101-111) mmol/L Carbon Dioxide 28 (21-32) mmol/L Anion Gap 8.0 (6-13) BUN 19 (6-20) mg/dL Creatinine 1.0 (0.4-1.0) mg/dL Estimated GFR (MDRD) 54 L (>89) Glucose 109 H (70-100) mg/dL Calcium 9.4 (8.5-10.3) mg/dL Magnesium 2.1 (1.7-2.8) mg/dL Total Bilirubin 0.4 (0.2-1.0) mg/dL AST 25 (10-42) IU/L ALT 21 (10-60) IU/L Alkaline Phosphatase 49 (42-121) IU/L Total Protein 6.5 L (6.7-8.2) g/dL Albumin 3.9 (3.2-5.5) g/dL Globulin 2.6 (2.1-4.2) g/dL Albumin/Globulin Ratio 1.5 (1.0-2.2) Lipase 30 (22-51) U/L Nasal Adenovirus (PCR) NOT DETECTED Nasal B. parapertussis DNA (PCR) NOT DETECTED Nasal Coronavir 229E PCR NOT DETECTED Nasal Coronavir HKU1 PCR NOT DETECTED Nasal Coronavir NL63 PCR NOT DETECTED Nasal Coronavir OC43 PCR NOT DETECTED Nasal Enterovir/Rhinovir PCR NOT DETECTED Nasal Influenza B PCR NOT DETECTED Nasal Influenza A PCR NOT DETECTED Nasal Parainfluen 1 PCR NOT DETECTED Nasal Parainfluen 2 PCR NOT DETECTED Nasal Parainfluen 3 PCR NOT DETECTED Nasal Parainfluen 4 PCR NOT DETECTED Nasal RSV (PCR) NOT DETECTED Nasal B.pertussis DNA PCR NOT DETECTED Nasal C.pneumoniae (PCR) NOT DETECTED Alex Human Metapneumo PCR NOT DETECTED Nasal M.pneumoniae (PCR) NOT DETECTED Nasal SARS-CoV-2 (PCR) NOT DETECTED 03/28/22 Range/Units 10:29 WBC 12.4 H (4.8-10.8) x10^3/uL RBC 3.96 L (4.20-5.40) 10^6/uL Hgb 11.4 L (12.0-16.0) g/dL Hct 35.6 L (37.0-47.0) % MCV 89.9 (81.0-99.0) fL MCH 28.8 (27.0-31.0) pg MCHC 32.0 (32.0-36.0) g/dL RDW 13.0 (12.0-15.0) % Plt Count 230 (130-450) 10^3/uL MPV 9.9 (7.9-10.8) fL Neut # (Auto) 10.6 H (1.5-6.6) 10^3/uL Lymph # (Auto) 1.0 L (1.5-3.5) 10^3/uL Leslie # (Auto) 0.5 (0.0-1.0) 10^3/uL Eos # (Auto) 0.2 (0.0-0.7) 10^3/uL Baso # (Auto) 0.1 (0.0-0.1) 10^3/uL Absolute Nucleated RBC 0.00 x10^3/uL Nucleated RBC % 0.0 /100WBC PT (9.9-12.6) secs INR (0.8-1.2) Sodium (135-145) mmol/L Potassium (3.5-5.0) mmol/L Chloride (101-111) mmol/L Carbon Dioxide (21-32) mmol/L Anion Gap (6-13) BUN (6-20) mg/dL Creatinine (0.4-1.0) mg/dL Estimated GFR (MDRD) (>89) Glucose (70-100) mg/dL Calcium (8.5-10.3) mg/dL Magnesium (1.7-2.8) mg/dL Total Bilirubin (0.2-1.0) mg/dL AST (10-42) IU/L ALT (10-60) IU/L Alkaline Phosphatase (42-121) IU/L Total Protein (6.7-8.2) g/dL Albumin (3.2-5.5) g/dL Globulin (2.1-4.2) g/dL Albumin/Globulin Ratio (1.0-2.2) Lipase (22-51) U/L Nasal Adenovirus (PCR) Nasal B. parapertussis DNA (PCR) Nasal Coronavir 229E PCR Nasal Coronavir HKU1 PCR Nasal Coronavir NL63 PCR Nasal Coronavir OC43 PCR Nasal Enterovir/Rhinovir PCR Nasal Influenza B PCR Nasal Influenza A PCR Nasal Parainfluen 1 PCR Nasal Parainfluen 2 PCR Nasal Parainfluen 3 PCR Nasal Parainfluen 4 PCR Nasal RSV (PCR) Nasal B.pertussis DNA PCR Nasal C.pneumoniae (PCR) Alex Human Metapneumo PCR Nasal M.pneumoniae (PCR) Nasal SARS-CoV-2 (PCR) Impression/Plan - Problem List Problem List: 1. Mildly displaced intertrochanteric fracture right hip 2. Bilateral hip osteoarthritis, left worse than right with previous healed intertrochanteric fracture left hip with internal fixation. 3. Anemia 4. Hypertension 5. History of transient ischemic attack 6. History of cardiac murmur The pros and cons of internal fixation to fix the fracture versus total hip arthroplasty were discussed with her and her significant other. Both are reasonable procedures but there is a significantly increased risk with total hip replacement in the fracture. The morbidity is higher with a total hip replacement. The advantage of a total hip replacement is that it can potentially reduce the procedure to 1 instead of a staged procedure. However, she is doing quite well with her internally fixed left hip despite relatively advanced arthritis of the hip on the left side. The hip arthritis on the right side is less than the left. My opinion is to do the simpler and safer operation, consider stage II operation if needed which would be a total hip replacement. She healed her fracture on the left side well. She is in agreement to proceeding at this time with open duction internal fixation with intramedullary nail and screw. I can discuss it with her again tomorrow morning. She is being comanaged by orthopedics and her hospitalist. This was discussed with our hospitalist who was in agreement. She should be n.p.o. after midnight, sequential compression device for deep venous thrombosis, oral and intravenous pain medication, Tranexamic acid to reduce blood loss and intravenous fluid replacement to help with volume and blood loss associated with fracture. The plan would be to do her surgery tomorrow.
[2022-03-28] MEDS: NS W/20 MEQ KCL 1,000 ML IV SCH (17:43)
[2022-03-28] MEDS ORDERED: TRANEXAMIC ACID IN NACL 1,000 MG/100 ML BAG IV ONE (18:00)
[2022-03-28] MEDS: SODIUM CHLORIDE FLUSH 0.9% 10 ML SYRINGE IVP SCH ×2 (18:15→23:28)
[2022-03-28] MEDS ORDERED: PROCHLORPERAZINE 10 MG/2 ML VIAL IVP PRN (19:31)
[2022-03-28] MEDS: oxyCODONE 5 MG TABLET PO PRN (21:02)
[2022-03-28] MEDS: ATORVASTATIN 40 MG TABLET PO SCH (21:02)
[2022-03-29] MEDS: oxyCODONE 5 MG TABLET PO PRN ×4 (01:53→21:17)
[2022-03-29] MEDS: NS W/20 MEQ KCL 1,000 ML IV SCH ×2 (03:24→16:25)
[2022-03-29 05:53] LABS: BASOPHILS % (AUTO) 0.4 %; EOSINOPHILS % (AUTO) 0.4 %; HCT - HEMATOCRIT 32.6 % (37.0-47.0); HGB - HEMOGLOBIN 10.7 g/dL (12.0-16.0); LYMPHOCYTES # (AUTO) 1.3 10^3/uL (1.5-3.5); LYMPHOCYTES % (AUTO) 13.8 %; MEAN CORPUSCULAR HEMOGLOBIN 29.2 pg (27.0-31.0); MEAN CORPUSCULAR HGB CONC 32.8 g/dL (32.0-36.0); MEAN CORPUSCULAR VOLUME 89.1 fL (81.0-99.0); MONOCYTES # (AUTO) 0.5 10^3/uL (0.0-1.0); MONOCYTES % (AUTO) 5.4 %; NEUTROPHILS # (AUTO) 7.6 10^3/uL (1.5-6.6); NEUTROPHILS % (AUTO) 79.8 %; PLT - PLATELET COUNT 241 10^3/uL (130-450); RED BLOOD COUNT 3.66 10^6/uL (4.20-5.40); RED CELL DISTRIBUTION WIDTH 12.9 % (12.0-15.0); WHITE BLOOD COUNT 9.6 x10^3/uL (4.8-10.8)
[2022-03-29] MEDS: SODIUM CHLORIDE FLUSH 0.9% 10 ML SYRINGE IVP SCH ×3 (08:41→23:50)
[2022-03-29] MEDS: lisinopriL 20 MG TABLET PO SCH (08:41)
--- NOTE | 2022-03-29 08:45 | PHARMACY PROGRESS NOTE ---
- Best Possible Medication History Admit Date and Time: 03/28/22 8145 Processed by: Pharmacy Medication History completed: Yes Patient Interview: Completed Secondary Source(s): Pharmacy records (pt is a good historian) As the person ultimately responsible for medication therapy, providers are able to order a medication from an existing home medication list in [facility] via the "Reconcile Routine" prior to Confirmation of that medication by call center support consultant. Such practice is discouraged except when the physician, in their clinical judgment, deems that a medical need exists for a medication without regard to previous use.
--- NOTE | 2022-03-29 12:37 | ANESTHESIA ---
Pre-Anesthesia VS, & Labs - Diagnosis R hip intertroch fx - Procedure R hip nailing Vital Signs: Temp Pulse Resp BP Pulse Ox O2 Flow Rate 36.6 C 69 16 178/74 H 99 03/29/22 08:15 03/29/22 08:15 03/29/22 08:15 03/29/22 08:15 03/29/22 08:15 Height: 5 ft 6 in Weight (kg): 58 kg Body Mass Index: 20.6 BMI Classification: Normal - NPO >8 hours - Is Patient ?: No - Lab Results Current Lab Results: Laboratory Tests 03/29/22 05:25: WBC 9.6, RBC 3.66 L, Hgb 10.7 L, Hct 32.6 L, MCV 89.1, MCH 29.2, MCHC 32.8, RDW 12.9, Plt Count 241, MPV 10.0, Neut # (Auto) 7.6 H, Lymph # (Auto) 1.3 L, [place] # (Auto) 0.5, Eos # (Auto) 0.0, Baso # (Auto) 0.0, Absolute Nucleated RBC 0.00, Nucleated RBC % 0.0 03/28/22 10:29: Sodium 138, Potassium 4.3, Chloride 102, Carbon Dioxide 28, Anion Gap 8.0, BUN 19, Creatinine 1.0, Estimated GFR (MDRD) 54 L, Glucose 109 H, Calcium 9.4, Magnesium 2.1, Total Bilirubin 0.4, AST 25, ALT 21, Alkaline Phosphatase 49, Total Protein 6.5 L, Albumin 3.9, Globulin 2.6, Albumin/Globulin Ratio 1.5, Lipase 30 03/28/22 10:29: PT 11.2, INR 1.0 03/28/22 10:29: WBC 12.4 H, RBC 3.96 L, Hgb 11.4 L, Hct 35.6 L, MCV 89.9, MCH 28.8, MCHC 32.0, RDW 13.0, Plt Count 230, MPV 9.9, Neut # (Auto) 10.6 H, Lymph # (Auto) 1.0 L, [place] # (Auto) 0.5, Eos # (Auto) 0.2, Baso # (Auto) 0.1, Absolute Nucleated RBC 0.00, Nucleated RBC % 0.0 Lab results reviewed: Yes Fish Bones: 03/29/22 05:25 03/28/22 10:29 Home Medications and Allergies Home Medications: Ambulatory Orders Alendronate Sodium 1 tab PO Q7D 03/29/22 Calcium Carbonate/Vitamin D3 [Calcium 600-Vit D3 200 Tablet] 1 tab PO DAILY 03/29/22 Famciclovir 1 tab PO Q48H 03/29/22 Zolpidem Tartrate [Zolpidem Tartrate ER] 6.25 mg PO HS 03/29/22 amLODIPine [Norvasc] 1 tab PO DAILY 03/29/22 Active Medications Acetaminophen (Acetaminophen 325 Mg Tablet) 650 mg PO Q4HR PRN PRN Reason: Pain 1 to 4, or Fever Atorvastatin Calcium (Atorvastatin 40 Mg Tablet) 40 mg PO QPM [facility] Last Admin: 03/28/22 21:02 Dose: 40 mg Potassium Chloride/Sodium Chloride (Normal Saline 0.9% W/20 Meq Kcl) 1,000 mls @ 100 mls/hr IV .Q10H [facility] Last Admin: 03/29/22 03:24 Dose: 100 mls/hr Lisinopril (Lisinopril 20 Mg Tablet) 20 mg PO DAILY [facility] Last Admin: 03/29/22 08:41 Dose: 20 mg Ondansetron HCl (Ondansetron 4 Mg/2 Ml Vial) 4 mg IVP Q6HR PRN PRN Reason: Nausea / Vomiting Last Admin: 03/28/22 17:42 Dose: 4 mg Oxycodone HCl (Oxycodone 5 Mg Tablet) 5 mg PO Q4HR PRN PRN Reason: Pain 5 to 7 Last Admin: 03/29/22 06:05 Dose: 5 mg Prochlorperazine Edisylate (Prochlorperazine 10 Mg/2 Ml Vial) 10 mg IVP Q6HR PRN PRN Reason: Nausea / Vomiting Last Admin: 03/28/22 20:04 Dose: 10 mg Sodium Chloride (Sodium Chloride Flush 0.9% 10 Ml Syringe) 10 ml IVP PRN PRN PRN Reason: NEEDED PER PROVIDER ORDERS Sodium Chloride (Sodium Chloride Flush 0.9% 10 Ml Syringe) 10 ml IVP 0100,0900,1700 [facility] Last Admin: 03/29/22 08:41 Dose: 10 ml Zolpidem Tartrate (Zolpidem 5 Mg Tablet) 5 mg PO QPM PRN PRN Reason: Insomnia Benazepril HCl [Lotensin] 20 mg PO DAILY 12/01/20 Rosuvastatin Calcium [Crestor] 20 mg PO QPM 12/01/20 Alendronate Sodium 1 tab PO Q7D 03/29/22 Calcium Carbonate/Vitamin D3 [Calcium 600-Vit D3 200 Tablet] 1 tab PO DAILY 03/29/22 Famciclovir 1 tab PO Q48H 03/29/22 Zolpidem Tartrate [Zolpidem Tartrate ER] 6.25 mg PO HS 03/29/22 amLODIPine [Norvasc] 1 tab PO DAILY 03/29/22 Allergies/Adverse Reactions: Allergies Allergy/AdvReac Type Severity Reaction Status Date / Time hydromorphone AdvReac Nausea Verified 03/29/22 10:34 Anes History & Medical History - Anesthetic History Anesthesia Complications: reports: No previous complications, Opioid sensitivity Family history of Anesthesia Complications: Denies Family history of Malignant Hyperthermia: Denies - Medical History Cardiovascular: reports: Hypertension, High cholesterol, Murmur, Valve disorder (By Echo in 12/01: mild and moderate AI) Neuro: reports: None Musculoskeletal: reports: Osteoarthritis Smoking Status: Never smoker History of Cancer?: No - Surgical History Eyes Ears Nose Throat (EENT): reports: Rhinoplasty Orthopedic: reports: Hip replacement (after a fall in 11/2020) Exam General: Alert, Oriented x3, Cooperative Dental: WNL Mouth Openin Fingerbreadth Neck Mobility: Normal Mallampati classification: II Thyromental Distance: 4-6 cm Respiratory: Lungs clear, Normal breath sounds, No respiratory distress Cardiovascular: Regular rate Neurological: Normal speech Mental/Cognitive Status: Alert/Oriented X3, Normal for patient Cognitive Status: Within normal limits Plan Anesthesia Type: Spinal, Fascia Iliaca Block Consent for Procedure(s) Verified and Reviewed: Yes Code Status: Attempt Resuscitation ASA classification: 2-Mild systemic disease Is this case an emergency?: No
[2022-03-29] MEDS ORDERED: BUPIVACAINE 0.25% PF 10 ML VIAL ONE (12:49)
[2022-03-29] MEDS ORDERED: ePHEDrine 50 MG/ML VIAL IVP PRN (12:56)
[2022-03-29] MEDS ORDERED: ATROPINE ABBOJECT 1 MG/10 ML SYRINGE IVP PRN (12:56)
[2022-03-29] MEDS ORDERED: METOCLOPRAMIDE 10 MG/2 ML VIAL IVP PRN (12:56)
[2022-03-29] MEDS ORDERED: HYDROmorphone 0.5 MG/0.5 ML SYRINGE IVP PRN (12:56)
[2022-03-29] MEDS ORDERED: MORPHINE 2 MG/ML CARPUJECT IVP PRN (12:56)
[2022-03-29] MEDS ORDERED: fentaNYL 100 MCG/2 ML VIAL IVP PRN ×2 (12:56→16:01)
[2022-03-29] MEDS ORDERED: NALOXONE 0.4 MG/ML VIAL IVP PRN (12:56)
[2022-03-29] MEDS ORDERED: ONDANSETRON 4 MG/2 ML VIAL IVP PRN ×2 (12:56→15:38)
[2022-03-29] MEDS ORDERED: PROPOFOL 200 MG/20 ML VIAL IVP ONE (12:57)
[2022-03-29] MEDS ORDERED: KETAMINE 500 MG/10 ML VIAL ONE (12:57)
[2022-03-29] MEDS ORDERED: LACTATED RINGERS 1,000 ML IV SCH (13:00)
--- NOTE | 2022-03-29 13:09 | PROVIDER PROGRESS NOTE ---
Subjective - General Admit Date: 03/28/22 Procedure Date: 12/02/20 Post Op Days: 482 - Review of Systems All Other Systems: positive: Reviewed and negative - Other Other Information/Narrative: Patient's right hip pain is under better control today. She denies chest pain, shortness of breath, nausea or vomiting. Objective - Patient Data Vital Signs: Vital Signs x48h Temp Pulse Resp BP Pulse Ox 03/29/22 08:15 36.6 C 69 16 178/74 H 99 Weight: Weight 03/27/22 03/28/22 03/29/22 23:59 23:59 23:59 Weight (kg) 58 kg 58 kg Intake & Output: Intake and Output Totals x24h 03/27/22 03/28/22 03/29/22 23:59 23:59 23:59 Intake Total 500 1868.333 Output Total 200 400 Balance 300 1468.333 - Lab Results Lab Results: 03/29/22 05:25 03/28/22 10:29 Other Lab Results: Lab Results x24hrs 03/29/22 Range/Units 05:25 WBC 9.6 (4.8-10.8) x10^3/uL RBC 3.66 L (4.20-5.40) 10^6/uL Hgb 10.7 L (12.0-16.0) g/dL Hct 32.6 L (37.0-47.0) % MCV 89.1 (81.0-99.0) fL MCH 29.2 (27.0-31.0) pg MCHC 32.8 (32.0-36.0) g/dL RDW 12.9 (12.0-15.0) % Plt Count 241 (130-450) 10^3/uL MPV 10.0 (7.9-10.8) fL Neut # (Auto) 7.6 H (1.5-6.6) 10^3/uL Lymph # (Auto) 1.3 L (1.5-3.5) 10^3/uL [place] # (Auto) 0.5 (0.0-1.0) 10^3/uL Eos # (Auto) 0.0 (0.0-0.7) 10^3/uL Baso # (Auto) 0.0 (0.0-0.1) 10^3/uL Absolute Nucleated RBC 0.00 x10^3/uL Nucleated RBC % 0.0 /100WBC - Current Medications Current Medications: Current Medications Generic Name Dose Route Start Last Admin Trade Name Freq PRN Reason Stop Dose Admin Atorvastatin Calcium 40 mg 03/28/22 21:00 03/28/22 21:02 Atorvastatin 40 Mg Tablet PO 40 mg QPM NITO Administration Potassium Chloride/Sodium Chloride 1,000 mls @ 100 mls/hr 03/28/22 17:00 03/29/22 03:24 Normal Saline 0.9% W/20 Meq Kcl IV 100 mls/hr .Q10H NITO Administration Lisinopril 20 mg 03/29/22 09:00 03/29/22 08:41 Lisinopril 20 Mg Tablet PO 20 mg DAILY NITO Administration Ondansetron HCl 4 mg 03/28/22 16:43 03/28/22 17:42 Ondansetron 4 Mg/2 Ml Vial IVP 4 mg Q6HR PRN Administration Nausea / Vomiting Oxycodone HCl 5 mg 03/28/22 16:58 03/29/22 06:05 Oxycodone 5 Mg Tablet PO 5 mg Q4HR PRN Administration Pain 5 to 7 Prochlorperazine Edisylate 10 mg 03/28/22 19:31 03/28/22 20:04 Prochlorperazine 10 Mg/2 Ml Vial IVP 10 mg Q6HR PRN Administration Nausea / Vomiting Sodium Chloride 10 ml 03/28/22 17:00 03/29/22 08:41 Sodium Chloride Flush 0.9% 10 Ml Syringe IVP 10 ml 0100,0900,1700 NITO Administration - Physical Exam General Appearance: positive: No acute distress Comments/Other: Right leg is shortened and externally rotated, painful with any movement right leg. There is no sign of hematoma to the upper right thigh. Neurovascular intact right leg Impression/Plan - Problem List Problem List: Intertrochanteric fracture right hip with osteoarthritis right hip The patient is stable, low blood count but acceptable at 10.7. I had discussion with her regarding internal fixation versus total hip arthroplasty. She is in agreement to proceeding with internal fixation, similar procedure as she had on the opposite hip. She knows that after fracture heals, she may need a second procedure which would be a hip replacement. The pros and cons of internal fixation versus hip replacement were discussed. A hip replacement done acutely for fracture has a different set of complications than elective hip replacement.
[2022-03-29] MEDS ORDERED: ceFAZolin 1 GM VIAL ONE (13:38)
[2022-03-29] MEDS ORDERED: PROPOFOL 500 MG/50 ML 500 MG/50 ML VIAL ONE (13:41)
[2022-03-29] MEDS ORDERED: TRANEXAMIC ACID 1,000 MG/10 ML VIAL ONE (13:51)
[2022-03-29] MEDS ORDERED: BUPIVACAINE 0.25% PF 10 ML VIAL SUBQ ONE (14:15)
[2022-03-29] MEDS ORDERED: ROPIVACAINE 0.2% PF 10 ML VIAL ONE (14:50)
[2022-03-29] MEDS ORDERED: SODIUM CHLORIDE 0.9% 10 ML VIAL IVP ONE (14:55)
--- NOTE | 2022-03-29 14:59 | OPERATIVE REPORT ---
Operative Report - General Admit Date: 03/28/22 Procedure Date: 03/29/22 Planned Procedure: Open reduction internal fixation intertrochanteric fracture right hip Pre-Op Diagnosis: Displaced intertrochanteric fracture right hip Procedure Performed: Open reduction internal fixation intertrochanteric fracture right hip with [employer] short intramedullary tatyana 11.5 mm with integrated lag screws 100 mm / 95 mm, 37.5 mm distal locking screw Post Op Diagnosis: Same as preoperative diagnosis - Procedure Note Primary Surgeon: Gary Benedict MD Secondary Surgeon: Eli Claudio PAC Anesthesia Provider: Eli Beckham CRNA Anesthesia Technique: Spinal Estimated Blood Loss (mL): 100 Indications: This is a 76-year-old woman with recent fall onto right hip. She describes a mechanical fall, falling on slippery pavement outdoors. She had immediate pain to the right hip and upper thigh, unable to bear weight right leg and was brought to the emergency room. She also has a history of a similar fracture to the opposite left hip that was treated last year with internal fixation. In addition, she has a history of osteoarthritis to both hips left worse than right. Her general health is relatively good, however, she does have hypertension, history of transient ischemic attack, and anemia. Her right leg had marked pain with any attempted movement of right hip, external rotation deformity present The patient has been evaluated by the emergency room physician, hospitalist and myself preoperatively. She has received intravenous fluids and medication to reduce pain to her right hip. Informed consent obtained prior to surgery with discussion about the pros and cons of internal fixation versus hip replacement. It was felt that the safest approach would be a less invasive procedure and less complications, internal fixation with the potential for a second procedure following fracture healing if hip replacement is felt to be necessary on an elective basis. Findings: Displaced intertrochanteric fracture right hip with right hip joint space narrowing but not [id number] Complications: None - Other Other Information/Narrative: After satisfactory spinal anesthesia was achieved, the patient was transferred to the [place] fracture table in the supine position. Boot traction was applied to the Right foot and well-leg celis to the nonoperative Left leg. Traction was applied to the Right leg through the boot with the patella facing superiorly and the hip in a neutral position with regard to abduction and adduction and hip flexion/extension. The C-arm was used to assess the reduction and showed excellent alignment on both AP and lateral views. The Right hip was then prepped and draped in a sterile manner in the usual fashion using a vertical [place] transparent barrier. A 4 to 5 cm incision was made in line with the greater trochanter but proximal to the greater trochanter. The subcutaneous tissue and fascia were split. A starting bone awl was used to engage the trochanteric fossa at its most lateral edge. The starting awl was impacted to lesser trochanter and a long intramedullary guidepin was then inserted. The position of the guidepin was confirmed on both AP and lateral views. Reaming was then carried out with the starting reamer. The 11.5 mm diameter tatyana and guide was then utilized to insert the tatyana through the trochanteric area and pushed distally using C-arm image intensifier with biplanar images. The lag screw guidepin was inserted through a separate incision more distal. This was inserted in the midline in both AP and lateral C arm images of the femoral head. The depth of the guidepin was 105 mm. The compression screw drills were then utilized both short and long. The antirotation bar was inserted. The lag screw reamer was then utilized and placed over the previously inserted guide pin to the appropriate depth. The 100 mm lag screw was inserted and the 95 mm compression screw followed achieving nice compression at the fracture site. The alignment of the fracture was very good on both AP and lateral views as well as the fixation. A third incision was made for the distal locking screw. Bicortical fixation was achieved with a 37.5 mm cortical screw. The wounds were irrigated. The subcutaneous tissue was closed with 2-0 stratofix and the skin was closed with 3-0 Monocryl, Dermabond and dry sterile dressings. There is no deformity to the leg. The patient tolerated the procedure well. She did receive 2 g of Ancef prior to the incision.She also received 1 g of Tranxeamic acid. A physician salon shampoo assistant was medically necessary to help with prepping and draping, positioning, protection of vital structures, assistance during the procedure including wound closure, dressing and/or splinting.
[2022-03-29] MEDS ORDERED: LACTATED RINGERS 1,000 ML IV ONE ×2 (15:34)
[2022-03-29] MEDS ORDERED: oxyCODONE 5 MG TABLET PO PRN (15:38)
[2022-03-29] MEDS ORDERED: DOCUSATE SODIUM 100 MG CAPSULE PO PRN (15:38)
--- NOTE | 2022-03-29 15:53 | PROVIDER PROGRESS NOTE ---
Assessment/Plan - Problem List (1) Intertrochanteric fracture of right hip Qualifiers: Encounter type: subsequent encounter Assessment/Plan: Caused by fall at home. She had successful orthopedic surg today. Today is POD #0. Plan: Will resume diet today Continue pain meds and DVT prophylaxis meds as per Ortho PT and OT to start tomorrow (2) Fall at home Conclusion/Plan: Apparently this was a fall because of an icy surface. Plan: Because of her anemia plus prior history of falls, after surgery we will follow orthostatic vital signs daily. (4) Nonrheumatic aortic valve stenosis with regurgitation Conclusion/Plan: Her EKG showed the same LVH voltage with NSSTT changes, as a year ago. She said she did start going to a police communications operator at [facility]. Plan: We need to watch her fluid balance and BP control, since excessive fluids or high BP may cause CHF. (5) Hypertension Conclusion/Plan: We have resumed her home med which is DILAN inhibitor. Plan: She may need additional doses of IV blood pressure meds since blood pressure could be higher while she is in pain. Qualifiers: Hypertension type: primary hypertension Qualified Code(s): I10 - Essential (primary) hypertension (6) Anemia Conclusion/Plan: She presented mildly anemic, hemoglobin 10 today with a normal MCV. Plan: Will watch CBC daily We will check iron stores and B12 and folate levels and replace if low. (7) Dry eyes I suspect she had tape over both eyes while she had general anesthesia, which caused upper eyelisd swelling and redness when tape pulled off. Plan: Artificial tears have been ordered. - Current Meds Current Meds: Current Medications Generic Name Dose Route Start Last Admin Trade Name [place] PRN Reason Stop Dose Admin Atorvastatin Calcium 40 mg 03/28/22 21:00 03/28/22 21:02 Atorvastatin 40 Mg Tablet PO 40 mg QPM NITO Administration Potassium Chloride/Sodium Chloride 1,000 mls @ 100 mls/hr 03/28/22 17:00 03/29/22 03:24 Normal Saline 0.9% W/20 Meq Kcl IV 100 mls/hr .Q10H NITO Administration Lisinopril 20 mg 03/29/22 09:00 03/29/22 08:41 Lisinopril 20 Mg Tablet PO 20 mg DAILY NITO Administration Ondansetron HCl 4 mg 03/28/22 16:43 03/28/22 17:42 Ondansetron 4 Mg/2 Ml Vial IVP 4 mg Q6HR PRN Administration Nausea / Vomiting Oxycodone HCl 5 mg 03/28/22 16:58 03/29/22 06:05 Oxycodone 5 Mg Tablet PO 5 mg Q4HR PRN Administration Pain 5 to 7 Prochlorperazine Edisylate 10 mg 03/28/22 19:31 03/28/22 20:04 Prochlorperazine 10 Mg/2 Ml Vial IVP 10 mg Q6HR PRN Administration Nausea / Vomiting Sodium Chloride 10 ml 03/28/22 17:00 03/29/22 08:41 Sodium Chloride Flush 0.9% 10 Ml Syringe IVP 10 ml 0100,0900,1700 NITO Administration - Lab Result Fish Bone Diagrams: 03/29/22 05:25 03/28/22 10:29 - Additional Planning My Orders: My Active Orders 03/28/22 16:58 oxyCODONE [Roxicodone] 5 mg PO Q4HR PRN 03/28/22 17:05 Zolpidem [Ambien] 5 mg PO QPM PRN 03/28/22 19:31 Prochlorperazine Inj [Compazine Inj] 10 mg IVP Q6HR PRN 03/28/22 21:00 Atorvastatin [Lipitor] 40 mg PO QPM 03/29/22 Social Work Consult [CONS] Routine 03/29/22 09:00 lisinopriL [Zestril] 20 mg PO DAILY Subjective - Subjective Patient Reports: Other (Postop orthopedic surgery, she complains of very dry eyes and says theupper lids are noticeably swollen and red. Her hip pain is und er control, she just got a pain med.) Objective Vital Signs: Vital Signs - 24 hr 03/28/22 03/28/22 03/28/22 16:00 17:41 18:25 Temperature 36.5 C 36.5 C Heart Rate 86 Heart Rate [ 64 Brachial] Respiratory 16 20 Rate Blood Pressure 150/80 H Blood Pressure 181/78 H 170/64 H [Right Brachial artery] O2 Saturation 98 98 03/28/22 03/29/22 03/29/22 23:51 08:15 15:34 Temperature 37.1 C 36.6 C 36.8 C Heart Rate 80 Heart Rate [ 76 69 Brachial] Respiratory 16 16 18 Rate Blood Pressure 147/92 H Blood Pressure 150/74 H 178/74 H [Right Brachial artery] O2 Saturation 100 99 100 03/29/22 03/29/22 15:40 15:45 Temperature 36.8 C 36.8 C Heart Rate 76 82 Heart Rate [ Brachial] Respiratory 18 18 Rate Blood Pressure 134/96 H 123/96 H Blood Pressure [Right Brachial artery] O2 Saturation 100 100 Oxygen O2 Source Room air I&O (Last 24 Hrs): Intake and Output Totals x24h 03/27/22 03/28/22 03/29/22 23:59 23:59 23:59 Intake Total 500 1868.333 Output Total 200 400 Balance 300 1468.333 General: Alert, Oriented x3, Other (Thin elderly WF.) HEENT: Other (Red and swollen upper eyelids bilaterally. Sclerae appear normal) Neck: Supple, No JVD Neuro: Alert, Non Focal Cardiovascular: Regular rate, No murmurs Respiratory: No respiratory distress, Breath sounds nml Abdomen: Normal bowel sounds, Soft, No tenderness Extremities: No clubbing, No edema - Results Results: Laboratory Results WBC 9.6 x10^3/uL (4.8-10.8) 03/29/22 05:25 RBC 3.66 10^6/uL (4.20-5.40) L 03/29/22 05:25 Hgb 10.7 g/dL (12.0-16.0) L 03/29/22 05:25 Hct 32.6 % (37.0-47.0) L 03/29/22 05:25 MCV 89.1 fL (81.0-99.0) 03/29/22 05:25 MCH 29.2 pg (27.0-31.0) 03/29/22 05:25 MCHC 32.8 g/dL (32.0-36.0) 03/29/22 05:25 RDW 12.9 % (12.0-15.0) 03/29/22 05:25 Plt Count 241 10^3/uL (130-450) 03/29/22 05:25 MPV 10.0 fL (7.9-10.8) 03/29/22 05:25 Neut # (Auto) 7.6 10^3/uL (1.5-6.6) H 03/29/22 05:25 Lymph # (Auto) 1.3 10^3/uL (1.5-3.5) L 03/29/22 05:25 [place] # (Auto) 0.5 10^3/uL (0.0-1.0) 03/29/22 05:25 Eos # (Auto) 0.0 10^3/uL (0.0-0.7) 03/29/22 05:25 Baso # (Auto) 0.0 10^3/uL (0.0-0.1) 03/29/22 05:25 Absolute Nucleated RBC 0.00 x10^3/uL 03/29/22 05:25 Nucleated RBC % 0.0 /100WBC 03/29/22 05:25 PT 11.2 secs (9.9-12.6) 03/28/22 10:29 INR 1.0 (0.8-1.2) 03/28/22 10:29 Sodium 138 mmol/L (135-145) 03/28/22 10:29 Potassium 4.3 mmol/L (3.5-5.0) 03/28/22 10:29 Chloride 102 mmol/L (101-111) 03/28/22 10:29 Carbon Dioxide 28 mmol/L (21-32) 03/28/22 10:29 Anion Gap 8.0 (6-13) 03/28/22 10:29 BUN 19 mg/dL (6-20) 03/28/22 10:29 Creatinine 1.0 mg/dL (0.4-1.0) 03/28/22 10:29 Estimated GFR (MDRD) 54 (>89) L 03/28/22 10:29 Glucose 109 mg/dL (70-100) H 03/28/22 10:29 Calcium 9.4 mg/dL (8.5-10.3) 03/28/22 10:29 Magnesium 2.1 mg/dL (1.7-2.8) 03/28/22 10:29 Total Bilirubin 0.4 mg/dL (0.2-1.0) 03/28/22 10:29 AST 25 IU/L (10-42) 03/28/22 10:29 ALT 21 IU/L (10-60) 03/28/22 10:29 Alkaline Phosphatase 49 IU/L (42-121) 03/28/22 10:29 Total Protein 6.5 g/dL (6.7-8.2) L 03/28/22 10:29 Albumin 3.9 g/dL (3.2-5.5) 03/28/22 10:29 Globulin 2.6 g/dL (2.1-4.2) 03/28/22 10:29 Albumin/Globulin Ratio 1.5 (1.0-2.2) 03/28/22 10:29 Lipase 30 U/L (22-51) 03/28/22 10:29 Nasal Adenovirus (PCR) NOT DETECTED 03/28/22 11:50 Nasal B. parapertussis DNA (PCR) NOT DETECTED 03/28/22 11:50 Nasal Coronavir 229E PCR NOT DETECTED 03/28/22 11:50 Nasal Coronavir HKU1 PCR NOT DETECTED 03/28/22 11:50 Nasal Coronavir NL63 PCR NOT DETECTED 03/28/22 11:50 Nasal Coronavir OC43 PCR NOT DETECTED 03/28/22 11:50 Nasal Enterovir/Rhinovir PCR NOT DETECTED 03/28/22 11:50 Nasal Influenza B PCR NOT DETECTED 03/28/22 11:50 Nasal Influenza A PCR NOT DETECTED 03/28/22 11:50 Nasal Parainfluen 1 PCR NOT DETECTED 03/28/22 11:50 Nasal Parainfluen 2 PCR NOT DETECTED 03/28/22 11:50 Nasal Parainfluen 3 PCR NOT DETECTED 03/28/22 11:50 Nasal Parainfluen 4 PCR NOT DETECTED 03/28/22 11:50 Nasal RSV (PCR) NOT DETECTED 03/28/22 11:50 Nasal B.pertussis DNA PCR NOT DETECTED 03/28/22 11:50 Nasal C.pneumoniae (PCR) NOT DETECTED 03/28/22 11:50 Alex Human Metapneumo PCR NOT DETECTED 03/28/22 11:50 Nasal M.pneumoniae (PCR) NOT DETECTED 03/28/22 11:50 Nasal SARS-CoV-2 (PCR) NOT DETECTED 03/28/22 11:50 - Procedures Procedures: Procedures REPOSITION LEFT RADIUS, EXTERNAL APPROACH (11/30/20) REPOSITION LEFT UPPER FEMUR WITH INT FIX, OPEN APPROACH (11/30/20) TRANSFUSE NONAUT RED BLOOD CELLS IN PERIPH VEIN, PERC (11/30/20)
[2022-03-29] MEDS ORDERED: ONDANSETRON 4 MG/2 ML VIAL ONE (15:58)
[2022-03-29] MEDS: CARBOXYMETHYLCELLULOSE OPHTH DROPS EACHEYE PRN ×2 (18:10→21:17)
--- NOTE | 2022-03-29 20:17 | ANESTHESIA POST OP EVALUATION ---
Anesthesia Post Eval - Post Anesthesia Eval Vitals: Last Vital Signs Temp 36.9 C 03/29/22 20:00 Pulse 88 03/29/22 20:00 Resp 16 03/29/22 20:00 BP 153/72 H 03/29/22 20:00 Pulse Ox 98 03/29/22 20:00 O2 Flow Rate CV Function Including HR & BP: Stable Pain Control: Satisfactory Nausea & Vomiting: Negative Mental Status: Baseline Respiratory Status: Airway Patent Hydration Status: Satisfactory Anesthesia Complications: None
[2022-03-29] MEDS: ACETAMINOPHEN 500 MG TABLET PO SCH (21:12)
[2022-03-29] MEDS: CELECOXIB 100 MG CAPSULE PO SCH (21:13)
[2022-03-29] MEDS: CEFAZOLIN 2G/50ML 0.9% NS 2 GM/50 ML BAG IV SCH (21:13)
[2022-03-29] MEDS: ASPIRIN EC 81 MG TABLET PO SCH (21:13)
[2022-03-29] MEDS: ATORVASTATIN 40 MG TABLET PO SCH (21:13)
[2022-03-30] MEDS: NS W/20 MEQ KCL 1,000 ML IV SCH ×5 (03:06→14:21)
[2022-03-30 05:29] LABS: BASOPHILS % (AUTO) 0.4 %; EOSINOPHILS # (AUTO) 0.1 10^3/uL (0.0-0.7); EOSINOPHILS % (AUTO) 1.2 %; HCT - HEMATOCRIT 25.9 % (37.0-47.0); HGB - HEMOGLOBIN 8.3 g/dL (12.0-16.0); LYMPHOCYTES # (AUTO) 1.3 10^3/uL (1.5-3.5); LYMPHOCYTES % (AUTO) 17.4 %; MEAN CORPUSCULAR HEMOGLOBIN 28.9 pg (27.0-31.0); MEAN CORPUSCULAR VOLUME 90.2 fL (81.0-99.0); MEAN PLATELET VOLUME 9.8 fL (7.9-10.8); MONOCYTES # (AUTO) 0.5 10^3/uL (0.0-1.0); MONOCYTES % (AUTO) 6.6 %; NEUTROPHILS # (AUTO) 5.7 10^3/uL (1.5-6.6); PLT - PLATELET COUNT 191 10^3/uL (130-450); RED BLOOD COUNT 2.87 10^6/uL (4.20-5.40); RED CELL DISTRIBUTION WIDTH 12.9 % (12.0-15.0); WHITE BLOOD COUNT 7.6 x10^3/uL (4.8-10.8)
[2022-03-30] MEDS: ACETAMINOPHEN 500 MG TABLET PO SCH ×3 (05:33→21:20)
[2022-03-30] MEDS: CEFAZOLIN 2G/50ML 0.9% NS 2 GM/50 ML BAG IV SCH (05:34)
[2022-03-30] MEDS: oxyCODONE 5 MG TABLET PO PRN ×4 (05:34→21:20)
[2022-03-30] MEDS: polyethylene glycoL 3350 17 GM PACKET PO SCH (10:25)
[2022-03-30] MEDS: SENNA 8.6 MG TABLET PO SCH (10:26)
[2022-03-30] MEDS: lisinopriL 20 MG TABLET PO SCH (10:27)
[2022-03-30] MEDS: CELECOXIB 100 MG CAPSULE PO SCH (10:27)
[2022-03-30] MEDS: ASPIRIN EC 81 MG TABLET PO SCH ×2 (10:27→21:20)
[2022-03-30] MEDS: DOCUSATE SODIUM 250 MG CAPSULE PO SCH (10:29)
[2022-03-30 11:26] LABS: CALCIUM 7.4 mg/dL (8.5-10.3); CREATININE 0.8 mg/dL (0.4-1.0); POTASSIUM 4.4 mmol/L (3.5-5.0)
[2022-03-30 11:52] LABS: % IRON SATURATION 10 % (20-50); IRON 19 ug/dL (28-170); TOTAL IRON BINDING CAPACITY 185 ug/dL (250-450); TRANSFERRIN 132 mg/dL (192-382)
[2022-03-30 11:54] LABS: FOLATE 7.63 ng/mL (5.90 - >24.8)
[2022-03-30] MEDS: CALCIUM CARB (OYSTER SHELL) 500 MG TABLET PO SCH (12:36)
[2022-03-30] MEDS: CHOLECALCIFEROL 400 UNIT TABLET PO SCH (12:36)
[2022-03-30] MEDS: SODIUM CHLORIDE FLUSH 0.9% 10 ML SYRINGE IVP SCH ×3 (14:33→23:27)
--- NOTE | 2022-03-30 15:27 | PROVIDER PROGRESS NOTE ---
Subjective - General Admit Date: 03/28/22 Procedure Date: 03/29/22 Post Op Days: 1 Procedure Performed: Open reduction internal fixation of right intertrochanteric fracture - Review of Systems Wound/Incisions: positive: Healing well, Dressing dry and intact, No drainage All Other Systems: positive: Reviewed and negative - Other Other Information/Narrative: 76-year-old female sitting up in chair alert and oriented eating breakfast Good appetite No nausea vomiting Has worked with physical therapy with front wheel walker Pain is now well controlled, had some pain with weightbearing yesterday No chest pain, trouble breathing, nausea, vomiting fever or chills Objective - Patient Data Vital Signs: Vital Signs x48h Temp Pulse Resp BP BP BP BP 03/30/22 11:20 36.9 C 69 16 138/63 H 03/30/22 10:45 138/63 H 173/73 H 122/75 03/30/22 07:50 36.5 C 64 16 138/69 H BP Pulse Ox 03/30/22 11:20 97 03/30/22 10:45 181/74 H 03/30/22 07:50 99 Weight: Weight 03/28/22 03/29/22 03/30/22 23:59 23:59 23:59 Weight (kg) 58 kg 58 kg Intake & Output: Intake and Output Totals x24h 03/28/22 03/29/22 03/30/22 23:59 23:59 23:59 Intake Total 500 3625.333 2680 Output Total 200 575 750 Balance 300 3050.333 1930 - Lab Results Lab Results: 03/30/22 05:18 03/30/22 05:30 Other Lab Results: Lab Results x24hrs 03/30/22 03/30/22 03/30/22 Range/Units 05:30 05:30 05:30 WBC (4.8-10.8) x10^3/uL RBC (4.20-5.40) 10^6/uL Hgb (12.0-16.0) g/dL Hct (37.0-47.0) % MCV (81.0-99.0) fL MCH (27.0-31.0) pg MCHC (32.0-36.0) g/dL RDW (12.0-15.0) % Plt Count (130-450) 10^3/uL MPV (7.9-10.8) fL Neut # (Auto) (1.5-6.6) 10^3/uL Lymph # (Auto) (1.5-3.5) 10^3/uL [place] # (Auto) (0.0-1.0) 10^3/uL Eos # (Auto) (0.0-0.7) 10^3/uL Baso # (Auto) (0.0-0.1) 10^3/uL Absolute Nucleated RBC x10^3/uL Nucleated RBC % /100WBC Sodium 130 L (135-145) mmol/L Potassium 4.4 (3.5-5.0) mmol/L Chloride 102 (101-111) mmol/L Carbon Dioxide 24 (21-32) mmol/L Anion Gap 4.0 L (6-13) BUN 14 (6-20) mg/dL Creatinine 0.8 (0.4-1.0) mg/dL Estimated GFR (MDRD) 70 L (>89) Glucose 113 H (70-100) mg/dL Calcium 7.4 L (8.5-10.3) mg/dL Iron 19 L (28-170) ug/dL TIBC 185 L (250-450) ug/dL % Saturation 10 L (20-50) % Transferrin 132 L (192-382) mg/dL Vitamin B12 1079 H (180-914) pg/mL Folate 7.63 (5.90 - >24.8) ng/mL 03/30/22 Range/Units 05:18 WBC 7.6 (4.8-10.8) x10^3/uL RBC 2.87 L (4.20-5.40) 10^6/uL Hgb 8.3 L (12.0-16.0) g/dL Hct 25.9 L (37.0-47.0) % MCV 90.2 (81.0-99.0) fL MCH 28.9 (27.0-31.0) pg MCHC 32.0 (32.0-36.0) g/dL RDW 12.9 (12.0-15.0) % Plt Count 191 (130-450) 10^3/uL MPV 9.8 (7.9-10.8) fL Neut # (Auto) 5.7 (1.5-6.6) 10^3/uL Lymph # (Auto) 1.3 L (1.5-3.5) 10^3/uL [place] # (Auto) 0.5 (0.0-1.0) 10^3/uL Eos # (Auto) 0.1 (0.0-0.7) 10^3/uL Baso # (Auto) 0.0 (0.0-0.1) 10^3/uL Absolute Nucleated RBC 0.00 x10^3/uL Nucleated RBC % 0.0 /100WBC Sodium (135-145) mmol/L Potassium (3.5-5.0) mmol/L Chloride (101-111) mmol/L Carbon Dioxide (21-32) mmol/L Anion Gap (6-13) BUN (6-20) mg/dL Creatinine (0.4-1.0) mg/dL Estimated GFR (MDRD) (>89) Glucose (70-100) mg/dL Calcium (8.5-10.3) mg/dL Iron (28-170) ug/dL TIBC (250-450) ug/dL % Saturation (20-50) % Transferrin (192-382) mg/dL Vitamin B12 (180-914) pg/mL Folate (5.90 - >24.8) ng/mL - Current Medications Current Medications: Current Medications Generic Name Dose Route Start Last Admin Trade Name Freq PRN Reason Stop Dose Admin Acetaminophen 1,000 mg 03/29/22 22:00 03/30/22 14:18 Acetaminophen 500 Mg Tablet PO 1,000 mg TID NITO Administration Aspirin 81 mg 03/29/22 21:00 03/30/22 10:27 Aspirin Ec 81 Mg Tablet PO 81 mg BID NITO Administration Atorvastatin Calcium 40 mg 03/28/22 21:00 03/29/22 21:13 Atorvastatin 40 Mg Tablet PO 40 mg QPM NITO Administration Calcium Carbonate/Glycine 500 mg 03/30/22 12:00 03/30/22 12:36 Calcium Carb ([place]yster Shell) 500 Mg Tablet PO 500 mg DAILY NITO Administration Carboxymethylcellulose 1 drops 03/29/22 17:25 03/29/22 21:17 Carboxymethylcellulose Ophth Drops EACHEYE 1 drops PRN PRN Administration Dry Eye Cholecalciferol 800 unit 03/30/22 12:00 03/30/22 12:36 Cholecalciferol 400 Unit Tablet PO 800 unit DAILY NITO Administration Docusate Sodium 100 mg 03/29/22 15:38 03/30/22 10:27 Docusate Sodium 100 Mg Capsule PO 100 mg BID PRN Administration Constipation Docusate Sodium 250 - 500 mg 03/30/22 09:00 03/30/22 10:29 Docusate Sodium 250 Mg Capsule PO 250 mg DAILY NITO Administration Lisinopril 20 mg 03/29/22 09:00 03/30/22 10:27 Lisinopril 20 Mg Tablet PO 20 mg DAILY NITO Administration Ondansetron HCl 4 mg 03/28/22 16:43 03/28/22 17:42 Ondansetron 4 Mg/2 Ml Vial IVP 4 mg Q6HR PRN Administration Nausea / Vomiting Oxycodone HCl 5 mg 03/28/22 16:58 03/30/22 10:37 Oxycodone 5 Mg Tablet PO 5 mg Q4HR PRN Administration Pain 5 to 7 Polyethylene Glycol 17 gm 03/30/22 09:00 03/30/22 10:25 Polyethylene Glycol 3350 17 Gm Packet PO 17 gm DAILY NITO Administration Prochlorperazine Edisylate 10 mg 03/28/22 19:31 03/28/22 20:04 Prochlorperazine 10 Mg/2 Ml Vial IVP 10 mg Q6HR PRN Administration Nausea / Vomiting Senna 8.6 - 17.2 mg 03/30/22 09:00 03/30/22 10:26 Senna 8.6 Mg Tablet PO 8.6 mg DAILY [facility] Administration Sodium Chloride 10 ml 03/28/22 17:00 03/30/22 14:33 Sodium Chloride Flush 0.9% 10 Ml Syringe IVP Not Given 0100,0900,1700 [facility] - Physical Exam Wound/Incisions: positive: Healing well, Dressing dry and intact, No drainage. negative: Erythema General Appearance: positive: No acute distress, Alert Skin: positive: Color nml, No rash, Warm, Dry. negative: Diaphoresis Extremities: positive: Non-tender, Nml appearance Neurologic/Psychiatric: positive: Oriented x3 Comments/Other: Femoral and Sciatic Nerve Intact Neurovascularly Intact to the Right lower extremity No drainage or erythema about surgical site Mepelex dressing in place Impression/Plan - Problem List Problem List: 76-year-old female who is postoperative day 1 from open reduction internal fixation for a right intertrochanteric femur fracture completed by Dr. Benedict at [facility] on 03/29/2022. She has a past medical history of nonrheumatic aortic valve stenosis with regurgitation, hypertension and anemia. Plan: -Weightbearing as tolerated with front wheel walker to right lower extremity -Physical therapy and Occupational Therapy ordered, pending evaluation -Multimodal pain control with Tylenol, oxycodone 5 mg and IV fentanyl -Regular diet, can discontinue IV fluids when tolerating oral intake without nausea and vomiting -DVT prophylaxis with SCDs and 81 mg of aspirin twice daily for 6 weeks -Discontinue Sherman catheter -Hemoglobin 8.3 today. Recheck hemoglobin tomorrow -Post-operative antibiotics completed -Appreciate hospitalist input on managing chronic medical comorbidities including nonrheumatic aortic valve stenosis with regurgitation, anemia and hypertension. - Mepilex dressing to remain in place while in hospital - Follow up in orthopedic clinic within 1 week of hospital discharge - Disposition likely home with home health per social work today - Will likely be ready for discharge from an orthopedic perspective on Sunday 04/01
--- NOTE | 2022-03-30 18:47 | PROVIDER PROGRESS NOTE ---
Assessment/Plan - Problem List (1) Intertrochanteric fracture of right hip Qualifiers: Encounter type: subsequent encounter Assessment/Plan: Caused by fall at home. She had successful orthopedic surg on 03/29. Today is POD #1. Plan: Continue pain meds and DVT prophylaxis meds as per Ortho PT and OT to start (2) Fall at home Conclusion/Plan: Apparently this was a fall because of an icy surface. Plan: Because of her anemia plus prior history of falls, after surgery we will follow orthostatic vital signs daily. (3) Nonrheumatic aortic valve stenosis with regurgitation Conclusion/Plan: Her EKG showed the same LVH voltage with NSSTT changes, as a year ago. She said she did start going to a emergency medicine medical director at [facility]. Plan: We need to watch her fluid balance and BP control, since excessive fluids or high BP may cause CHF. (4) Hypertension Conclusion/Plan: We have resumed her home med which is DILAN inhibitor. Plan: She may need additional doses of IV blood pressure meds since blood pressure could be higher while she is in pain. Qualifiers: Hypertension type: primary hypertension Qualified Code(s): I10 - Essential (primary) hypertension (5) Anemia Conclusion/Plan: She presented mildly anemic, hemoglobin 10 today with a normal MCV. Plan: Will watch CBC daily We will check iron stores and B12 and folate levels and replace if low. (6) Dry eyes Improved. I suspect she had tape over both eyes while she had general anesthesia, which caused upper eyelisd swelling and redness when tape pulled off. Plan: Artificial tears have been ordered. - Current Meds Current Meds: Current Medications Generic Name Dose Route Start Last Admin Trade Name Florinda PRN Reason Stop Dose Admin Acetaminophen 1,000 mg 03/29/22 22:00 03/30/22 14:18 Acetaminophen 500 Mg Tablet PO 1,000 mg TID NITO Administration Aspirin 81 mg 03/29/22 21:00 03/30/22 10:27 Aspirin Ec 81 Mg Tablet PO 81 mg BID NITO Administration Atorvastatin Calcium 40 mg 03/28/22 21:00 03/29/22 21:13 Atorvastatin 40 Mg Tablet PO 40 mg QPM NITO Administration Calcium Carbonate/Glycine 500 mg 03/30/22 12:00 03/30/22 12:36 Calcium Carb (Oyster Shell) 500 Mg Tablet PO 500 mg DAILY NITO Administration Carboxymethylcellulose 1 drops 03/29/22 17:25 03/29/22 21:17 Carboxymethylcellulose Ophth Drops EACHEYE 1 drops PRN PRN Administration Dry Eye Cholecalciferol 800 unit 03/30/22 12:00 03/30/22 12:36 Cholecalciferol 400 Unit Tablet PO 800 unit DAILY NITO Administration Docusate Sodium 250 - 500 mg 03/30/22 09:00 03/30/22 10:29 Docusate Sodium 250 Mg Capsule PO 250 mg DAILY NITO Administration Lisinopril 20 mg 03/29/22 09:00 03/30/22 10:27 Lisinopril 20 Mg Tablet PO 20 mg DAILY NITO Administration Ondansetron HCl 4 mg 03/28/22 16:43 03/28/22 17:42 Ondansetron 4 Mg/2 Ml Vial IVP 4 mg Q6HR PRN Administration Nausea / Vomiting Oxycodone HCl 5 mg 03/28/22 16:58 03/30/22 16:23 Oxycodone 5 Mg Tablet PO 2.5 mg Q4HR PRN Administration Pain 5 to 7 Polyethylene Glycol 17 gm 03/30/22 09:00 03/30/22 10:25 Polyethylene Glycol 3350 17 Gm Packet PO 17 gm DAILY NITO Administration Prochlorperazine Edisylate 10 mg 03/28/22 19:31 03/28/22 20:04 Prochlorperazine 10 Mg/2 Ml Vial IVP 10 mg Q6HR PRN Administration Nausea / Vomiting Senna 8.6 - 17.2 mg 03/30/22 09:00 03/30/22 10:26 Senna 8.6 Mg Tablet PO 8.6 mg DAILY NITO Administration Sodium Chloride 10 ml 03/28/22 17:00 03/30/22 16:24 Sodium Chloride Flush 0.9% 10 Ml Syringe IVP Not Given 0100,0900,1700 NITO - Lab Result Fish Bone Diagrams: 03/30/22 05:18 03/30/22 05:30 - Additional Planning My Orders: My Active Orders 03/30/22 12:00 Calcium Carb (Oyster Shell) [Oysco-500] 500 mg PO DAILY Cholecalciferol [Vitamin D3] 800 unit PO DAILY Subjective - Subjective Patient Reports: Feeling Better (Pain under control) Objective Vital Signs: Vital Signs - 24 hr 03/29/22 03/30/22 03/30/22 20:00 00:00 05:34 Temperature 36.9 C 37.2 C 36.7 C Heart Rate [ 88 67 70 Brachial] Respiratory 16 14 15 Rate Blood Pressure [Activity] Blood Pressure 165/73 H [Left Brachial artery] Blood Pressure 153/72 H 143/69 H [Right Brachial artery] Blood Pressure [Sitting] Blood Pressure [Standing] Blood Pressure [Supine] O2 Saturation 98 95 97 03/30/22 03/30/22 03/30/22 06:40 07:50 10:45 Temperature 36.5 C Heart Rate [ 72 64 Brachial] Respiratory 16 Rate Blood Pressure 138/63 H [Activity] Blood Pressure [Left Brachial artery] Blood Pressure 147/74 H 138/69 H [Right Brachial artery] Blood Pressure 173/73 H [Sitting] Blood Pressure 122/75 [Standing] Blood Pressure 181/74 H [Supine] O2 Saturation 99 03/30/22 03/30/22 11:20 15:47 Temperature 36.9 C 37.2 C Heart Rate [ 69 75 Brachial] Respiratory 16 16 Rate Blood Pressure [Activity] Blood Pressure [Left Brachial artery] Blood Pressure 138/63 H 157/80 H [Right Brachial artery] Blood Pressure [Sitting] Blood Pressure [Standing] Blood Pressure [Supine] O2 Saturation 97 99 Oxygen O2 Source Room air I&O (Last 24 Hrs): Intake and Output Totals x24h 03/28/22 03/29/22 03/30/22 23:59 23:59 23:59 Intake Total 500 3625.333 2880 Output Total 200 575 750 Balance 300 3050.333 2130 General: Alert, Oriented x3 HEENT: Mucous membr. moist/pink Neck: Supple Neuro: Non Focal Cardiovascular: Regular rate Respiratory: No respiratory distress Abdomen: Soft Extremities: No edema - Results Results: Laboratory Results WBC 7.6 x10^3/uL (4.8-10.8) 03/30/22 05:18 RBC 2.87 10^6/uL (4.20-5.40) L 03/30/22 05:18 Hgb 8.3 g/dL (12.0-16.0) L 03/30/22 05:18 Hct 25.9 % (37.0-47.0) L 03/30/22 05:18 MCV 90.2 fL (81.0-99.0) 03/30/22 05:18 MCH 28.9 pg (27.0-31.0) 03/30/22 05:18 MCHC 32.0 g/dL (32.0-36.0) 03/30/22 05:18 RDW 12.9 % (12.0-15.0) 03/30/22 05:18 Plt Count 191 10^3/uL (130-450) 03/30/22 05:18 MPV 9.8 fL (7.9-10.8) 03/30/22 05:18 Neut # (Auto) 5.7 10^3/uL (1.5-6.6) 03/30/22 05:18 Lymph # (Auto) 1.3 10^3/uL (1.5-3.5) L 03/30/22 05:18 [place] # (Auto) 0.5 10^3/uL (0.0-1.0) 03/30/22 05:18 Eos # (Auto) 0.1 10^3/uL (0.0-0.7) 03/30/22 05:18 Baso # (Auto) 0.0 10^3/uL (0.0-0.1) 03/30/22 05:18 Absolute Nucleated RBC 0.00 x10^3/uL 03/30/22 05:18 Nucleated RBC % 0.0 /100WBC 03/30/22 05:18 PT 11.2 secs (9.9-12.6) 03/28/22 10:29 INR 1.0 (0.8-1.2) 03/28/22 10:29 Sodium 130 mmol/L (135-145) L 03/30/22 05:30 Potassium 4.4 mmol/L (3.5-5.0) 03/30/22 05:30 Chloride 102 mmol/L (101-111) 03/30/22 05:30 Carbon Dioxide 24 mmol/L (21-32) 03/30/22 05:30 Anion Gap 4.0 (6-13) L 03/30/22 05:30 BUN 14 mg/dL (6-20) 03/30/22 05:30 Creatinine 0.8 mg/dL (0.4-1.0) 03/30/22 05:30 Estimated GFR (MDRD) 70 (>89) L 03/30/22 05:30 Glucose 113 mg/dL (70-100) H 03/30/22 05:30 Calcium 7.4 mg/dL (8.5-10.3) L 03/30/22 05:30 Magnesium 2.1 mg/dL (1.7-2.8) 03/28/22 10:29 Iron 19 ug/dL (28-170) L 03/30/22 05:30 TIBC 185 ug/dL (250-450) L 03/30/22 05:30 % Saturation 10 % (20-50) L 03/30/22 05:30 Transferrin 132 mg/dL (192-382) L 03/30/22 05:30 Total Bilirubin 0.4 mg/dL (0.2-1.0) 03/28/22 10:29 AST 25 IU/L (10-42) 03/28/22 10:29 ALT 21 IU/L (10-60) 03/28/22 10:29 Alkaline Phosphatase 49 IU/L (42-121) 03/28/22 10:29 Total Protein 6.5 g/dL (6.7-8.2) L 03/28/22 10:29 Albumin 3.9 g/dL (3.2-5.5) 03/28/22 10:29 Globulin 2.6 g/dL (2.1-4.2) 03/28/22 10:29 Albumin/Globulin Ratio 1.5 (1.0-2.2) 03/28/22 10:29 Lipase 30 U/L (22-51) 03/28/22 10:29 Vitamin B12 1079 pg/mL (180-914) H 03/30/22 05:30 Folate 7.63 ng/mL (5.90 - >24.8) 03/30/22 05:30 Nasal Adenovirus (PCR) NOT DETECTED 03/28/22 11:50 Nasal B. parapertussis DNA (PCR) NOT DETECTED 03/28/22 11:50 Nasal Coronavir 229E PCR NOT DETECTED 03/28/22 11:50 Nasal Coronavir HKU1 PCR NOT DETECTED 03/28/22 11:50 Nasal Coronavir NL63 PCR NOT DETECTED 03/28/22 11:50 Nasal Coronavir OC43 PCR NOT DETECTED 03/28/22 11:50 Nasal Enterovir/Rhinovir PCR NOT DETECTED 03/28/22 11:50 Nasal Influenza B PCR NOT DETECTED 03/28/22 11:50 Nasal Influenza A PCR NOT DETECTED 03/28/22 11:50 Nasal Parainfluen 1 PCR NOT DETECTED 03/28/22 11:50 Nasal Parainfluen 2 PCR NOT DETECTED 03/28/22 11:50 Nasal Parainfluen 3 PCR NOT DETECTED 03/28/22 11:50 Nasal Parainfluen 4 PCR NOT DETECTED 03/28/22 11:50 Nasal RSV (PCR) NOT DETECTED 03/28/22 11:50 Nasal B.pertussis DNA PCR NOT DETECTED 03/28/22 11:50 Nasal C.pneumoniae (PCR) NOT DETECTED 03/28/22 11:50 Alex Human Metapneumo PCR NOT DETECTED 03/28/22 11:50 Nasal M.pneumoniae (PCR) NOT DETECTED 03/28/22 11:50 Nasal SARS-CoV-2 (PCR) NOT DETECTED 03/28/22 11:50 - Procedures Procedures: Procedures REPOSITION LEFT RADIUS, EXTERNAL APPROACH (11/30/20) REPOSITION LEFT UPPER FEMUR WITH INT FIX, OPEN APPROACH (11/30/20) TRANSFUSE NONAUT RED BLOOD CELLS IN PERIPH VEIN, PERC (11/30/20)
[2022-03-30] MEDS: ATORVASTATIN 40 MG TABLET PO SCH (21:20)
[2022-03-30] MEDS: ZOLPIDEM 5 MG TABLET PO PRN (23:27)
[2022-03-31] MEDS: ACETAMINOPHEN 500 MG TABLET PO SCH ×3 (05:31→21:25)
[2022-03-31] MEDS: SODIUM CHLORIDE FLUSH 0.9% 10 ML SYRINGE IVP SCH ×3 (05:32→18:45)
[2022-03-31] MEDS: oxyCODONE 5 MG TABLET PO PRN ×2 (05:45→09:33)
[2022-03-31 05:50] LABS: BASOPHILS % (AUTO) 0.5 %; EOSINOPHILS # (AUTO) 0.2 10^3/uL (0.0-0.7); EOSINOPHILS % (AUTO) 3.5 %; HCT - HEMATOCRIT 25.8 % (37.0-47.0); HGB - HEMOGLOBIN 8.4 g/dL (12.0-16.0); LYMPHOCYTES # (AUTO) 1.2 10^3/uL (1.5-3.5); LYMPHOCYTES % (AUTO) 17.5 %; MEAN CORPUSCULAR HEMOGLOBIN 29.5 pg (27.0-31.0); MEAN CORPUSCULAR HGB CONC 32.6 g/dL (32.0-36.0); MEAN CORPUSCULAR VOLUME 90.5 fL (81.0-99.0); MONOCYTES # (AUTO) 0.4 10^3/uL (0.0-1.0); MONOCYTES % (AUTO) 6.3 %; NEUTROPHILS # (AUTO) 4.8 10^3/uL (1.5-6.6); NEUTROPHILS % (AUTO) 71.9 %; PLT - PLATELET COUNT 209 10^3/uL (130-450); RED BLOOD COUNT 2.85 10^6/uL (4.20-5.40); WHITE BLOOD COUNT 6.6 x10^3/uL (4.8-10.8)
[2022-03-31] MEDS: polyethylene glycoL 3350 17 GM PACKET PO SCH (08:12)
[2022-03-31] MEDS: SENNA 8.6 MG TABLET PO SCH ×3 (08:13→18:45)
[2022-03-31] MEDS: FERROUS GLUCONATE 324 MG TABLET PO SCH (08:13)
[2022-03-31] MEDS: ASPIRIN EC 81 MG TABLET PO SCH ×2 (08:13→21:26)
[2022-03-31] MEDS: CALCIUM CARB (OYSTER SHELL) 500 MG TABLET PO SCH (08:13)
[2022-03-31] MEDS: lisinopriL 20 MG TABLET PO SCH (08:13)
[2022-03-31] MEDS: CHOLECALCIFEROL 400 UNIT TABLET PO SCH (08:13)
[2022-03-31] MEDS: DOCUSATE SODIUM 250 MG CAPSULE PO SCH ×2 (08:13→18:45)
--- NOTE | 2022-03-31 09:37 | PROVIDER PROGRESS NOTE ---
Subjective - General Admit Date: 03/28/22 Procedure Date: 03/29/22 Post Op Days: 2 Procedure Performed: Open reduction internal fixation of right intertrochanteric fracture - Review of Systems Wound/Incisions: positive: Healing well, Dressing dry and intact. negative: Erythema General: positive: No symptoms. negative: Fever, Weakness All Other Systems: positive: Reviewed and negative - Other Other Information/Narrative: Alert and oriented Sitting up in bed eating breakfast Reports pain is well controlled Sherman catheter removed, purewick in place Increased appetite without nausea or vomiting No chest pain, fever or dyspnea Objective - Patient Data Vital Signs: Vital Signs x48h Temp Pulse Resp BP Pulse Ox 03/31/22 07:51 36.4 C L 71 18 167/72 H 99 03/31/22 03:27 36.6 C 72 16 156/76 H 97 Weight: Weight 03/29/22 03/30/22 03/31/22 23:59 23:59 23:59 Weight (kg) 58 kg Intake & Output: Intake and Output Totals x24h 03/29/22 03/30/22 03/31/22 23:59 23:59 23:59 Intake Total 3625.333 4296 250 Output Total 575 1650 650 Balance 3050.333 2646 -400 - Lab Results Lab Results: 03/31/22 05:33 03/30/22 05:30 Other Lab Results: Lab Results x24hrs 03/31/22 03/30/22 03/30/22 Range/Units 05:33 05:30 05:30 WBC 6.6 (4.8-10.8) x10^3/uL RBC 2.85 L (4.20-5.40) 10^6/uL Hgb 8.4 L (12.0-16.0) g/dL Hct 25.8 L (37.0-47.0) % MCV 90.5 (81.0-99.0) fL MCH 29.5 (27.0-31.0) pg MCHC 32.6 (32.0-36.0) g/dL RDW 13.0 (12.0-15.0) % Plt Count 209 (130-450) 10^3/uL MPV 10.0 (7.9-10.8) fL Neut # (Auto) 4.8 (1.5-6.6) 10^3/uL Lymph # (Auto) 1.2 L (1.5-3.5) 10^3/uL [place] # (Auto) 0.4 (0.0-1.0) 10^3/uL Eos # (Auto) 0.2 (0.0-0.7) 10^3/uL Baso # (Auto) 0.0 (0.0-0.1) 10^3/uL Absolute Nucleated RBC 0.00 x10^3/uL Nucleated RBC % 0.0 /100WBC Sodium 130 L (135-145) mmol/L Potassium 4.4 (3.5-5.0) mmol/L Chloride 102 (101-111) mmol/L Carbon Dioxide 24 (21-32) mmol/L Anion Gap 4.0 L (6-13) BUN 14 (6-20) mg/dL Creatinine 0.8 (0.4-1.0) mg/dL Estimated GFR (MDRD) 70 L (>89) Glucose 113 H (70-100) mg/dL Calcium 7.4 L (8.5-10.3) mg/dL Iron (28-170) ug/dL TIBC (250-450) ug/dL % Saturation (20-50) % Transferrin (192-382) mg/dL Vitamin B12 1079 H (180-914) pg/mL Folate 7.63 (5.90 - >24.8) ng/mL 03/30/22 Range/Units 05:30 WBC (4.8-10.8) x10^3/uL RBC (4.20-5.40) 10^6/uL Hgb (12.0-16.0) g/dL Hct (37.0-47.0) % MCV (81.0-99.0) fL MCH (27.0-31.0) pg MCHC (32.0-36.0) g/dL RDW (12.0-15.0) % Plt Count (130-450) 10^3/uL MPV (7.9-10.8) fL Neut # (Auto) (1.5-6.6) 10^3/uL Lymph # (Auto) (1.5-3.5) 10^3/uL [place] # (Auto) (0.0-1.0) 10^3/uL Eos # (Auto) (0.0-0.7) 10^3/uL Baso # (Auto) (0.0-0.1) 10^3/uL Absolute Nucleated RBC x10^3/uL Nucleated RBC % /100WBC Sodium (135-145) mmol/L Potassium (3.5-5.0) mmol/L Chloride (101-111) mmol/L Carbon Dioxide (21-32) mmol/L Anion Gap (6-13) BUN (6-20) mg/dL Creatinine (0.4-1.0) mg/dL Estimated GFR (MDRD) (>89) Glucose (70-100) mg/dL Calcium (8.5-10.3) mg/dL Iron 19 L (28-170) ug/dL TIBC 185 L (250-450) ug/dL % Saturation 10 L (20-50) % Transferrin 132 L (192-382) mg/dL Vitamin B12 (180-914) pg/mL Folate (5.90 - >24.8) ng/mL - Current Medications Current Medications: Current Medications Generic Name Dose Route Start Last Admin Trade Name Freq PRN Reason Stop Dose Admin Acetaminophen 1,000 mg 03/29/22 22:00 03/31/22 05:31 Acetaminophen 500 Mg Tablet PO 1,000 mg TID NITO Administration Aspirin 81 mg 03/29/22 21:00 03/31/22 08:13 Aspirin Ec 81 Mg Tablet PO 81 mg BID NITO Administration Atorvastatin Calcium 40 mg 03/28/22 21:00 03/30/22 21:20 Atorvastatin 40 Mg Tablet PO 40 mg QPM NITO Administration Calcium Carbonate/Glycine 500 mg 03/30/22 12:00 03/31/22 08:13 Calcium Carb (Oyster Shell) 500 Mg Tablet PO 500 mg DAILY NITO Administration Carboxymethylcellulose 1 drops 03/29/22 17:25 03/29/22 21:17 Carboxymethylcellulose Ophth Drops EACHEYE 1 drops PRN PRN Administration Dry Eye Cholecalciferol 800 unit 03/30/22 12:00 03/31/22 08:13 Cholecalciferol 400 Unit Tablet PO 800 unit DAILY NITO Administration Docusate Sodium 250 - 500 mg 03/30/22 09:00 03/31/22 08:13 Docusate Sodium 250 Mg Capsule PO 500 mg DAILY NITO Administration Ferrous Gluconate 324 mg 03/31/22 08:00 03/31/22 08:13 Ferrous Gluconate 324 Mg Tablet PO 324 mg DAILYWM NITO Administration Lisinopril 20 mg 03/29/22 09:00 03/31/22 08:13 Lisinopril 20 Mg Tablet PO 20 mg DAILY NITO Administration Ondansetron HCl 4 mg 03/28/22 16:43 03/28/22 17:42 Ondansetron 4 Mg/2 Ml Vial IVP 4 mg Q6HR PRN Administration Nausea / Vomiting Oxycodone HCl 5 mg 03/28/22 16:58 03/31/22 09:33 Oxycodone 5 Mg Tablet PO 5 mg Q4HR PRN Administration Pain 5 to 7 Polyethylene Glycol 17 gm 03/30/22 09:00 03/31/22 08:12 Polyethylene Glycol 3350 17 Gm Packet PO 17 gm DAILY NITO Administration Prochlorperazine Edisylate 10 mg 03/28/22 19:31 03/28/22 20:04 Prochlorperazine 10 Mg/2 Ml Vial IVP 10 mg Q6HR PRN Administration Nausea / Vomiting Senna 8.6 - 17.2 mg 03/30/22 09:00 03/31/22 08:13 Senna 8.6 Mg Tablet PO 17.2 mg DAILY NITO Administration Sodium Chloride 10 ml 03/28/22 17:00 03/31/22 05:32 Sodium Chloride Flush 0.9% 10 Ml Syringe IVP 10 ml 0100,0900,1700 [facility] Administration Zolpidem Tartrate 5 mg 03/28/22 17:05 03/30/22 23:27 Zolpidem 5 Mg Tablet PO 5 mg QPM PRN Administration Insomnia - Physical Exam Wound/Incisions: positive: Healing well, Dressing dry and intact (small dried sanginous spot on mepelex) General Appearance: positive: No acute distress, Alert Skin: positive: Color nml, No rash, Warm, Dry Extremities: positive: Nml appearance Neurologic/Psychiatric: positive: Oriented x3 Comments/Other: sciatic and femoral nerve in tact Neurovascularly intact to right lower extremity No hematoma or erythema about the incision site Impression/Plan - Problem List Problem List: 76-year-old female who is postoperative day 2 from an open reduction internal fixation of the right hip for a right intertrochanteric fracture of the femur. She continues to improve with pain that is well controlled and good appetite. She has no nausea or vomiting and is working with physical therapy without concern. Plan: -Discharge likely tomorrow 04/01/2022 to home -Patient like to proceed with outpatient physical therapy and Occupational Therapy instead of home health -Weightbearing status of weightbearing as tolerated with front wheeled walker at all times -Mepilex dressing to remain in place until follow-up in orthopedic office -Pain control with Tylenol and oxycodone as needed. Discontinued IV fentanyl -Regular diet, no IV fluids needed - Bowel regimen ordered with opioid pain management - DVT prophylaxis with 81 mg aspirin twice daily -Appreciate hospitalist management of hypertension, anemia, nonrheumatic aortic stenosis with regurgitation
--- NOTE | 2022-03-31 09:48 | Discharge Plan ---
Discharge Plan Problem Reviewed?: Yes Diet: Regular Activity Restrictions: Wt Bearing as Tolerated Shower Restrictions: No Driving Restrictions: Yes (No driving until cleared by your orthopedic surgeon) Assistance Devices: Walker Weight Bearing: Full Weight Follow-Up Care: Home Health - PT, Home Health - OT No Smoking: If you smoke, Please STOP! Call for help. Disposition: Home Health Service Condition: Stable Prescriptions: oxyCODONE [Roxicodone] 5 mg PO Q4HR PRN #10 tab PRN Reason: Pain 5 to 7 Ferrous Gluconate [Fergon] 324 mg PO DAILYWM #30 tab Health Concerns: You were admitted to the hospital for a right hip fracture with a successful surgery this week You are at risk of falling again after surgery, please use a walker at all times when walking and moving You are going to be discharged home with home health services including physical and occupational therapy You need to follow up in the orthopedic clinic within 1 week of discharge Please call the office with any questions or concerns [phone] Follow up with your primary care provider regarding blood pressure management and anemia Leave the mepelex dressing in place until your follow up visit with Dr. Benedict You have absorable sutures in place secured with medical grade glue under the dressing Please resume all of your home medications with the addition of aspirin, tylenol and oxycodone Take 81 mg of aspirin two times daily for blood clot prevention for 6 weeks Take 1 tablet of 500 mg Tylenol every 4 hours until your follow up visit Take 5 mg of oxycodone as needed every 6 hours for break through pain after taking scheduled tylenol and ibuprofen Plan of Treatment: You had a successful operation for your hip fracture without complications You blood pressure was controlled medically Your anemia was monitored without need for transfusion Care Goals: Return to pre-injury weight bearing and ambulating with assist of physical therapy and front wheeled walker Assessment: Patient verbalizes understanding of her discharge plan and is agreement. A written copy of these instructions were provided as a reminder when at home after discharge. Follow-up with: Timi Christensen MD [Primary Care Provider] -
--- NOTE | 2022-03-31 09:58 | DISCHARGE SUMMARY ---
"<Elma Jones - Last Filed: 03/31/22 11:08> Discharge Summary Condition at Discharge: Stable Discharge Disposition: Home Health Service - ALLERGIES Allergies/Adverse Reactions: Allergies Allergy/AdvReac Type Severity Reaction Status Date / Time hydromorphone AdvReac Nausea Verified 03/29/22 10:34 - MEDICATIONS Home Medications: Ambulatory Orders Medication Instructions Recorded Confirmed Benazepril HCl [Lotensin] 20 mg PO DAILY 12/01/20 03/29/22 Rosuvastatin Calcium [Crestor] 20 mg PO QPM 12/01/20 03/29/22 Acetaminophen [Tylenol] 650 mg PO Q4HR PRN tablet 12/06/20 03/29/22 Ascorbic Acid [Vitamin C] 500 mg PO DAILY tablet 12/06/20 03/29/22 Cholecalciferol [Vitamin D3] 50 mcg PO DAILY tablet 12/06/20 03/29/22 Alendronate Sodium 1 tab PO Q7D 03/29/22 03/29/22 Calcium Carbonate/Vitamin D3 1 tab PO DAILY 03/29/22 03/29/22 [Calcium 600-Vit D3 200 Tablet] Famciclovir 1 tab PO Q48H 03/29/22 03/29/22 Zolpidem Tartrate [Zolpidem 6.25 mg PO HS 03/29/22 03/29/22 Tartrate ER] amLODIPine [Norvasc] 1 tab PO DAILY 03/29/22 03/29/22 Acetaminophen [Tylenol] 1,000 mg PO TID tab 04/01/22 Aspirin EC [Ecotrin] 81 mg PO BID tab 04/01/22 Calcium Carb (Oyster Shell) 500 mg PO DAILY tab 04/01/22 [Oysco-500] Cholecalciferol [Vitamin D3] 800 unit PO DAILY tab 04/01/22 Ferrous Gluconate [Fergon] 324 mg PO DAILYWM #30 tab 04/01/22 oxyCODONE [Roxicodone] 5 mg PO Q4HR PRN #10 tab 04/01/22 - LABS Result Diagrams: 03/31/22 05:33 03/30/22 05:30 <Eli Claudio - Last Filed: 04/01/22 10:50> Discharge Summary Admit Date: 03/28/22 Discharge Date: 04/01/22 Discharging Provider: Eli Blum PA-C Primary Care Provider: Timi Christensen MD Code Status: Attempt Resuscitation - DIAGNOSES Admission Diagnoses: Intertrochanteric fracture right femur Fall at home Hypertension Nonrheumatic aortic valve stenosis with regurgitation Anemia History of transischemic attack Osteoporosis, history of left fracture Bilateral hip osteoarthritis Discharge Diagnoses with Status of Each Condition: All diagnoses above are stable including anemia post operatively - HPI History of Present Illness: 76-year-old female who took a ground-level fall on black ice on 03/28/2022. She immediate pain to her right hip and reports she isunable to bear weight on her right leg. She was brought to the emergency room where she was evaluated, found to have a right intertrochanteric hip fracture. Orthopedic consultation was obtained. She does have a history of a left hip fracture, similar in nature. She also has a history of bilateral hip osteoarthritis, left greater than right. She is ambulatory, independent and does not use walking aids normally. She denies chest pain, shortness of breath, dizziness, syncope or loss of consciousness associated with her fall. - CONSULTS | PROCEDURES Consultations: Hospitalist Procedures: Right hip x-ray: Mildly displaced intertrochanteric fracture of the right femur. Osteoarthritis of the right hip. ORIF of right hip with intermedullar nailing with screws - HOSPITAL COURSE Hospital Course: On 03/28/2022 she was admitted to the orthopedic surgery service. Her pain was controlled and she was prepared for surgery the next day. She was given Transexamic acid on admission with IV fluids and pain control. Hospitalist service was consulted for management of medical comorbidities including hypertension and anmeia. She was made n.p.o. status and prepared for surgery. Sunday03/29/2022 she was taken to the operating room by Dr. Benedict for an open reduction internal fixation of the right hip intertrochanteric fracture with intramedullary nail and hip screw. She tolerated the procedure well and was transferred back to the floor. She worked with physical therapy and Occupational Therapy. Her hemoglobin was monitored and stable postoperatively. She tolerated normal diet without nausea or vomiting. She denied chest pain, trouble breathing, fever chills and drainage from the incision site. Her blood pressure was managed by hospitalist service. On 04/01/2022 she was stable for discharge home per orthopedic surgeon, physical therapy and Occupational Therapy and social work were all in agreement with this plan. - PHYSICAL EXAM AT DISCHARGE General Appearance: positive: No acute distress, Alert Respiratory: positive: Chest non-tender, No respiratory distress Cardiovascular: positive: Regular rate & rhythm Skin: positive: Color nml, No rash, Warm, Dry. negative: Diaphoresis Extremities: positive: Non-tender, Nml appearance, Other (Dermabond glue below mepelex dressing, absorbable sutures in place, sciatic and femoral nerve intact, neurovascularly intact to right lower extremity, appropriate range of motion post operatively ) Neurologic/Psychiatric: positive: Oriented x3 - LABS Result Diagrams: 04/01/22 05:10 04/01/22 05:10 - DIAGNOSTIC IMAGING Diagnostic Imaging Results: Final report reviewed - QUALITY (Female Hip Fx Only) Was patient sent home on osteoporosis medication?: Yes - FOLLOW UP Follow Up: Follow-up with the [facility] orthopedic clinic within 1 week of discharge. Follow up with primary care provider after discharge for management of hypertension and anemia. - TIME SPENT Time Spent in Discharge (Minutes): 35"
--- NOTE | 2022-03-31 15:15 | PROVIDER PROGRESS NOTE ---
Assessment/Plan - Problem List (1) Intertrochanteric fracture of right hip Qualifiers: Encounter type: subsequent encounter Assessment/Plan: Caused by fall at home. She had successful orthopedic surg on 03/29. Today is POD #3. Plan: Continue pain meds and DVT prophylaxis meds as per Ortho PT and OT ar working with her and recommend PT with Home Health. I will send in a referral for this. I informed Orthopedic HILARIO Mejias. (2) Fall at home Conclusion/Plan: Apparently this was a fall because of an icy surface. Plan: Because of her anemia plus prior history of falls, after surgery we will follow orthostatic vital signs daily. Thus far all are OK. (3) Nonrheumatic aortic valve stenosis with regurgitation Conclusion/Plan: Her EKG showed the same LVH voltage with NSSTT changes, as a year ago. She said she did start going to a assessment counselor at [facility]. Plan: We need to watch her fluid balance and BP control, since excessive fluids or high BP may cause CHF. (4) Hypertension Conclusion/Plan: Stable. We have resumed her home med which is DILAN inhibitor. Qualifiers: Hypertension type: primary hypertension Qualified Code(s): I10 - Essential (primary) hypertension (5) Iron deficiency Anemia Conclusion/Plan: She presented mildly anemic, hemoglobin slt lower after surg, with a normal MCV. We checked iron stores and B12 and folate levels. She is Iron deficient Plan: Will start daily oral Iron replacement therapy. She is already constipated from narcotics, and oral Iron will add to constipation She needs a laxative at discharge Will watch CBC daily while she is here, transfuse if Hgb <7. (6) Dry eyes Improved. I suspect she had tape over both eyes while she had general anesthesia, which caused upper eyelid swelling and redness when tape pulled off, post op. Plan: Artificial tears have been ordered. - Current Meds Current Meds: Current Medications Generic Name Dose Route Start Last Admin Trade Name Freq PRN Reason Stop Dose Admin Acetaminophen 1,000 mg 03/29/22 22:00 03/31/22 14:17 Acetaminophen 500 Mg Tablet PO 1,000 mg TID NITO Administration Aspirin 81 mg 03/29/22 21:00 03/31/22 08:13 Aspirin Ec 81 Mg Tablet PO 81 mg BID NITO Administration Atorvastatin Calcium 40 mg 03/28/22 21:00 03/30/22 21:20 Atorvastatin 40 Mg Tablet PO 40 mg QPM NITO Administration Calcium Carbonate/Glycine 500 mg 03/30/22 12:00 03/31/22 08:13 Calcium Carb (Oyster Shell) 500 Mg Tablet PO 500 mg DAILY NITO Administration Carboxymethylcellulose 1 drops 03/29/22 17:25 03/29/22 21:17 Carboxymethylcellulose Ophth Drops EACHEYE 1 drops PRN PRN Administration Dry Eye Cholecalciferol 800 unit 03/30/22 12:00 03/31/22 08:13 Cholecalciferol 400 Unit Tablet PO 800 unit DAILY NITO Administration Ferrous Gluconate 324 mg 03/31/22 08:00 03/31/22 08:13 Ferrous Gluconate 324 Mg Tablet PO 324 mg DAILYWM NITO Administration Lisinopril 20 mg 03/29/22 09:00 03/31/22 08:13 Lisinopril 20 Mg Tablet PO 20 mg DAILY NITO Administration Ondansetron HCl 4 mg 03/28/22 16:43 03/28/22 17:42 Ondansetron 4 Mg/2 Ml Vial IVP 4 mg Q6HR PRN Administration Nausea / Vomiting Oxycodone HCl 5 mg 03/28/22 16:58 03/31/22 09:33 Oxycodone 5 Mg Tablet PO 5 mg Q4HR PRN Administration Pain 5 to 7 Polyethylene Glycol 17 gm 03/30/22 09:00 03/31/22 08:12 Polyethylene Glycol 3350 17 Gm Packet PO 17 gm DAILY NITO Administration Prochlorperazine Edisylate 10 mg 03/28/22 19:31 03/28/22 20:04 Prochlorperazine 10 Mg/2 Ml Vial IVP 10 mg Q6HR PRN Administration Nausea / Vomiting Senna 17.2 - 25.8 mg 03/31/22 13:00 03/31/22 14:17 Senna 8.6 Mg Tablet PO 04/01/22 07:01 17.2 mg Q6H NITO Administration Sodium Chloride 10 ml 03/28/22 17:00 03/31/22 11:44 Sodium Chloride Flush 0.9% 10 Ml Syringe IVP Not Given 0100,0900,1700 [facility] Zolpidem Tartrate 5 mg 03/28/22 17:05 03/30/22 23:27 Zolpidem 5 Mg Tablet PO 5 mg QPM PRN Administration Insomnia - Lab Result Fish Bone Diagrams: 03/31/22 05:33 03/30/22 05:30 - Additional Planning My Orders: My Active Orders 03/30/22 18:51 Orthostatic [Vital Signs - Orthostatic] [RC] DAILY 03/31/22 Home Health Referral [CONS] Routine 03/31/22 08:00 Ferrous Gluconate [Fergon] 324 mg PO DAILYWM 04/01/22 05:00 BMP - BASIC METABOLIC PANEL [CHEM] DAILYLAB CBC - COMP BLD CT W/AUTO DIFF [HEME] DAILYLAB Subjective - Subjective Patient Reports: Resting Comfortably (Pain is controlled w/ meds. She is progressing slowly with PT.) Objective Vital Signs: Vital Signs - 24 hr 03/30/22 03/30/22 03/30/22 15:47 20:08 23:14 Temperature 37.2 C 37.1 C 36.7 C Heart Rate [ 75 72 76 Brachial] Respiratory 16 20 18 Rate Blood Pressure [Left Brachial artery] Blood Pressure 157/80 H 158/70 H 178/77 H [Right Brachial artery] O2 Saturation 99 100 98 03/31/22 03/31/22 03/31/22 03:27 07:51 15:04 Temperature 36.6 C 36.4 C L 36.8 C Heart Rate [ 72 71 77 Brachial] Respiratory 16 18 19 Rate Blood Pressure 166/73 H [Left Brachial artery] Blood Pressure 156/76 H 167/72 H [Right Brachial artery] O2 Saturation 97 99 98 Oxygen O2 Source Room air I&O (Last 24 Hrs): Intake and Output Totals x24h 03/29/22 03/30/22 03/31/22 23:59 23:59 23:59 Intake Total 3625.333 4296 730 Output Total 575 1650 1100 Balance 3050.333 2646 -370 General: Alert, Oriented x3 HEENT: Mucous membr. moist/pink Neck: Supple, No JVD Neuro: Alert, Non Focal Cardiovascular: Regular rate, Other (Murmur) Respiratory: No respiratory distress Abdomen: Soft Extremities: No edema - Results Results: Laboratory Results WBC 6.6 x10^3/uL (4.8-10.8) 03/31/22 05:33 RBC 2.85 10^6/uL (4.20-5.40) L 03/31/22 05:33 Hgb 8.4 g/dL (12.0-16.0) L 03/31/22 05:33 Hct 25.8 % (37.0-47.0) L 03/31/22 05:33 MCV 90.5 fL (81.0-99.0) 03/31/22 05:33 MCH 29.5 pg (27.0-31.0) 03/31/22 05:33 MCHC 32.6 g/dL (32.0-36.0) 03/31/22 05:33 RDW 13.0 % (12.0-15.0) 03/31/22 05:33 Plt Count 209 10^3/uL (130-450) 03/31/22 05:33 MPV 10.0 fL (7.9-10.8) 03/31/22 05:33 Neut # (Auto) 4.8 10^3/uL (1.5-6.6) 03/31/22 05:33 Lymph # (Auto) 1.2 10^3/uL (1.5-3.5) L 03/31/22 05:33 [place] # (Auto) 0.4 10^3/uL (0.0-1.0) 03/31/22 05:33 Eos # (Auto) 0.2 10^3/uL (0.0-0.7) 03/31/22 05:33 Baso # (Auto) 0.0 10^3/uL (0.0-0.1) 03/31/22 05:33 Absolute Nucleated RBC 0.00 x10^3/uL 03/31/22 05:33 Nucleated RBC % 0.0 /100WBC 03/31/22 05:33 PT 11.2 secs (9.9-12.6) 03/28/22 10:29 INR 1.0 (0.8-1.2) 03/28/22 10:29 Sodium 130 mmol/L (135-145) L 03/30/22 05:30 Potassium 4.4 mmol/L (3.5-5.0) 03/30/22 05:30 Chloride 102 mmol/L (101-111) 03/30/22 05:30 Carbon Dioxide 24 mmol/L (21-32) 03/30/22 05:30 Anion Gap 4.0 (6-13) L 03/30/22 05:30 BUN 14 mg/dL (6-20) 03/30/22 05:30 Creatinine 0.8 mg/dL (0.4-1.0) 03/30/22 05:30 Estimated GFR (MDRD) 70 (>89) L 03/30/22 05:30 Glucose 113 mg/dL (70-100) H 03/30/22 05:30 Calcium 7.4 mg/dL (8.5-10.3) L 03/30/22 05:30 Magnesium 2.1 mg/dL (1.7-2.8) 03/28/22 10:29 Iron 19 ug/dL (28-170) L 03/30/22 05:30 TIBC 185 ug/dL (250-450) L 03/30/22 05:30 % Saturation 10 % (20-50) L 03/30/22 05:30 Transferrin 132 mg/dL (192-382) L 03/30/22 05:30 Total Bilirubin 0.4 mg/dL (0.2-1.0) 03/28/22 10:29 AST 25 IU/L (10-42) 03/28/22 10:29 ALT 21 IU/L (10-60) 03/28/22 10:29 Alkaline Phosphatase 49 IU/L (42-121) 03/28/22 10:29 Total Protein 6.5 g/dL (6.7-8.2) L 03/28/22 10:29 Albumin 3.9 g/dL (3.2-5.5) 03/28/22 10:29 Globulin 2.6 g/dL (2.1-4.2) 03/28/22 10:29 Albumin/Globulin Ratio 1.5 (1.0-2.2) 03/28/22 10:29 Lipase 30 U/L (22-51) 03/28/22 10:29 Vitamin B12 1079 pg/mL (180-914) H 03/30/22 05:30 Folate 7.63 ng/mL (5.90 - >24.8) 03/30/22 05:30 Nasal Adenovirus (PCR) NOT DETECTED 03/28/22 11:50 Nasal B. parapertussis DNA (PCR) NOT DETECTED 03/28/22 11:50 Nasal Coronavir 229E PCR NOT DETECTED 03/28/22 11:50 Nasal Coronavir HKU1 PCR NOT DETECTED 03/28/22 11:50 Nasal Coronavir NL63 PCR NOT DETECTED 03/28/22 11:50 Nasal Coronavir OC43 PCR NOT DETECTED 03/28/22 11:50 Nasal Enterovir/Rhinovir PCR NOT DETECTED 03/28/22 11:50 Nasal Influenza B PCR NOT DETECTED 03/28/22 11:50 Nasal Influenza A PCR NOT DETECTED 03/28/22 11:50 Nasal Parainfluen 1 PCR NOT DETECTED 03/28/22 11:50 Nasal Parainfluen 2 PCR NOT DETECTED 03/28/22 11:50 Nasal Parainfluen 3 PCR NOT DETECTED 03/28/22 11:50 Nasal Parainfluen 4 PCR NOT DETECTED 03/28/22 11:50 Nasal RSV (PCR) NOT DETECTED 03/28/22 11:50 Nasal B.pertussis DNA PCR NOT DETECTED 03/28/22 11:50 Nasal C.pneumoniae (PCR) NOT DETECTED 03/28/22 11:50 Alex Human Metapneumo PCR NOT DETECTED 03/28/22 11:50 Nasal M.pneumoniae (PCR) NOT DETECTED 03/28/22 11:50 Nasal SARS-CoV-2 (PCR) NOT DETECTED 03/28/22 11:50 - Procedures Procedures: Procedures REPOSITION LEFT RADIUS, EXTERNAL APPROACH (11/30/20) REPOSITION LEFT UPPER FEMUR WITH INT FIX, OPEN APPROACH (11/30/20) TRANSFUSE NONAUT RED BLOOD CELLS IN PERIPH VEIN, PERC (11/30/20)
[2022-03-31] MEDS: ATORVASTATIN 40 MG TABLET PO SCH (21:26)
[2022-04-01] MEDS: oxyCODONE 5 MG TABLET PO PRN ×2 (00:07→10:10)
[2022-04-01] MEDS: SODIUM CHLORIDE FLUSH 0.9% 10 ML SYRINGE IVP SCH ×2 (00:08→08:17)
[2022-04-01] MEDS: ZOLPIDEM 5 MG TABLET PO PRN (00:08)
[2022-04-01] MEDS: SENNA 8.6 MG TABLET PO SCH ×2 (03:04→05:05)
[2022-04-01] MEDS: ACETAMINOPHEN 500 MG TABLET PO SCH (05:05)
[2022-04-01 05:38] LABS: BASOPHILS % (AUTO) 0.5 %; EOSINOPHILS # (AUTO) 0.3 10^3/uL (0.0-0.7); EOSINOPHILS % (AUTO) 3.2 %; HCT - HEMATOCRIT 27.2 % (37.0-47.0); HGB - HEMOGLOBIN 8.8 g/dL (12.0-16.0); LYMPHOCYTES # (AUTO) 1.8 10^3/uL (1.5-3.5); LYMPHOCYTES % (AUTO) 21.6 %; MEAN CORPUSCULAR HEMOGLOBIN 28.7 pg (27.0-31.0); MEAN CORPUSCULAR HGB CONC 32.4 g/dL (32.0-36.0); MEAN CORPUSCULAR VOLUME 88.6 fL (81.0-99.0); MONOCYTES # (AUTO) 0.5 10^3/uL (0.0-1.0); MONOCYTES % (AUTO) 6.1 %; NEUTROPHILS # (AUTO) 5.8 10^3/uL (1.5-6.6); NEUTROPHILS % (AUTO) 68.2 %; PLT - PLATELET COUNT 286 10^3/uL (130-450); RED BLOOD COUNT 3.07 10^6/uL (4.20-5.40); WHITE BLOOD COUNT 8.5 x10^3/uL (4.8-10.8)
[2022-04-01 05:41] LABS: CALCIUM 8.6 mg/dL (8.5-10.3); CREATININE 0.8 mg/dL (0.4-1.0); POTASSIUM 4.3 mmol/L (3.5-5.0)
[2022-04-01 07:46] VITALS: BP 169/71
[2022-04-01] MEDS: ASPIRIN EC 81 MG TABLET PO SCH (08:16)
[2022-04-01] MEDS: CALCIUM CARB (OYSTER SHELL) 500 MG TABLET PO SCH (08:16)
[2022-04-01] MEDS: polyethylene glycoL 3350 17 GM PACKET PO SCH (08:16)
[2022-04-01] MEDS: DOCUSATE SODIUM 250 MG CAPSULE PO SCH (08:16)
[2022-04-01] MEDS: CHOLECALCIFEROL 400 UNIT TABLET PO SCH (08:16)
[2022-04-01] MEDS: lisinopriL 20 MG TABLET PO SCH (08:16)
[2022-04-01] MEDS: FERROUS GLUCONATE 324 MG TABLET PO SCH (08:17)
--- NOTE | 2022-04-03 11:14 | XRAY Report ---
PROCEDURE: OR C-Arm Procedure INDICATIONS: RIGHT HIP NAIL FLUORO TIME: 0:33 MIN COMPARISON: 03/28/2022 Findings/impression: 3 intraoperative images were obtained for right femoral intramedullary tatyana with interlocking screw pl acement. Please see operative note for full details. Reviewed by: Jae Casarez MD on 04/03/2022 11:13 AM PST Approved by: Jae Casarez MD on 04/03/2022 11:13 AM PST Station ID: [id number]
== END 2022-04-01 01:15 | disposition home health service (06) | DRG 482 ==
LOC: EDUNIT# → ED 09:13 → MS2 16:43
PROVIDERS: ADMIT Orthopaedic Surgery; ATTEND Internal Medicine
PROC: 0QS606Z Reposition Right Upper Femur with Intramedullary Internal Fixation Device, Open Approach (ICD-10-PCS; principal; 2022-03-29 13:30)
DX: S72.141A Displaced intertrochanteric fracture of right femur, initial encounter for closed fracture (principal); W00.0XXA Fall on same level due to ice and snow, initial encounter; M16.0 Bilateral primary osteoarthritis of hip; Z20.822 Contact with and (suspected) exposure to COVID-19; I10 Essential (primary) hypertension; Z86.73 Personal history of transient ischemic attack (TIA), and cerebral infarction without residual deficits; I35.0 Nonrheumatic aortic (valve) stenosis; D64.9 Anemia, unspecified; M81.0 Age-related osteoporosis without current pathological fracture; Z66 Do not resuscitate; I35.1 Nonrheumatic aortic (valve) insufficiency; H57.89 Other specified disorders of eye and adnexa
CPT/HCPCS: 36415; 73502; 80048; 80053; 82607; 82746; 83540; 83690; 83735; 84466; 85025; 85610; 87633; 93005; 96372; 96374; 96375; 97161; 97166; 97530; 97535; 99284; 99285; A9270; J0690; J1170; J7120

== ENCOUNTER 2022-05-30 14:13 | Outpatient (CLI) | payer MEDICARE ==
--- NOTE | 2022-05-30 14:07 | XRAY Report ---
PROCEDURE: Hip 2 View RT INDICATIONS: RIGHT HIP ORIF TECHNIQUE: AP view of the hips and lateral view of the right hip. COMPARISON: None FINDINGS: Bones: Both hips demonstrate postoperative changes of prior trochanteric femoral fixation. The right hip has a healing intertrochanteric fracture noted. Hardware is intact with no pericardial hardware lucency. No acute fractures or dislocations. No suspicious bony lesions. The visualized pelvic ring appears intact. Soft tissues: No suspicious soft tissue calcifications or masses. IMPRESSION: Healing trochanteric fracture of the right hip status post ORIF without complication. Reviewed by: Nathan Mcneil on 05/30/2022 2:06 PM PST Approved by: Nathan Mcneil on 05/30/2022 2:06 PM PST Station ID: [id number]
== END 2022-05-30 14:14 | disposition home or self-care (01) ==
LOC: DI.WOS 14:13
PROVIDERS: ATTEND Orthopaedic Surgery
DX: S72.141D Displaced intertrochanteric fracture of right femur, subsequent encounter for closed fracture with routine healing (principal)